=== PATIENT | female | born 1955 | race Caucasian/White ===

== ENCOUNTER 2020-12-25 15:09 | Outpatient (CLI) | payer MEDICARE, SELFPAY ==
--- NOTE | 2020-12-25 15:14 | MM_ITS ---
WS: [id number] BILATERAL DIGITAL SCREENING MAMMOGRAPHY WITH CAD CLINICAL INFORMATION: SCREENING HISTORY: Screening mammogram. No current complaints. COMPARISON: None. TECHNIQUE: Bilateral CC and MLO views. FINDINGS: Scattered fibroglandular densities bilaterally. No suspicious focal mass, asymmetry, calcifications, or architectural distortion. No evidence of malignancy. Vascular calcification. A few punctate calcif ications. MM/[place] [id number] IMPRESSION: BI-RADS: 2-Benign FOLLOW UP: 1 Year Follow-up Recommend return to annual screening mammography.
== END 2020-12-25 15:10 | disposition home or self-care (01) ==
LOC: RADSHAW 15:13
PROVIDERS: Family Provider Family Medicine; PCP Family Medicine; Visit Provider Family Medicine
DX: Z12.31 Encounter for screening mammogram for malignant neoplasm of breast (principal)
CPT/HCPCS: 77067

== ENCOUNTER 2021-03-22 14:12 | Outpatient (CLI) | payer MEDICARE, SELFPAY ==
--- NOTE | 2021-03-22 14:27 | XR_ITS ---
WS: [id number] DEXA (DUAL ENERGY X-RAY ABSORPTIOMETRY) Bone mineral density was performed using a [email or web address] machine. HISTORY: DIABETES, HYPERLIPIDEMIA, HYPERTENSION, ANNUAL EXAM COMPARISON: None available. Lumbar spine BMD (L1-L4): 1.345 g/cm2 T score: 1.4 Z score: 1.8 Total hip BMD: Left: 1.275 g/cm2. T score: 2.1 Z score: 2.6 Right: 1.257 g/cm2. T score: 2.0 Z score: 2.4 10 year probability of a major osteoporotic fracture is 8%. XR/XR DEXA axial skeleton* [id number] IMPRESSION: NORMAL BONE MINERAL DENSITY based upon the WHO classification for females.
== END 2021-03-22 14:13 | disposition home or self-care (01) ==
LOC: RADWPI 14:16
PROVIDERS: PCP Family Medicine; Visit Provider Family Medicine
DX: E11.9 Type 2 diabetes mellitus without complications (principal); E78.5 Hyperlipidemia, unspecified; Z78.0 Asymptomatic menopausal state; I10 Essential (primary) hypertension
CPT/HCPCS: 77080

== ENCOUNTER 2021-07-16 16:40 | Inpatient (IN) | payer MEDICARE, SELFPAY ==
[2021-07-16 17:04] VITALS: BP 139/82; PULSE 86; RESP 18; TEMP 36.4; O2SAT 98; BMI 42.9
--- NOTE | 2021-07-16 19:36 | CTR_ITS ---
PROCEDURE INFORMATION: Exam: CT Abdomen And Pelvis With Contrast Exam date and time: 07/16/2021 7:36 PM Age: 65 years old Clinical indication: Nausea and vomiting and other: Diarrhea; Abdominal pain; Localized; Right lower quadrant (rlq); Prior surgery; Surgery type: Hyst; Patient HX: N/v/d. Rlq pain radiating to belly button; Additional info: Eval infection TECHNIQUE: Imaging protocol: Computed tomography of the abdomen and pelvis with contrast. Radiation optimization: All CT scans at this facility use at least one of these dose optimization techniques: automated exposure control; mA and/or kV adjustment per patient size (includes targeted exams where dose is matched to clinical indication); or iterative reconstruction. Contrast material: OMNI 300; Contrast volume: 95 ml; Contrast route: INTRAVENOUS (IV); COMPARISON: CTA Chest-Pulmonary Emb [id number] 04/23/2018 9:19 AM RADIATION DOSE METRICS: Total DLP (mGy-cm): 1733.82 FINDINGS: Lungs: There is subsegmental atelectasis in the lung bases. Diaphragm: There is a small sliding-type hiatal hernia. Liver: The liver is normal. Gallbladder and bile ducts: The gallbladder is distended. The wall is thickened. There is pericholecystic edema. There is a calcified stone in the gallbladder neck at the cystic duct origin. See coronal series 602, image 48. There is no intrahepatic or extrahepatic bile duct dilation. Pancreas: There is moderate atrophy of the pancreas. Spleen: The spleen is unremarkable. Adrenal glands: There is hypertrophy of the right adrenal gland. Kidneys and ureters: The kidneys are unremarkable. No hydronephrosis or stones. No ureteral dilation. Stomach and bowel: The stomach is decompressed, preventing meaningful evaluation of wall thickness. The small bowel is nondilated. The colon is unremarkable. Appendix: The appendix is normal. Intraperitoneal space: There is no free air or significant intraperitoneal free fluid. Vasculature: There is mild aortic atherosclerotic disease. The portal, splenic and superior mesenteric veins are patent. Lymph nodes: There is no lymphadenopathy in the retroperitoneum, mesentery, pelvis or inguinal regions. Urinary bladder: The urinary bladder is unremarkable. Reproductive: The uterus is absent. There is no adnexal mass or large cyst. Bones/joints: There is mild degenerative disease in the lumbar spine. The pelvis and proximal femora are intact. Soft tissues: The abdominal wall is intact. CT/CT abdomen pelvis w con* [id number] IMPRESSION: 1. Highly suspicious findings for acute cholecystitis including gallbladder distention, wall thickening, and a stone the cystic duct origin. 2. Incidental findings above. Radiation Dose CTDIVOL = (mGy): DLP = 1733.82 (mGy-cm)
[2021-07-16 19:57] LABS: Basophils % 0.2 %; Eosinophils % 0.1 %; Hemoglobin 10.9 g/dL (11.5-15.3); Lymphocytes # 0.6 10^3/uL (0.8-4.8); Lymphocytes % 4.6 %; Mean Corpuscular HGB Conc 31.1 g/dL (30.0-36.0); Mean Corpuscular Hemoglobin 29.1 pg (28.0-34.0); Mean Corpuscular Volume 93.6 fl (81-99); Mean Platelet Volume 11.1 fL (7.4-10.4); Monocytes # 0.6 10^3/uL (0.2-0.9); Monocytes % 4.3 %; Neutrophils # 12.51 10^3/uL (1.8-7.7); Neutrophils % 90.4 %; Nucleated Red Blood Cells % 0 %; Platelet Count 188 10^3/cmm (130-400); Red Blood Count 3.74 10^6/uL (4.1-5.3); Red Cell Distribution Width 14.3 % (12.1-15.1); White Blood Count 13.8 10^3/uL (4.0-10.0)
[2021-07-16] MEDS: sodium chloride 0.9% 500 ML IV (20:02)
[2021-07-16] MEDS: lidocaine 2% viscous 15 ML, aluminum-mag hydrox-simethicon 30 ML, sucralfate oral liq 1 GM PO (20:02)
--- NOTE | 2021-07-16 20:03 | W.ED.GENADLT ---
HPI - General Adult General: Chief complaint: Abdominal Pain Stated complaint: ABD PAIN, N/V, COLD CHILLS Time Seen by Provider: 07/16/21 19:33 History of Present Illness: HPI narrative: Patient is 65-year-old female with a history obesity presents the emergency room with complaints of RUQ abdominal pain, nausea/vomiting and diarrhea x1 day. Patient states that pain started this morning and since then has been unable to tolerate p.o. Patient reported increasing chills, denies any urinary symptoms. Patient says the pain started in the right upper quadrant and shoots towards the left upper quadrant. Denies any melena/hematochezia, chest pain, shortness of breath, palpitation, or lightheadedness. No prior abdominal surgeries, no history of kidney stones. Onset: earlier today Duration:ongoing Location:home Severity: moderate Review of Systems Narrative: Constitutional: No fever, no chills. HEENT: No vision changes CV: No chest pain, no palpitations PULM: no cough, no dyspnea. GI: +RUQ abdominal pain, +N/+V/+D. : No dysuria MSKEL: No muscle pain SKIN: No new rashes, no lesions. NEURO: No headache, no focal weakness. HEME: No visible bruises PSYCH: Normal mood PFSH ED PFSH: Medical History (Updated 07/17/21 @ 15:34 by Papa Solorzano MD) Anemia Arthritis Asthma Cervical disc disease Depression Diabetes GERD (gastroesophageal reflux disease) / Hiatal hernia Gout Hyperlipidemia Hypertension Surgical History Elbow dislocation Right History of bilateral salpingo-oophorectomy (BSO) History of carpal tunnel release Right History of hysterectomy Status post bilateral knee replacements Social History (Updated 07/17/21 @ 15:27 by Papa Solorzano MD) Smoking and tobacco status: never smoked Alcohol intake: never Female Reproductive History: Date of last menstrual period: 12/14/20 Physical Exam Narrative: EXAM NARRATIVE: Head: Atraumatic Eyes: PERRL, conjunctiva without injection ENT: Mucous membrane moist NECK: Supple, ROM intact LUNGS: LCTAB, no crackles/rhonchi CV: RRR ABDOMEN: Soft, +RUQ abd ttp, no guarding rebound, guarding, rigidity. No CVA tenderness to percussion. +Shoemaker, Neg McBurney's point tenderness, no suprabupic tenderness to palpation. EXTREMITY: Normal ROM SKIN: No rash or erythema NEURO: Awake and alert, no focal motor deficits PSYCH: Normal mood and affect Course Vital Signs: Vital signs: Vital Signs Temperature 98.7 F 07/19/21 11:36 Pulse Rate 65 07/19/21 11:36 Respiratory Rate 16 07/19/21 11:36 Blood Pressure 126/73 07/19/21 07:23 Pulse Oximetry 95 07/19/21 11:36 MDM - General Adult MDM Narrative: Medical decision making narrative: 65-year-old female with history obesity presented to emergency room with complaints of right upper quadrant abdominal pain, nausea vomiting, and diarrhea this morning. On exam, patient has Shoemaker sign. No CVA tenderness, guarding no rebound tenderness. WBC of 13.8. CT showed acute cholecystitis. Patient received cefazolin in the emergency room. She will may be made n.p.o., preop labs are ordered. Disposition: OR Lab Data: Labs: Lab Results 07/16/21 07/16/21 07/16/21 19:45 19:45 19:45 WBC 13.8 10^3/uL H 10 ^3/uL (4.0-10.0) RBC 3.74 10^6/uL L 10 ^6/uL (4.1-5.3) Hgb 10.9 g/dL L g/dL (11.5-15.3) Hct 35.0 % L % (37.0-47.0) MCV 93.6 fl fl (81-99) MCH 29.1 pg pg (28.0-34.0) MCHC 31.1 g/dL g/dL (30.0-36.0) RDW 14.3 % % (12.1-15.1) Plt Count 188 10^3/cmm 10^3 /cmm (130-400) MPV 11.1 fL H fL (7.4-10.4) Neut % (Auto) 90.4 % % Lymph % (Auto) 4.6 % % [place] % (Auto) 4.3 % % Eos % (Auto) 0.1 % % Baso % (Auto) 0.2 % % Neut # (Auto) 12.51 10^3/uL H 1 0^3/uL (1.8-7.7) Lymph # (Auto) 0.6 10^3/uL L 10^ 3/uL (0.8-4.8) [place] # (Auto) 0.6 10^3/uL 10^3/ uL (0.2-0.9) Eos # (Auto) 0.0 10^3/uL 10^3/ uL (0.0-0.8) Baso # (Auto) 0.0 10^3/uL 10^3/ uL (0.0-0.1) Nucleated RBC % (a uto) 0 % % Nucleated RBCs # 0.0 /100WBC /100W BC PT 12.70 SECONDS SEC ONDS (12.1-14.9) INR 0.92 (0.8-1.2) APTT 25.1 SECONDS SECO NDS (23.9-36.7) Sodium 139 mmol/L mmol/L (136-145) Potassium 4.5 mmol/L mmol/L (3.5-5.1) Chloride 102 mmol/L mmol/L (98-107) Carbon Dioxide 24 mmol/L mmol/L (22-29) Anion Gap 17.5 (5-19) BUN 26 mg/dL H mg/dL (8-23) Creatinine 1.0 mg/dL H mg/dL (0.5-0.9) GFR Calculation 55.5 mL/min L mL/ min (90-130) Glucose 222 mg/dL H mg/dL (65-115) Calculated Osmolal ity 300 mOsm/kg H mOs m/kg (285-295) Calcium 9.0 mg/dL mg/dL (8.5-10.5) Total Bilirubin 0.2 mg/dL mg/dL (0.15-1.2) AST 15 U/L U/L (0-32) ALT 17 U/L U/L (0-33) Alkaline Phosphata se 87 IU/L IU/L (35-105) Total Protein 6.2 g/dL L g/dL (6.6-8.7) Albumin 4.2 g/dL g/dL (3.5-5.2) Globulin 2.0 g/dL g/dL (1.3-4.6) Lipase 25 U/L U/L (13-60) Imaging Data^: Other Imaging: Radiologist's impression: [facility] [id number] [place], [place] [address]VU Scan ReportSigned Patient: Ina Frey #: [id number]: [id number]#:[id number]/Sex: 65 / FADM Date: 07/16/21Loc: ERRoom/Bed:Attending Dr: Ordering Provider/Ordering MD: Alesia Alvarenga MD Date of Service: 07/16/21 Procedure(s): CT abdomen pelvis w con* [id number] Accession Number(s): [id number] Report Number: [id number] PROCEDURE INFORMATION: Exam: CT Abdomen And Pelvis With Contrast Exam date and time: 07/16/2021 7:36 PM Age: 65 years old Clinical indication: Nausea and vomiting and other: Diarrhea; Abdominal pain; Localized; Right lower quadrant (rlq); Prior surgery; Surgery type: Hyst; Patient HX: N/v/d. Rlq pain radiating to belly button; Additional info: Eval infection TECHNIQUE: Imaging protocol: Computed tomography of the abdomen and pelvis with contrast. Radiation optimization: All CT scans at this facility use at least one of these dose optimization techniques: automated exposure control; mA and/or kV adjustment per patient size (includes targeted exams where dose is matched to clinical indication); or iterative reconstruction. Contrast material: OMNI 300; Contrast volume: 95 ml; Contrast route: INTRAVENOUS (IV); COMPARISON: CTA Chest-Pulmonary Emb [id number] 04/23/2018 9:19 AM RADIATION DOSE METRICS: Total DLP (mGy-cm): 1733.82 FINDINGS: Lungs: There is subsegmental atelectasis in the lung bases. Diaphragm: There is a small sliding-type hiatal hernia. Liver: The liver is normal. Gallbladder and bile ducts: The gallbladder is distended. The wall is thickened. There is pericholecystic edema. There is a calcified stone in the gallbladder neck at the cystic duct origin. See coronal series 602, image 48. There is no intrahepatic or extrahepatic bile duct dilation. Pancreas: There is moderate atrophy of the pancreas. Spleen: The spleen is unremarkable. Adrenal glands: There is hypertrophy of the right adrenal gland. Kidneys and ureters: The kidneys are unremarkable. No hydronephrosis or stones. No ureteral dilation. Stomach and bowel: The stomach is decompressed, preventing meaningful evaluation of wall thickness. The small bowel is nondilated. The colon is unremarkable. Appendix: The appendix is normal. Intraperitoneal space: There is no free air or significant intraperitoneal free fluid. Vasculature: There is mild aortic atherosclerotic disease. The portal, splenic and superior mesenteric veins are patent. Lymph nodes: There is no lymphadenopathy in the retroperitoneum, mesentery, pelvis or inguinal regions. Urinary bladder: The urinary bladder is unremarkable. Reproductive: The uterus is absent. There is no adnexal mass or large cyst. Bones/joints: There is mild degenerative disease in the lumbar spine. The pelvis and proximal femora are intact. Soft tissues: The abdominal wall is intact. CT/CT abdomen pelvis w con* [id number] IMPRESSION: 1. Highly suspicious findings for acute cholecystitis including gallbladder distention, wall thickening, and a stone the cystic duct origin. 2. Incidental findings above. Radiation Dose CTDIVOL = (mGy): DLP = 1733.82 (mGy-cm) Dictated By:Edvin Crocker MDSigned By:Edvin Crocker MDSigned Date/Time:07/16/21D/ 35 Discharge Plan Discharge Patient Disposition: Admitted As Inpatient Admit Provider: Vadim Calderón Clinical Impression: Abdominal pain, Acute cholecystitis Condition: Stable Discharge Diet: Advance as tolerated Discharge Activity: Limit activity as instructed Coding Level of Care Code ED Community Development Technician for Paul Lovelace
[2021-07-16 20:18] LABS: Alanine Aminotransferase 17 U/L (0-33); Albumin Level 4.2 g/dL (3.5-5.2); Alkaline Phosphatase 87 IU/L (35-105); Anion Gap 17.5 (5-19); Aspartate Amino Transferase 15 U/L (0-32); Blood Urea Nitrogen 26 mg/dL (8-23); Carbon Dioxide 24 mmol/L (22-29); Chloride 102 mmol/L (98-107); Glomerular Filtration Rate 55.5 mL/min (90-130); Glucose 222 mg/dL (65-115); Lipase 25 U/L (13-60); Osmolality Calculated 300 mOsm/kg (285-295); Potassium 4.5 mmol/L (3.5-5.1); Sodium 139 mmol/L (136-145); Total Bilirubin 0.2 mg/dL (0.15-1.2); Total Protein 6.2 g/dL (6.6-8.7)
[2021-07-16 20:38] VITALS: BP 151/89; PULSE 79; RESP 16; O2SAT 97
[2021-07-16] MEDS: iohexol 300 mg/mL 100 mL Btl IV (20:46)
[2021-07-16] MEDS: ceFAZolin 1,000 MG in sodium chloride 0.9% (plus) 50 ML 100 MG IV (21:53)
[2021-07-16 21:54] LABS: INR 0.92 (0.8-1.2)
[2021-07-16 21:55] LABS: Partial Thromboplastin Time 25.1 SECONDS (23.9-36.7)
[2021-07-16 22:52] VITALS: BP 138/88; PULSE 100; RESP 16; O2SAT 93
[2021-07-16] MEDS: HYDROmorphone 1 mg/mL INJ 1 mL IVP (23:34)
[2021-07-16 23:52] LABS: Add Urine Microscopic? NO; Charge for UA Resulting for Rev
[2021-07-17] VITALS (25 sets, daily range): BP systolic 106–153; BP diastolic 59–84; PULSE 75–114; RESP 16–21; TEMP 36.4–38.2; O2SAT 90–97; BMI 43.7
[2021-07-17 00:03] LABS: Urine Appearance Clear (CLEAR); Urine Color Yellow (Yellow); pH Urine 5 (5-7)
[2021-07-17 00:04] LABS: Bilirubin Urine Neg (Negative); Blood Urine Neg (Negative); Glucose Urine UA Norm (Normal); Ketones Urine Negative (Negative); Leukocyte Esterase Urine Negative (Negative); Nitrate Urine Negative (Negative); Protein Urine Neg (Negative); Urobilinogen Urine Norm (Negative)
--- NOTE | 2021-07-17 03:56 | PM.HP ---
Providers/Chief Complaint Admitting Physician: Vadim Calderón MD Primary Care Provider: Chato Palma MD Chief Complaint: ABD PAIN, N/V, COLD CHILLS History of Present Illness Kathy Frey is a 65 year old female who developed significant right upper quadrant abdominal pain yesterday morning. She felt very gassy and bloated with the episode. She said she vomited multiple times but saw no evidence of hematemesis. She did have a bout of diarrhea yesterday. She said she began having some fevers. She came to the emergency room and imaging revealed evidence of acute calculus cholecystitis. The patient states that she has been having episodes like this on and off over the past 10 years. They have never been this bad. She has noticed that eating particular foods and especially raw foods such as vegetables will cause her pain to come on. She always assumed it was her hiatal hernia that she has been diagnosed with in the past. Review of Systems General: Reports: 10 or more systems reviewed and unremarkable except in HPI and below Const: Reports: fever(s) and chills GI: Reports: abdominal pain, nausea, vomiting and diarrhea Musc: Reports: neck pain ( Bulging disks ) Psych: Reports: depression Medications/Allergies Home Medications Medication Instructions Recorded Confirmed Last Taken Type allopurinol 300 mg PO DAILY 07/17/21 07/17/21 07/16/21 History amoxicillin 500 mg PO DIRECTED 07/17/21 07/17/21 Unknown History fluticasone propionate 1 spray INTRANASAL DAILY 07/17/21 07/17/21 07/16/21 History furosemide 20 mg PO DAILY 07/17/21 07/17/21 07/16/21 History glimepiride 2 mg PO DAILY 07/17/21 07/17/21 07/16/21 History hydrochlorothiazide 25 mg PO DAILY 07/17/21 07/17/21 07/16/21 History lisinopril 40 mg PO DAILY 07/17/21 07/17/21 07/16/21 History meclizine 25 mg PO DIRECTED 07/17/21 07/17/21 Unknown History meloxicam 7.5 mg PO DAILY 07/17/21 07/17/21 07/16/21 History metformin 850 mg PO BID 07/17/21 07/17/21 07/16/21 History omeprazole 20 mg PO DAILY 07/17/21 07/17/21 07/16/21 History propranolol 40 PO BID 07/17/21 07/16/21 History propranolol 40 mg PO BID 07/17/21 07/17/21 07/16/21 History simvastatin 20 mg PO DAILY 07/17/21 07/17/21 07/16/21 History tramadol 50 mg PO DIRECTED 07/17/21 07/17/21 07/16/21 History triamcinolone acetonide 0.1 applic TOPICAL DIRECTED 07/17/21 07/17/21 07/16/21 History Allergies Allergy/AdvReac Type Severity Reaction Status Date / Time morphine Allergy ALGY-formic Verified 07/17/21 04:22 ation ofloxacin [From Floxin] Allergy ADR-Anxiety Verified 07/16/21 23:21 PFSH Acute PFSH: Medical History (Updated 07/17/21 @ 04:24 by Vadim Calderón MD) Anemia Arthritis Asthma Cervical disc disease Depression Diabetes GERD (gastroesophageal reflux disease) / Hiatal hernia Gout Hyperlipidemia Hypertension Surgical History (Updated 07/17/21 @ 04:21 by Vadim Calderón MD) Elbow dislocation Right History of bilateral salpingo-oophorectomy (BSO) History of carpal tunnel release Right History of hysterectomy Status post bilateral knee replacements Social History (Updated 07/17/21 @ 04:21 by Vadim Calderón MD) Smoking and tobacco status: never smoked Female Reproductive History: Date of last menstrual period: 12/14/20 Vitals/I&O/Wt Last Vital Signs Temp 98.2 F 07/17/21 03:55 Pulse 102 H 07/17/21 03:55 Resp 18 07/17/21 03:55 BP 111/66 07/17/21 03:55 Pulse Ox 90 07/17/21 03:55 07/16/21 07/16/21 07/17/21 14:59 22:59 06:59 Intake Total 550 / 550 Output Total 300 / 300 Balance 250 / 250 Weight last 48 hrs Weight 279 lb Weight 278 lb Physical Exam Narrative: EXAM NARRATIVE: The patient was encountered in her hospital room. She is in no acute distress but acts like she does not feel very well. The pupils are equal. No carotid bruits are heard. The lungs are clear anteriorly. The heart is regular but she is mildly tachycardic. The abdomen is moderately to severely obese. Bowel sounds are hypoactive. She has some mild tenderness in the epigastrium and rather significant tenderness in the right upper quadrant with a positive Shoemaker's sign. No obvious masses are palpated. The extremities may reveal some very mild edema. Neurologically she appears to be grossly intact. Data : 07/16/21 19:45 07/16/21 19:45 Other Labs: Laboratory Tests 07/16/21 19:45 Total Bilirubin 0.2 AST 15 ALT [address] Abd/Pel: Radiologist's impression: CT scan abdomen/pelvis 07/16/2021 IMPRESSION: 1. Highly suspicious findings for acute cholecystitis including gallbladder distention, wall thickening, and a stone the cystic duct origin. A&P Assessment and plan (1) Calculus of gallbladder with acute cholecystitis: The patient's exam and imaging are consistent with acute calculus cholecystitis. It sounds like she has been having symptoms of biliary colic on and off for years. I discussed gallbladder disease and gallbladder surgery with the patient in some detail. Details of a cholecystectomy were gone over. We discussed surgical risks of bleeding, infection, internal organ injury, etc. The patient seems to understand and is agreeable to proceeding with a cholecystectomy. Status: Acute Attestations Medical Necessity Statement*: Based on my medical assessment, presenting symptoms, medical accuity and consideration of surgical therapy, I expect this patient will require treatment in the hospital for a period spanning at least 2 midnights. Coding Level of Care Code Acute Preflight Mechanic for Paul Lovelace Diagnoses Calculus of gallbladder with acute cholecystitis K80.00
[2021-07-17] MEDS: famotidine 20 mg/2 mL INJ IVP (04:56)
[2021-07-17] MEDS: sodium chloride 0.9% 1,000 ML 100 ML IV ×2 (04:56→13:28)
--- NOTE | 2021-07-17 10:32 | P.ANESASSM_ITS ---
Pre-Anesthetic Assessment Pre-Anesthetic Assessment: Height/Weight: Height 1.7 m Weight 126.552 kg Temp Pulse Resp BP Pulse Ox 99.8 F H 96 18 153/68 96 07/17/21 10:29 07/17/21 10:29 07/17/21 10:29 07/17/21 10:29 07/17/21 10:29 Proposed Procedure: Operation Date: 07/17/21 11:30 Proposed Procedures p Laparoscopic Cholecystectomy(Not Applicable) - Vadim Calderón MD Was Beta Leo taken within 24 hours: Yes Was Clonidine taken within 24 hours: N/A Last intake: Intake Last Liquid Date 07/16/21 Last Liquid Time 16:00 Last Solid Date 07/16/21 Last Solid Time 08:00 Social: Social History: No tobacco Exam: Pre-Anes Outpt Exam: alert, oriented x 3, clear to auscultation bilaterally and regular rate & rhythm Airway: Submandibular: WNL Cervical ROM: WNL MP: 3 CV/HEM: CV/HEM: HTN GI: GI: GERD and Hiatus hernia Metabolic: Metabolic: DM, Hyperlipidemia and Morbid obesity Anesthetic Plan: ASA status: 3 Anesthesia: Anesthesia Evaluation and General Risk of > 500 ml blood loss (7ml/kg in children): No Meds/Allergies Current Medications: Current Medications Generic Name Dose Route Start Last Admin Trade Name Freq PRN Reason Stop Dose Admin Famotidine 20 mg 07/17/21 04:00 07/17/21 04:56 Famotidine 20 Mg /2 Ml Inj IVP 20 mg Q12H AKIN Administration Sodium Chloride 1,000 mls @ 100 m ls/hr 07/17/21 04:00 07/17/21 04:56 Sodium Chloride 0.9% IV 100 mls/hr .Q10H AKIN Administration PFSH Anesthesia PFSH: Medical History (Updated 07/17/21 @ 04:24 by Vadim Calderón MD) Anemia Arthritis Asthma Cervical disc disease Depression Diabetes GERD (gastroesophageal reflux disease) / Hiatal hernia Gout Hyperlipidemia Hypertension Surgical History (Updated 07/17/21 @ 04:21 by Vadim Calderón MD) Elbow dislocation Right History of bilateral salpingo-oophorectomy (BSO) History of carpal tunnel release Right History of hysterectomy Status post bilateral knee replacements Social History (Updated 07/17/21 @ 04:21 by Vadim Calderón MD) Smoking and tobacco status: never smoked Female Reproductive History: Date of last menstrual period: 12/14/20 Data Anesthesia CBC & Chem 7: 07/16/21 19:45 07/16/21 19:45 Other Labs: Laboratory Results - last 48 hr 07/16/21 07/16/21 07/16/21 19:45 19:45 19:45 WBC 13.8 H RBC 3.74 L Hgb 10.9 L Hct 35.0 L MCV 93.6 MCH 29.1 MCHC 31.1 RDW 14.3 Plt Count 188 MPV 11.1 H Neut % (Auto) 90.4 Lymph % (Auto) 4.6 [place] % (Auto) 4.3 Eos % (Auto) 0.1 Baso % (Auto) 0.2 Neut # (Auto) 12.51 H Lymph # (Auto) 0.6 L [place] # (Auto) 0.6 Eos # (Auto) 0.0 Baso # (Auto) 0.0 Nucleated RBC % (auto) 0 Nucleated RBCs # 0.0 PT 12.70 INR 0.92 APTT 25.1 Sodium 139 Potassium 4.5 Chloride 102 Carbon Dioxide 24 Anion Gap 17.5 BUN 26 H Creatinine 1.0 H GFR Calculation 55.5 L Glucose 222 H Calculated Osmolality 300 H Calcium 9.0 Total Bilirubin 0.2 AST 15 ALT 17 Alkaline Phosphatase 87 Total Protein 6.2 L Albumin 4.2 Globulin 2.0 Lipase 25 Urine Color Urine Appearance Urine pH Ur Specific [place] Urine Protein Urine Glucose (UA) Urine Ketones Urine Blood Urine Nitrate Urine Bilirubin Urine Urobilinogen Ur Leukocyte Esterase 07/16/21 23:45 WBC RBC Hgb Hct MCV MCH MCHC RDW Plt Count MPV Neut % (Auto) Lymph % (Auto) [place] % (Auto) Eos % (Auto) Baso % (Auto) Neut # (Auto) Lymph # (Auto) [place] # (Auto) Eos # (Auto) Baso # (Auto) Nucleated RBC % (auto) Nucleated RBCs # PT INR APTT Sodium Potassium Chloride Carbon Dioxide Anion Gap BUN Creatinine GFR Calculation Glucose Calculated Osmolality Calcium Total Bilirubin AST ALT Alkaline Phosphatase Total Protein Albumin Globulin Lipase Urine Color Yellow Urine Appearance Clear Urine pH 5 Ur Specific [place] 1.010 Urine Protein Neg Urine Glucose (UA) Norm Urine Ketones Negative Urine Blood Neg Urine Nitrate Negative Urine Bilirubin Neg Urine Urobilinogen Norm Ur Leukocyte Esterase Negative Cardiac Studies: No Data to Display
--- NOTE | 2021-07-17 10:49 | PC.NURSE ---
OFF UNIT OFF FLOOR VIA OR CREW WITH FAMILY AT SIDE
[2021-07-17] MEDS: sodium chloride 0.9% 1,000 ML 30 ML IV (11:05)
[2021-07-17] MEDS: fentaNYL 50 mcg/mL INJ 2mL IVP ×2 (11:06→13:30)
[2021-07-17] MEDS: metroNIDAZOLE IV 500 MG/100 ML PREMIX 100 MG IV (12:00)
[2021-07-17] MEDS: ceFAZolin 1,000 mg SDV 1000 MG (12:14)
--- NOTE | 2021-07-17 12:59 | PM.OP ---
Operative Report Date of procedure: July 17, 2021 Pre-op Diagnosis: Acute calculus cholecystitis. Post-op diagnosis: same Procedure Done: Laparoscopic cholecystectomy. Specimens removed/disposition: 1. Gallbladder. 2. Bile sent for culture. Surgeon: Vadim Calderón Anesthesia: General Estimated blood loss (mL): 5 Complications: None. Condition: stable Disposition: PACU Procedure: The patient was brought to the Operating Room and was placed in a supine position on the Operating Room table. General endotracheal anesthesia was induced. The abdomen was prepped and draped in a sterile fashion. A small vertical incision was carried out above the umbilicus. Blunt dissection was carried out down to the fascia, which was grasped with a Ra clamp. A stay suture of 0 Vicryl was placed on either side of the midline and the midline fascia was incised. The underlying peritoneum was opened bluntly and the Lucia port was placed directly into the peritoneal cavity and was held in place with the inflatable balloon. The peritoneal cavity was insufflated with carbon dioxide. The laparoscope was used to inspect the abdominal cavity. No gross abnormalities were initially noted. A 5 millimeter port was placed in the epigastrium under direct vision. Two 5-millimeter ports were placed on the right side of the abdomen under direct vision. The omentum was brushed back and the gallbladder was identified. It was very distended and had inflammatory changes consistent with acute cholecystitis. A laparoscopic needle was used to drain about 50 mL of malodorous bile from the gallbladder. Some of this was sent for culture. The gallbladder was then grasped and was elevated. The patient had subacute inflammation in the tissues around the gallbladder with some inflammatory peel. Blunt dissection and hydrodissection were carried out in the infundibular region of the gallbladder and the cystic duct and cystic artery were identified. The gallbladder was partially removed from the liver bed using cautery and the spatula to confirm the anatomy before the structures were clipped and divided. The gallbladder was then removed from the liver bed using cautery and the spatula. The plane between the gallbladder showed some head areas consistent with early necrosis. There was a small amount of purulence, as well. After the gallbladder had been removed from the liver bed, the laparoscope was moved to the epigastric port and the gallbladder was removed from the peritoneal cavity through the umbilical port site after being placed in a laparoscopic bag. The perihepatic spaces were extensively irrigated with saline. A 19 [place] fluted Aries drain was brought into the abdomen and then out through the lateral 5 mm port site on the right side. The drain was placed in the subhepatic space and then was sutured in at the skin with a suture of 2-0 silk. The stay sutures of Vicryl were tied to each other at the umbilicus. An additional [id number] suture of 0 Vicryl was placed, closing the defect so that it was airtight. The perihepatic spaces were irrigated once again with saline and the liver bed was reinspected. No ongoing problems were seen. The remaining ports were removed from the abdominal wall and the pneumoperitoneum was evacuated. All remaining skin incisions were closed using inverted interrupted sutures of 4-0 Vicryl. Benzoin and Steri-Strips were placed over the incisions and Band-Aids followed. The patient was taken to the Recovery Area in stable condition postoperatively.
[2021-07-17] MEDS: ondansetron 2 mg/ML SDV 2 mL 4 MG IVP (13:24)
--- NOTE | 2021-07-17 14:29 | PC.NURSE ---
OR NOTE UP VIA [facility] WITH JUSTA, RN AT SIDE - 02 PLACED ON AT 2LNC - AP RRR - LUNGS COARSE THROUGHOUT - IV PATENT TO RIGHT AC VIA PUMP - ABD SOFT WITH NO DISTENTION BS PRESENT - BAND AID X3 NOTED TO BE C/D/I WITH JONO COMPRESSED WITH SEROSANG DRAINAGE - NEGRITA MARIYA'S/SCD'S IN PLACE - VSS - AT SIDE
--- NOTE | 2021-07-17 14:50 | PC.PHAR ---
pt states she takes care of her own medications-pt verified medications entered
--- NOTE | 2021-07-17 15:24 | P.CONIM_ITS ---
Providers/Reason For Consult Consulting Physician/Specialty*: Papa Solorzano MD, hospitalist Reason for Consult*: Medical management Attending Physician: Vadim Calderón MD Primary Care Provider: Chato Palma MD History of Present Illness History of Present Illness Kathy Frey is a 65 year old female who presented to the emergency department with right upper quadrant discomfort. She was admitted on surgical service for acute cholecystitis, and underwent laparoscopic cholecystectomy today. From my understanding the gallbladder was not perforated, but did demonstrate some early necrosis. I saw the patient in the direct postoperative. At that time she was still very sleepy from the sedative effect from the operation. Review of Systems General: Reports: ROS unobtainable due to mental status (Still sedated from anesthesia) Meds/Allergies Home Medications and Allergies Home Medications Medication Instructions Recorded Confirmed Last Taken Type albuterol sulfate [Ventolin HFA] 2 puff INHALATION Q4H PRN 07/17/21 07/17/21 Unknown History allopurinol 300 mg PO QAM 07/17/21 07/17/21 Unknown History ascorbic acid (vitamin C) [Vitamin 1,000 mg PO DAILY 07/17/21 07/17/21 Unknown History C] fluticasone propionate 1 - 2 spray INTRANASAL DAILY PRN 07/17/21 07/17/21 Unknown History furosemide 20 mg PO QAM 07/17/21 07/17/21 Unknown History glimepiride 2 mg PO BID 07/17/21 07/17/21 Unknown History hydrochlorothiazide 25 mg PO DAILY 07/17/21 07/17/21 Unknown History lisinopril 40 mg PO DAILY 07/17/21 07/17/21 Unknown History meclizine 25 mg PO QID PRN 07/17/21 07/17/21 Unknown History meloxicam 7.5 mg PO DAILY 07/17/21 07/17/21 Unknown History metformin See Rx Instructions .ROUTE .COMPLEX 07/17/21 07/17/21 Unknown History multivitamin 1 tab PO DAILY 07/17/21 07/17/21 Unknown History omeprazole 20 mg PO QAM 07/17/21 07/17/21 Unknown History propranolol 40 mg PO BID 07/17/21 07/17/21 Unknown History simvastatin 20 mg PO BEDTIME 07/17/21 07/17/21 Unknown History tramadol 50 mg PO QID PRN 07/17/21 07/17/21 Unknown History triamcinolone acetonide 1 applic TOPICAL BID PRN 07/17/21 07/17/21 Unknown History venlafaxine 150 mg PO QAM 07/17/21 07/17/21 Unknown History Allergies Allergy/AdvReac Type Severity Reaction Status Date / Time morphine Allergy ALGY-formic Verified 07/17/21 14:50 ation ofloxacin [From Floxin] Allergy ADR-Anxiety Verified 07/17/21 14:50 Current Medications Current Medications Generic Name Dose Route Start Last Admin Trade Name Freq PRN Reason Stop Dose Admin Famotidine 20 mg 07/17/21 04:00 07/17/21 04:56 Famotidine 20 Mg/2 Ml Inj IVP 20 mg Q12H AKIN Administration Sodium Chloride 1,000 mls @ 100 mls/hr 07/17/21 04:00 07/17/21 11:04 Sodium Chloride 0.9% IV Infused .Q10H AKIN Infusion PFSH Acute PFSH: Medical History (Updated 07/17/21 @ 15:34 by Papa Solorzano MD) Anemia Arthritis Asthma Cervical disc disease Depression Diabetes GERD (gastroesophageal reflux disease) / Hiatal hernia Gout Hyperlipidemia Hypertension Surgical History Elbow dislocation Right History of bilateral salpingo-oophorectomy (BSO) History of carpal tunnel release Right History of hysterectomy Status post bilateral knee replacements Social History (Updated 07/17/21 @ 15:27 by Papa Solorzano MD) Smoking and tobacco status: never smoked Alcohol intake: never Female Reproductive History: Date of last menstrual period: 12/14/20 Supplemental PFSH Information: Family history not obtainable, currently sleepy from sedation. Vitals/I&O/Wt Last Vital Signs Temp 100 F H 07/17/21 13:50 Pulse 78 07/17/21 13:50 Resp 16 07/17/21 13:50 BP 112/63 07/17/21 13:50 Pulse Ox 95 07/17/21 13:50 07/17/21 07/17/21 07/17/21 06:59 14:59 22:59 Intake Total 550 / 550 1600 / 1600 Output Total 300 / 300 260 / 260 Balance 250 / 250 1340 / 1340 Weight last 48 hrs Weight 126.552 kg Weight 126.099 kg Physical Exam Narrative: EXAM NARRATIVE: General exam is a white female in no apparent distress HEENT: Pupils equally round. Oropharynx clear. Neck is supple no lymphadenopathy thyromegaly Cardiovascular regular rate and rhythm without murmur, no S3 or S4 Lungs clear no wheezing or crackles Abdomen with a few bowel sounds. Drain is noted right upper quadrant. Laparoscopy sites with Band-Aids. No obvious organomegaly. exam is deferred Extremities no cyanosis clubbing or edema, cap refill brisk Skin no rash Neuro no focal deficits. Data Other Data: Other data: INR is normal LFTs are normal Calcium 9.0 Urinalysis negative Abdomen pelvis CT significant for acute cholecystitis Blood cultures were not drawn A&P Assessment and plan (1) Acute cholecystitis: Continue Zosyn IV Secondary to fever, check blood culture although yield low considering patient already on antibiotics Status: Acute (2) Asthma: No evidence of acute exacerbation. DuoNeb as needed. Status: Acute (3) Diabetes: Sliding scale insulin. When initiating diet start consistent carb. Hold Metformin secondary to possible interaction with radiological dye Hold Amaryl secondary to potential for hypoglycemia with unpredictable p.o. intake. Status: Acute (4) Hypertension: Continue home medications Status: Acute (5) GERD (gastroesophageal reflux disease): Protonix p.o. Status: Acute Additional A&P Information History of depression, continue home medications Full code Heparin for DVT prophylaxis Thank you for this consultation. Consult Attestations Medical Necessity Statement: As per primary Time Spent in Patient Care: Greater than 35 minutes Coding Level of Care Code Acute Rehabilitation Services Manager for [facility] Diagnoses Acute cholecystitis K81.0 Asthma J45.909 Diabetes E11.9 Hypertension I10 GERD (gastroesophageal reflux disease) K21.9
[2021-07-17] MEDS: levalbuterol 0.63 mg/3 mL Neb INHALATION ×2 (15:32→19:57)
[2021-07-17] MEDS: hydroCHLOROthiazide 25 mg Tablet PO (15:57)
[2021-07-17] MEDS: TRAMadol 50 mg Tablet PO ×2 (15:58→21:11)
[2021-07-17] MEDS: pantoprazole DR 40 mg Tablet PO (15:58)
[2021-07-17] MEDS: lisinopril 20 mg Tablet 40 MG PO (15:58)
[2021-07-17] MEDS: piperacillin-tazobactam 3.375 GM in sodium chloride 0.9% (plus) 50 ML IV ×2 (15:58→23:15)
--- NOTE | 2021-07-17 16:14 | ANE.PACU2 ---
Inpatient post-anesthesia follow up: Airway intact: Yes Vital signs: Temperature 100 F Pulse Rate [Monito r] 86 Pulse Rate 82 Respiratory Rate 17 Blood Pressure [Le ft Arm] 139/82 Blood Pressure 112/63 Pulse Oximetry 93 Oxygen Delivery Me thod Nasal Cannula Oxygen Flow Rate 2 Fraction of Inspir ed Oxygen Hydration adequate: Yes Nausea and vomiting: No Pain level: 2 Mental status: Baseline
[2021-07-17] MEDS: propranolol 40 mg Tablet PO (17:16)
[2021-07-17] MEDS: heparin 5,000 unit/mL INJ 1 mL 5000 UNIT SUBCUT (21:11)
[2021-07-18] VITALS (12 sets, daily range): BP systolic 99–135; BP diastolic 59–73; PULSE 71–84; RESP 16–18; TEMP 36.7–37; O2SAT 91–95
[2021-07-18] MEDS: levalbuterol 0.63 mg/3 mL Neb INHALATION ×3 (00:35→11:23)
[2021-07-18] MEDS: sodium chloride 0.9% 1,000 ML 100 ML IV ×3 (00:58→20:03)
[2021-07-18 02:58] LABS: Basophils % 0.2 %; Hematocrit 29.5 % (37.0-47.0); Lymphocytes # 0.9 10^3/uL (0.8-4.8); Lymphocytes % 8.6 %; Mean Corpuscular HGB Conc 30.5 g/dL (30.0-36.0); Mean Corpuscular Volume 95.2 fl (81-99); Mean Platelet Volume 11.5 fL (7.4-10.4); Monocytes # 0.5 10^3/uL (0.2-0.9); Monocytes % 4.6 %; Neutrophils # 9.02 10^3/uL (1.8-7.7); Nucleated Red Blood Cells % 0 %; Platelet Count 151 10^3/cmm (130-400); Red Cell Distribution Width 14.7 % (12.1-15.1); White Blood Count 10.5 10^3/uL (4.0-10.0)
[2021-07-18 03:21] LABS: Blood Urea Nitrogen 23 mg/dL (8-23); Calcium 7.9 mg/dL (8.5-10.5); Carbon Dioxide 24 mmol/L (22-29); Chloride 106 mmol/L (98-107); Glomerular Filtration Rate 55.5 mL/min (90-130); Glucose 153 mg/dL (65-115); Osmolality Calculated 299 mOsm/kg (285-295); Sodium 141 mmol/L (136-145)
[2021-07-18] MEDS: TRAMadol 50 mg Tablet PO ×4 (03:49→19:56)
[2021-07-18] MEDS: piperacillin-tazobactam 3.375 GM in sodium chloride 0.9% (plus) 50 ML IV ×3 (06:33→21:52)
[2021-07-18] MEDS: lisinopril 20 mg Tablet 40 MG PO (08:17)
[2021-07-18] MEDS: hydroCHLOROthiazide 25 mg Tablet PO (08:17)
[2021-07-18] MEDS: heparin 5,000 unit/mL INJ 1 mL 5000 UNIT SUBCUT ×2 (08:17→19:57)
[2021-07-18] MEDS: pantoprazole DR 40 mg Tablet PO (08:18)
[2021-07-18] MEDS: fluticasone nasal spray 16gm Btl 1 SPRAY INTRANASAL (08:18)
[2021-07-18] MEDS: propranolol 40 mg Tablet PO ×2 (08:18→17:09)
--- NOTE | 2021-07-18 09:07 | PM.PN ---
Subjective Subjective: Interval history: Lupe reports she is feeling better. Minimal discomfort in her abdomen. No nausea. Tolerating clear liquids. Medications: Reviewed: Yes Vitals/I&O/Wt Last Vital Signs Temp 98.2 F 07/18/21 07:51 Pulse 84 07/18/21 07:59 Resp 16 07/18/21 07:53 BP 128/72 07/18/21 07:51 Pulse Ox 93 07/18/21 07:53 07/17/21 07/18/21 07/18/21 22:59 06:59 14:59 Intake Total 530 / 2130 50 / 2180 Output Total 45 / 305 Balance 485 / 1825 50 / 1875 Weight last 48 hrs Weight 126.552 kg Weight 126.099 kg Physical Exam Narrative: EXAM NARRATIVE: General exam is a white female in no apparent distress Neck is supple no lymphadenopathy thyromegaly Cardiovascular regular rate and rhythm without murmur, no S3 or S4 Lungs clear no wheezing or crackles Abdomen with a few bowel sounds. Drain is noted right upper quadrant. Laparoscopy sites with without erythema or drainage Extremities no cyanosis clubbing or edema, cap refill brisk Data : 07/18/21 02:23 07/18/21 02:23 Micro: Microbiology 07/17/21 16:37 Blood Culture - Preliminary Blood SPECIMEN COLLECTED 07/17/21 16:37 Blood Culture - Preliminary Blood SPECIMEN COLLECTED A&P Assessment and plan (1) Acute cholecystitis: Continue Zosyn IV Blood cultures no growth to date Status: Acute (2) Asthma: No evidence of acute exacerbation. DuoNeb as needed. Status: Acute (3) Diabetes: Sliding scale insulin. When initiating diet start consistent carb. Hold Metformin secondary to possible interaction with radiological dye Hold Amaryl secondary to potential for hypoglycemia with unpredictable p.o. intake. Status: Acute (4) Hypertension: Continue home medications Lasix held as well in the postoperative state but hydrochlorothiazide, lisinopril continued. Status: Acute (5) GERD (gastroesophageal reflux disease): Protonix p.o. Status: Acute Additional A&P Information History of depression, continue home medications Full code Heparin for DVT prophylaxis Attestations Medical Necessity Statement*: As per primary Coding Level of Care Code Acute Size Stamper for [facility] Diagnoses Acute cholecystitis K81.0 Asthma J45.909 Diabetes E11.9 Hypertension I10 GERD (gastroesophageal reflux disease) K21.9
--- NOTE | 2021-07-18 09:28 | PC.CHAP ---
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 apple thinner visit [] Patient/Family/Request visit [] Outpatient visit [] Follow-up visit [] Physician referral [] Code/Alert [x] Routine visit [] Staff referral [] Actively dying [] Patient sleeping [] Family support [] [] Out of room [] Palliative care [] [] Receiving care in room [] Pre-surgical visit [] Trauma [] Long length of stay [] ICU visit [] Other: Relational/Emotional Strength [x] Patient feels connected with others/family/visitors/staff [] Distress [] Loneliness/isolation [] Abandonment Spirituality of Patient [x] Person of Lakeisha [] Attends Restorationist of their Lakeisha x[x] Believes in Prayer [] Reads Bible or Synagogue materials [] There are Spiritual issues to be addressed Coping Machine Assembler Interventions [x Prayer [x Active listening [x] Non-anxious presence [x] Spiritual/emotional support [] Crisis/trauma care [] Spiritual counseling [] Bereavement support [] Provided bereavement packet [] Provided Bible/devotional materials [] Provided toy/stuffed animal, coloring book to patient or family member [] Provided Communion [] Anointing/[place] [] Salvation [x] Completed spiritual assessment [] Other: Impact on Illness or Injury [] Angry [] Fearful [] Anxious [] Often cries [] Exhaustion [] Unable to work [] Unable to attend yarsani [] Unable to walk/stand [] Unable to read [] Unable to drive [] Unable to eat/drink [] Unable to sleep [] Unable to be with family [] Patient intubated [] Other: Summary patient still having pain Time spent with patient 10 min
--- NOTE | 2021-07-18 10:15 | PM.PN ---
Subjective Subjective: Interval history: The patient is feeling better. She is passing a little bit of flatus. She is not hungry but is tolerating some clear liquids. Vitals/I&O/Wt Last Vital Signs Temp 98.2 F 07/18/21 07:51 Pulse 84 07/18/21 07:59 Resp 16 07/18/21 07:53 BP 128/72 07/18/21 07:51 Pulse Ox 93 07/18/21 07:53 07/17/21 07/18/21 07/18/21 22:59 06:59 14:59 Intake Total 530 / 2180 50 / 2180 Output Total 45 / 305 Balance 485 / 1875 50 / 1875 Weight last 48 hrs Weight 279 lb Weight 278 lb Physical Exam Narrative: EXAM NARRATIVE: The patient is afebrile and vital signs appear to be within normal limits. Bowel sounds are infrequent. The Aries drain has some cloudy serosanguineous fluid in the bulb. Data : 07/18/21 02:23 07/18/21 02:23 Micro: Microbiology 07/17/21 16:37 Blood Culture - Preliminary Blood SPECIMEN COLLECTED 07/17/21 16:37 Blood Culture - Preliminary Blood SPECIMEN COLLECTED A&P Assessment and plan (1) Calculus of gallbladder with acute cholecystitis: Status post laparoscopic cholecystectomy on 07/17/2021. The patient's gallbladder showed some early evidence of necrosis and some purulence in the liver bed. Gram stain showed heavy gram-negative rods and there is already heavy growth on the plates per microbiology. Awaiting identification and sensitivities. Continue broad-spectrum intravenous antibiotics. Increase activity. Advance diet when patient desires. Status: Acute Attestations Medical Necessity Statement*: Patient requires continued inpatient care for intravenous antibiotics. Coding Level of Care Code Acute Grain Oilseed Or Pasture Grower for [facility] Diagnoses Calculus of gallbladder with acute cholecystitis K80.00
[2021-07-18] MEDS: acetaminophen 325 mg Tablet 650 MG PO (20:37)
[2021-07-19] VITALS (9 sets, daily range): BP systolic 108–126; BP diastolic 60–76; PULSE 60–85; RESP 16–18; TEMP 36.3–37.1; O2SAT 90–96
[2021-07-19] MEDS: levalbuterol 0.63 mg/3 mL Neb INHALATION ×2 (00:09→03:18)
[2021-07-19] MEDS: TRAMadol 50 mg Tablet PO ×2 (01:58→08:28)
[2021-07-19 03:26] LABS: Basophils % 0.3 %; Eosinophils # 0.1 10^3/uL (0.0-0.8); Eosinophils % 1.3 %; Hematocrit 27.6 % (37.0-47.0); Hemoglobin 8.2 g/dL (11.5-15.3); Lymphocytes # 1.5 10^3/uL (0.8-4.8); Lymphocytes % 15.4 %; Mean Corpuscular HGB Conc 29.7 g/dL (30.0-36.0); Mean Corpuscular Hemoglobin 28.6 pg (28.0-34.0); Mean Corpuscular Volume 96.2 fl (81-99); Mean Platelet Volume 11.1 fL (7.4-10.4); Monocytes # 0.6 10^3/uL (0.2-0.9); Monocytes % 6.4 %; Neutrophils # 7.24 10^3/uL (1.8-7.7); Neutrophils % 76.1 %; Nucleated Red Blood Cells % 0 %; Platelet Count 137 10^3/cmm (130-400); Red Blood Count 2.87 10^6/uL (4.1-5.3); Red Cell Distribution Width 14.4 % (12.1-15.1); White Blood Count 9.5 10^3/uL (4.0-10.0)
[2021-07-19 03:51] LABS: Anion Gap 9.8 (5-19); Blood Urea Nitrogen 18 mg/dL (8-23); Calcium 7.6 mg/dL (8.5-10.5); Carbon Dioxide 27 mmol/L (22-29); Chloride 102 mmol/L (98-107); Glomerular Filtration Rate 49.7 mL/min (90-130); Glucose 123 mg/dL (65-115); Osmolality Calculated 283 mOsm/kg (285-295); Potassium 3.8 mmol/L (3.5-5.1); Sodium 135 mmol/L (136-145)
[2021-07-19] MEDS: venlafaxine ER (24HR) 150 mg Capsule PO (05:28)
[2021-07-19] MEDS: piperacillin-tazobactam 3.375 GM in sodium chloride 0.9% (plus) 50 ML IV (05:28)
[2021-07-19] MEDS: pantoprazole DR 40 mg Tablet PO (08:27)
[2021-07-19] MEDS: heparin 5,000 unit/mL INJ 1 mL 5000 UNIT SUBCUT (08:28)
[2021-07-19] MEDS: lisinopril 20 mg Tablet 40 MG PO (08:28)
[2021-07-19] MEDS: propranolol 40 mg Tablet PO (08:28)
[2021-07-19] MEDS: hydroCHLOROthiazide 25 mg Tablet PO (08:28)
--- NOTE | 2021-07-19 09:19 | P.PN_ITS ---
Subjective Subjective: Interval history: Kathy reports she is feeling well. We discussed her anemia a little bit and she reports this is well known and been followed for years. She reports no nausea and has been tolerating clear liquids well. Abdominal pain is minor. Medications: Reviewed: Yes Vitals/I&O/Wt Last Vital Signs Temp 98.8 F 07/19/21 07:23 Pulse 65 07/19/21 07:46 Resp 16 07/19/21 07:46 BP 126/73 07/19/21 07:23 Pulse Ox 95 07/19/21 07:46 07/18/21 07/19/21 07/19/21 22:59 06:59 14:59 Intake Total 2028.333 / 3488.333 50 / 3538.333 Output Total 610 / 610 60 / 670 Balance 1418.333 / 2878.333 -10 / 2868.333 Physical Exam Narrative: EXAM NARRATIVE: General exam is a white female in no apparent distress Neck is supple no lymphadenopathy thyromegaly Cardiovascular regular rate and rhythm without murmur, no S3 or S4 Lungs clear no wheezing or crackles Abdomen bowel sounds noted. Overall benign. Surgical site without any evidence of infection Extremities no cyanosis clubbing or edema, cap refill brisk Data : 07/19/21 03:11 07/19/21 03:11 Micro: Microbiology 07/17/21 16:37 Blood Culture - Preliminary Blood NEGATIVE TO DATE 07/17/21 16:37 Blood Culture - Preliminary Blood NEGATIVE TO DATE 07/17/21 12:00 Gram Stain - Final Gallbladder Fluid Body Fluid Culture - Preliminary Gram Negative Rods A&P Assessment and plan (1) Acute cholecystitis: Continue Zosyn IV Blood cultures no growth to date Culture from gallbladder fossa growing gram-negative rods, ID and sensitivity pending. Hopefully this will be available today. When discharged, recommend short outpatient course of antibiotics. Status: Acute (2) Asthma: No evidence of acute exacerbation. DuoNeb as needed. Status: Acute (3) Diabetes: Sliding scale insulin. When initiating diet start consistent carb. Hold Metformin secondary to possible interaction with radiological dye Hold Amaryl secondary to potential for hypoglycemia with unpredictable p.o. intake. Status: Acute (4) Hypertension: Hold hydrochlorothiazide today, Lasix 20 mg IV x1 secondary to I and O mismatch and mild hyponatremia Status: Acute (5) GERD (gastroesophageal reflux disease): Protonix p.o. Status: Acute Additional A&P Information Mild increase in creatinine. Hold Toradol at this point. History of depression, continue home medications Full code Heparin for DVT prophylaxis Attestations Medical Necessity Statement*: As per primary Coding Level of Care Code Acute Agribusiness Internship for [facility] Diagnoses Acute cholecystitis K81.0 Asthma J45.909 Diabetes E11.9 Hypertension I10 GERD (gastroesophageal reflux disease) K21.9
[2021-07-19] MEDS: fluticasone nasal spray 16gm Btl 1 SPRAY INTRANASAL (09:33)
--- NOTE | 2021-07-19 10:19 | P.DS_ITS ---
Discharge Providers Date of Admission: 07/16/21 21:41 Date of Discharge: July 19, 2021 Attending Provider at Admission: Vadim Calderón MD Attending Provider at Discharge: Vadim Calderón MD Primary Care Provider: Chato Palma MD Diagnoses at Discharge Discharge Diagnosis (1) Acute cholecystitis: Status: Acute (2) Asthma: Status: Acute (3) Diabetes: Status: Acute (4) Hypertension: Status: Acute (5) GERD (gastroesophageal reflux disease): Status: Acute Permanent problem details: / Hiatal hernia Reason for Visit Reason for Visit: ABD PAIN, N/V, COLD CHILLS Discharge Data Data Completed and Pending: Completed Studies During Hospitalization Category Date Time Status CT abdomen pelvis w con* [id number] Urge nt Cat Scan 07/16/21 19:36 Completed Pathology: Surgic al [PTH] Routine Pth 07/17/21 12:47 Completed Pending at discharge Category Date Time Status ES surgery / GI i mages Routine Exams 07/17/21 10:30 Ordered Blood Culture Sta t Lab 07/17/21 16:37 Results Body Fluid Cultur e & GS Routine Lab 07/17/21 12:00 Results Labs from last 24 hours 07/19/21 07/19/21 03:11 03:11 WBC 9.5 RBC 2.87 L Hgb 8.2 L Hct 27.6 L MCV 96.2 MCH 28.6 MCHC 29.7 L RDW 14.4 Plt Count 137 MPV 11.1 H Neut % (Auto) 76.1 Lymph % (Auto) 15.4 [place] % (Auto) 6.4 Eos % (Auto) 1.3 Baso % (Auto) 0.3 Neut # (Auto) 7.24 Lymph # (Auto) 1.5 [place] # (Auto) 0.6 Eos # (Auto) 0.1 Baso # (Auto) 0.0 Nucleated RBC % (a uto) 0 Nucleated RBCs # 0.0 Sodium 135 L Potassium 3.8 Chloride 102 Carbon Dioxide 27 Anion Gap 9.8 BUN 18 Creatinine 1.1 H GFR Calculation 49.7 L Glucose 123 H Calculated Osmolal ity 283 L Calcium 7.6 L Body Fluid Culture Preliminary 07/19/21-1017 Organism 1 CITROBACTER FREUNDII COMPLEX Growth HEAVY Organism 2 Klebsiella pneumoniae Growth HEAVY DAY 2 CITR FRECO Kleb pneum M.I.C. RX M.I.C. RX --------- ------ --------- ------ * Amikacin <=16 S <=16 S * Amoxicillin/Clavulanate >16/8 R <=8/4 S * Ampicillin >16 R >16 R * Ampicillin/Sulbactam >16/8 R <=8/4 S * Aztreonam 16 I <=4 S * Cefepime <=8 S <=8 S * Ceftriaxone 32 R <=1 S * Cefuroxime >16 R <=4 S * Ciprofloxacin <=1 S <=1 S * Gentamicin <=2 S <=2 S * Imipenem 2 I <=1 S * Levofloxacin <=2 S <=2 S * Tetracycline <=4 S <=4 S * Trimethoprim/Sulfamethoxazole <=2/38 S <=2/38 S * Piperacillin/Tazobactam <=16 S <=16 S Vitals: Last Vital Signs Temp 98.8 F 07/19/21 07:23 Pulse 65 07/19/21 07:46 Resp 16 07/19/21 07:46 BP 126/73 07/19/21 07:23 Pulse Ox 95 07/19/21 07:46 Discharge Plan Discharge Condition: Stable Prescriptions: No Action allopurinol 300 mg tablet 300 mg PO QAM RF: 0 fluticasone propionate 50 mcg/actuation spray,suspension 1 - 2 spray INTRANASAL DAILY PRN (Reason: Allergy Symptoms) RF: 0 furosemide 20 mg tablet 20 mg PO QAM RF: 0 glimepiride 2 mg tablet 2 mg PO BID RF: 0 lisinopril 40 mg tablet 40 mg PO DAILY RF: 0 meclizine 25 mg tablet 25 mg PO QID PRN (Reason: Nausea) RF: 0 meloxicam 7.5 mg tablet 7.5 mg PO DAILY RF: 0 metformin 850 mg tablet See Rx Instructions .ROUTE .COMPLEX RF: 0 omeprazole 20 mg capsule,delayed release(DR/EC) 20 mg PO QAM RF: 0 simvastatin 20 mg tablet 20 mg PO BEDTIME RF: 0 tramadol 50 mg tablet 50 mg PO QID PRN (Reason: Pain) RF: 0 hydrochlorothiazide 25 mg tablet 25 mg PO DAILY RF: 0 triamcinolone acetonide 0.1 % cream 1 applic TOPICAL BID PRN (Reason: unknown) RF: 0 propranolol 40 mg tablet 40 mg PO BID RF: 0 multivitamin Tablet 1 tab PO DAILY RF: 0 Vitamin C 1,000 mg Tablet 1,000 mg PO DAILY RF: 0 venlafaxine 150 mg capsule,extended release 24hr 150 mg PO QAM RF: 0 Ventolin HFA 90 mcg/actuation Hfa Aerosol Inhaler 2 puff INHALATION Q4H PRN (Reason: Shortness Of Breath) RF: 0 Referrals: Chato Palma MD [Primary Care Provider] - Coding Level of Care Code Acute Chg [facility] note Diagnoses Acute cholecystitis K81.0 Asthma J45.909 Diabetes E11.9 Hypertension I10 GERD (gastroesophageal reflux disease) K21.9
--- NOTE | 2021-07-19 10:23 | PM.DCS ---
Discharge Providers Date of Admission: 07/16/21 21:41 Date of Discharge: July 19, 2021 Attending Provider at Admission: Vadim Calderón MD Attending Provider at Discharge: Vadim Calderón MD Primary Care Provider: Chato Palma MD Diagnoses at Discharge Discharge Diagnosis (1) Acute cholecystitis: Status: Acute (2) Asthma: Status: Acute (3) Diabetes: Status: Acute (4) Hypertension: Status: Acute (5) GERD (gastroesophageal reflux disease): Status: Acute Permanent problem details: / Hiatal hernia Reason for Visit Reason for Visit: ABD PAIN, N/V, COLD CHILLS Hospital Course Hospital Course This is a 65-year-old white female who presented to the hospital with abdominal pain. Imaging revealed evidence consistent with acute calculus cholecystitis. She was taken to the operating room and was found to have acute cholecystitis with early gangrenous changes and some purulence in the liver bed. A Aries drain was left in place and she was kept on broad-spectrum antibiotics. The hospitalist service was consulted for medical management. The patient's white blood cell count defervesced and she reached a point where she continued to be afebrile. By 07/19/2020 she was much more comfortable and was anxious to go home. She was tolerating an oral diet even though her appetite had not fully recovered. She was passing flatus. Her Aries drain was only draining some light-colored serosanguineous fluid by that time. Some bile had been sent for culture intraoperatively and grew some Citrobacter as well as some Klebsiella. Both organisms were sensitive to Bactrim, which the patient was sent home on. Arrangements were made for the Aries drain to be left in and for her to empty it at home until early next week. She was instructed with respect to wound care, emptying the Aries drain, activity limitations, diet, etc. I am going to make arrangements for the patient to follow-up with me in the office early next week. Physical Exam Narrative: EXAM NARRATIVE: 05/19/2021: Bowel sounds are present. All of the surgical wounds look good. She is developing a small contusion around the umbilicus. The Aries drain has some light-colored serosanguineous fluid in the bulb. Discharge Data Data Completed and Pending: Completed Studies During Hospitalization Category Date Time Status CT abdomen pelvis w con* [id number] Urge nt Cat Scan 07/16/21 19:36 Completed Pathology: Surgic al [PTH] Routine Pth 07/17/21 12:47 Completed Pending at discharge Category Date Time Status ES surgery / GI i mages Routine Exams 07/17/21 10:30 Ordered Blood Culture Sta t Lab 07/17/21 16:37 Results Body Fluid Cultur e & GS Routine Lab 07/17/21 12:00 Results Labs from last 24 hours 07/19/21 07/19/21 03:11 03:11 WBC 9.5 RBC 2.87 L Hgb 8.2 L Hct 27.6 L MCV 96.2 MCH 28.6 MCHC 29.7 L RDW 14.4 Plt Count 137 MPV 11.1 H Neut % (Auto) 76.1 Lymph % (Auto) 15.4 [place] % (Auto) 6.4 Eos % (Auto) 1.3 Baso % (Auto) 0.3 Neut # (Auto) 7.24 Lymph # (Auto) 1.5 [place] # (Auto) 0.6 Eos # (Auto) 0.1 Baso # (Auto) 0.0 Nucleated RBC % (a uto) 0 Nucleated RBCs # 0.0 Sodium 135 L Potassium 3.8 Chloride 102 Carbon Dioxide 27 Anion Gap 9.8 BUN 18 Creatinine 1.1 H GFR Calculation 49.7 L Glucose 123 H Calculated Osmolal ity 283 L Calcium 7.6 L Body Fluid Culture Preliminary 07/19/21-1017 Organism 1 CITROBACTER FREUNDII COMPLEX Growth HEAVY Organism 2 Klebsiella pneumoniae Growth HEAVY DAY 2 CITR FRECO Destiny pneum M.I.C. RX M.I.C. RX --------- ------ --------- ------ * Amikacin <=16 S <=16 S * Amoxicillin/Clavulanate >16/8 R <=8/4 S * Ampicillin >16 R >16 R * Ampicillin/Sulbactam >16/8 R <=8/4 S * Aztreonam 16 I <=4 S * Cefepime <=8 S <=8 S * Ceftriaxone 32 R <=1 S * Cefuroxime >16 R <=4 S * Ciprofloxacin <=1 S <=1 S * Gentamicin <=2 S <=2 S * Imipenem 2 I <=1 S * Levofloxacin <=2 S <=2 S * Tetracycline <=4 S <=4 S * Trimethoprim/Sulfamethoxazole <=2/38 S <=2/38 S * Piperacillin/Tazobactam <=16 S <=16 S Vitals: Last Vital Signs Temp 98.8 F 07/19/21 07:23 Pulse 65 07/19/21 07:46 Resp 16 07/19/21 07:46 BP 126/73 07/19/21 07:23 Pulse Ox 95 07/19/21 07:46 Discharge Plan Discharge Patient Disposition: Home Condition: Stable Prescriptions: New hydrocodone-acetaminophen 5-325 mg tablet 1 - 2 tab PO Q5H PRN (Reason: pain) Qty: 30 RF: 0 sulfamethoxazole-trimethoprim [Bactrim DS] 800-160 mg tablet 1 tab PO DAILY 10 Days Qty: 20 RF: 0 Continued allopurinol 300 mg tablet 300 mg PO QAM RF: 0 fluticasone propionate 50 mcg/actuation spray,suspension 1 - 2 spray INTRANASAL DAILY PRN (Reason: Allergy Symptoms) RF: 0 furosemide 20 mg tablet 20 mg PO QAM RF: 0 glimepiride 2 mg tablet 2 mg PO BID RF: 0 lisinopril 40 mg tablet 40 mg PO DAILY RF: 0 meclizine 25 mg tablet 25 mg PO QID PRN (Reason: Nausea) RF: 0 meloxicam 7.5 mg tablet 7.5 mg PO DAILY RF: 0 metformin 850 mg tablet See Rx Instructions .ROUTE .COMPLEX RF: 0 omeprazole 20 mg capsule,delayed release(DR/EC) 20 mg PO QAM RF: 0 simvastatin 20 mg tablet 20 mg PO BEDTIME RF: 0 tramadol 50 mg tablet 50 mg PO QID PRN (Reason: Pain) RF: 0 hydrochlorothiazide 25 mg tablet 25 mg PO DAILY RF: 0 triamcinolone acetonide 0.1 % cream 1 applic TOPICAL BID PRN (Reason: unknown) RF: 0 propranolol 40 mg tablet 40 mg PO BID RF: 0 multivitamin Tablet 1 tab PO DAILY RF: 0 Vitamin C 1,000 mg Tablet 1,000 mg PO DAILY RF: 0 venlafaxine 150 mg capsule,extended release 24hr 150 mg PO QAM RF: 0 Ventolin HFA 90 mcg/actuation Hfa Aerosol Inhaler 2 puff INHALATION Q4H PRN (Reason: Shortness Of Breath) RF: 0 Discharge Orders: Discharge Order (Routine); Ordered 07/19/21 Ordered By: Vadim Calderón Referrals: Vadim Calderón MD [Physician] - 4-7 days (Nursing: Please call Dr. Calderón's office ([phone]) and make an appointment for the patient to be seen next week (Friday or Friday).) Chato Palma MD [Primary Care Provider] - Discharge Diet: Advance as tolerated Discharge Activity: Limit activity as instructed Patient Instructions: Opioid Safety Activity Restrictions/Additional Instructions: 1. Discharge to home today. Nursing: Please teach patient how to empty Aries drain and reconstitute bulb. 2. Appointment to see Dr. Calderón next week as above. 3. Leave Steri-Strip(s) on at home, may shower. Empty Aries drain as needed and discussed. 4. Celeste 5/325 1-2 tablets by mouth every 5 hours as needed for pain. #30, no refills. 5. Bactrim DS 1 p.o. twice daily until gone. #20, no refills. Discharge Attestations Time Spent in Discharge Care*: less than 30 min Quality Metrics Clinical Quality Measures During this hospital stay, did patient experience: None Coding Level of Care Code Acute g [facility] note Diagnoses Acute cholecystitis K81.0 Asthma J45.909 Diabetes E11.9 Hypertension I10 GERD (gastroesophageal reflux disease) K21.9
== END 2021-07-19 11:38 | disposition home or self-care (01) | DRG 418 ==
LOC: ER 20:06 → MEDSURG 23:35
PROVIDERS: Internal Medicine; Nurse Practitioner Family; Admitting Provider Surgery; Emergency Provider Emergency Medicine; PCP Family Medicine; Visit Provider Surgery
PROC: 0FT44ZZ Resection of Gallbladder, Percutaneous Endoscopic Approach (ICD-10-PCS; CPT 47562; principal; 2021-07-17 11:30)
DX: K80.00 Calculus of gallbladder with acute cholecystitis without obstruction (principal); Z68.41 Body mass index [BMI] 40.0-44.9, adult; K82.A1 Gangrene of gallbladder in cholecystitis; E66.9 Obesity, unspecified; D64.9 Anemia, unspecified; J45.909 Unspecified asthma, uncomplicated; F32.A Depression, unspecified; E11.9 Type 2 diabetes mellitus without complications; K21.9 Gastro-esophageal reflux disease without esophagitis; M10.9 Gout, unspecified; E78.5 Hyperlipidemia, unspecified; I10 Essential (primary) hypertension; Z96.653 Presence of artificial knee joint, bilateral; Z79.84 Long term (current) use of oral hypoglycemic drugs
CPT/HCPCS: 36415; 74177; 80048; 80053; 81003; 83690; 85025; 85610; 85730; 87040; 87070; 87075; 87077; 87186; 87205; 88304; 94640; 96365; 96372; 96374; 97161; 97530; 99285; J0330; J0690; J1100; J1170; J1644; J2405; J2543; J2704; J2710; J3010; J3490; J7030; J7040; J7614; Q9967; S0030

== ENCOUNTER → 2022-02-27 11:12 | Outpatient (BNVA) | payer MEDICARE, SELFPAY | PROVIDERS: PCP Family Medicine; Visit Provider Family Medicine | DX: M19.90 Unspecified osteoarthritis, unspecified site (principal); E11.8 Type 2 diabetes mellitus with unspecified complications; I10 Essential (primary) hypertension; E78.5 Hyperlipidemia, unspecified | CPT/HCPCS: 80053; 80061; 83036; 85025 ==

== ENCOUNTER → 2022-04-09 13:54 | Outpatient (BNVA) | payer MEDICARE, SELFPAY | PROVIDERS: PCP Family Medicine; Visit Provider Surgery | DX: K43.2 Incisional hernia without obstruction or gangrene (principal); M62.08 Separation of muscle (nontraumatic), other site | CPT/HCPCS: 99204 ==

== ENCOUNTER 2022-04-18 09:41 | Day surgery (SDC) | payer MEDICARE, SELFPAY ==
[2022-04-16 13:30] VITALS: BMI 40.8
[2022-04-18] VITALS (16 sets, daily range): BP systolic 133–181; BP diastolic 72–92; PULSE 57–68; RESP 10–18; TEMP 36.5–36.9; O2SAT 92–99
--- NOTE | 2022-04-18 10:00 | P.HP_ITS ---
Same Day Surgery H&P Indication for Procedure/HPI DATE OF PROCEDURE: April 18, 2022 CHIEF COMPLAINT/INDICATIONFOR SURGICAL PROCEDURE: lap umbilical hernia repair PREOP DIAGNOSIS: umbilical hernia PLANNED PROCEDURE: Operation Date: 04/18/22 11:20 Proposed Procedures p UMBILICAL HERNIA REPAIR LAPARASCOPIC WITH MESH OPEN 97652,K42.9(Not Applicable) - Anthony Mosher MD Medications/Allergies* Home Medications Medication Instructions Recorded Confirmed Type albuterol sulfate 90 mcg/actuation 2 puff inhalation Q4H PRN 07/17/21 04/16/22 History aerosol inhaler (Ventolin HFA) Shortness Of Breath allopurinol 300 mg tablet 300 mg PO QAM 07/17/21 04/16/22 History ascorbic acid (vitamin C) 1,000 mg 1,000 mg PO DAILY 07/17/21 04/16/22 History tablet (Vitamin C) fluticasone propionate 50 1 - 2 spray intranasal DAILY PRN 07/17/21 04/16/22 History mcg/actuation nasal Allergy Symptoms spray,suspension furosemide 20 mg tablet 20 mg PO QAM 07/17/21 04/16/22 History glimepiride 2 mg tablet 2 mg PO BID 07/17/21 04/16/22 History hydrochlorothiazide 25 mg tablet 25 mg PO DAILY 07/17/21 04/16/22 History lisinopril 40 mg tablet 40 mg PO DAILY 07/17/21 04/16/22 History meclizine 25 mg tablet 25 mg PO QID PRN Nausea 07/17/21 04/16/22 History metformin 850 mg tablet See Rx Instructions .Route .COMPLEX 07/17/21 04/16/22 History multivitamin 1 tab PO DAILY 07/17/21 04/16/22 History omeprazole 20 mg capsule,delayed 20 mg PO QAM 07/17/21 04/16/22 History release propranolol 40 mg tablet 40 mg PO BID 07/17/21 04/18/22 History simvastatin 20 mg tablet 20 mg PO BEDTIME 07/17/21 04/16/22 History tramadol 50 mg tablet 50 mg PO QID PRN Pain 07/17/21 04/16/22 History triamcinolone acetonide 0.1 % 1 applic topical BID PRN unknown 07/17/21 04/16/22 History topical cream venlafaxine 150 mg 150 mg PO QAM 07/17/21 04/16/22 History capsule,extended release 24 hr cetirizine 10 mg tablet (Allergy 10 mg PO DAILY PRN Allergy Symptoms 04/09/22 04/16/22 History Relief (cetirizine)) meloxicam 7.5 mg tablet 7.5 mg PO DAILY PRN Pain 04/09/22 04/16/22 History ondansetron HCl 8 mg tablet 8 mg PO Q8H PRN Nausea And Vomiting 04/09/22 04/16/22 History ferrous sulfate 325 mg (65 mg 325 mg PO DAILY 04/16/22 04/16/22 History iron) tablet (iron) Allergies/Adverse Reactions Allergy/AdvReac Type Severity Reaction Status Date / Time morphine Allergy ALGY-formic Verified 04/16/22 13:17 ation ofloxacin [From Floxin] Allergy ADR-Anxiety Verified 04/16/22 13:17 red dye Allergy vomit Verified 04/16/22 13:17 Pertinent History/Comorbid Conditions* Medical History (Updated 07/20/21 @ 00:01 by ) Anemia Arthritis Asthma Cervical disc disease Depression Diabetes GERD (gastroesophageal reflux disease) / Hiatal hernia Gout Hyperlipidemia Hypertension Surgical History (Updated 04/09/22 @ 16:23 by Anthony Mosher MD) Elbow dislocation Right History of bilateral salpingo-oophorectomy (BSO) History of carpal tunnel release Right History of esophagogastroduodenoscopy (EGD) History of hysterectomy Hx of cholecystectomy Hx of colonoscopy 2018 or 2019 Status post bilateral knee replacements Social History Smoking and tobacco status: never smoked Alcohol intake: never Pertinent Exam Findings alert, oriented x 3 and regular rate & rhythm Recommendations Surgery/Procedure today Coding Level of Care Code Acute Mental Health Aide for Chg [place]
[2022-04-18] MEDS: sodium chloride 0.9% 1,000 ML 30 ML IV (10:09)
[2022-04-18 10:24] LABS: Glucose Point of Care 169 mg/dL (70-110)
--- NOTE | 2022-04-18 10:28 | ANES.PREANE2 ---
Pre-Anesthetic Assessment Height/Weight: Height 1.7 m Weight 118.388 kg Temp Pulse Resp BP Pulse Ox O2 Del Method 98.5 F 68 16 151/77 97 04/18/22 10:07 04/18/22 10:07 04/18/22 10:07 04/18/22 10:07 04/18/22 10:07 04/18/22 10:07 Preop Diagnosis: umbilical hernia Operation Date: 04/18/22 11:20 Proposed Procedures p UMBILICAL HERNIA REPAIR LAPARASCOPIC WITH MESH OPEN 08977,K42.9(Not Applicable) - Anthony Mosher MD Familial anesthetic complications: NMB Wasn't adequately reversed with previous knee surgery - couldn't breath with extubation and required Neostigmine after extubation on OR table Was Beta Leo taken within 24 hours: Yes Was Clonidine taken within 24 hours: N/A Last intake: Intake Last Liquid Date 04/17/22 Last Liquid Time 18:30 Last Solid Date 04/17/22 Last Solid Time 18:00 Social No alcohol and No tobacco Exam alert, oriented x 3, clear to auscultation bilaterally and regular rate & rhythm Airway Mallampati: Class II Dentition: full Pulmonary Asthma CV/HEM Anemia and Hypertension GI Gastroesophageal Reflux Disease hiatal hernia Metabolic Diabetes Mellitus and Morbid Obesity Anesthetic Plan ASA status: 3 Anesthesia: General Risk of > 500 ml blood loss (7ml/kg in children): No Medications/Allergies Home Medications Medication Instructions Recorded Confirmed Last Taken Type albuterol sulfate 90 mcg/actuation 2 puff inhalation Q4H PRN 07/17/21 04/16/22 Unknown History aerosol inhaler (Ventolin HFA) Shortness Of Breath allopurinol 300 mg tablet 300 mg PO QAM 07/17/21 04/16/22 Unknown History ascorbic acid (vitamin C) 1,000 mg 1,000 mg PO DAILY 07/17/21 04/16/22 Unknown History tablet (Vitamin C) fluticasone propionate 50 1 - 2 spray intranasal DAILY PRN 07/17/21 04/16/22 Unknown History mcg/actuation nasal Allergy Symptoms spray,suspension furosemide 20 mg tablet 20 mg PO QAM 07/17/21 04/16/22 Unknown History glimepiride 2 mg tablet 2 mg PO BID 07/17/21 04/16/22 Unknown History hydrochlorothiazide 25 mg tablet 25 mg PO DAILY 07/17/21 04/16/22 Unknown History lisinopril 40 mg tablet 40 mg PO DAILY 07/17/21 04/16/22 Unknown History meclizine 25 mg tablet 25 mg PO QID PRN Nausea 07/17/21 04/16/22 Unknown History metformin 850 mg tablet See Rx Instructions .Route .COMPLEX 07/17/21 04/16/22 Unknown History multivitamin 1 tab PO DAILY 07/17/21 04/16/22 Unknown History omeprazole 20 mg capsule,delayed 20 mg PO QAM 07/17/21 04/16/22 Unknown History release propranolol 40 mg tablet 40 mg PO BID 07/17/21 04/18/22 04/18/22 06:30 History simvastatin 20 mg tablet 20 mg PO BEDTIME 07/17/21 04/16/22 Unknown History tramadol 50 mg tablet 50 mg PO QID PRN Pain 07/17/21 04/16/22 Unknown History triamcinolone acetonide 0.1 % 1 applic topical BID PRN unknown 07/17/21 04/16/22 Unknown History topical cream venlafaxine 150 mg 150 mg PO QAM 07/17/21 04/16/22 Unknown History capsule,extended release 24 hr hydrocodone 5 mg-acetaminophen 325 1 - 2 tab PO Q5H PRN pain #30 tabs 07/19/21 04/16/22 Unknown Rx mg tablet cetirizine 10 mg tablet (Allergy 10 mg PO DAILY PRN Allergy Symptoms 04/09/22 04/16/22 Unknown History Relief (cetirizine)) meloxicam 7.5 mg tablet 7.5 mg PO DAILY PRN Pain 04/09/22 04/16/22 Unknown History ondansetron HCl 8 mg tablet 8 mg PO Q8H PRN Nausea And Vomiting 04/09/22 04/16/22 Unknown History ferrous sulfate 325 mg (65 mg 325 mg PO DAILY 04/16/22 04/16/22 Unknown History iron) tablet (iron) oxycodone-acetaminophen 5 mg-325 1 tab PO Q6H PRN pain #20 tabs 04/18/22 Unknown Rx mg tablet (Percocet) Allergies Allergy/AdvReac Type Severity Reaction Status Date / Time morphine Allergy ALGY-formic Verified 04/16/22 13:17 ation ofloxacin [From Floxin] Allergy ADR-Anxiety Verified 04/16/22 13:17 red dye Allergy vomit Verified 04/16/22 13:17 Current Medications Generic Name Dose Route Start Last Admin Trade Name Piedad PRN Reason Stop Dose Admin Sodium Chloride 1,000 mls @ 30 mls/hr 04/18/22 10:00 04/18/22 10:09 Sodium Chloride 0.9% IV 04/19/22 09:59 30 mls/hr .Q24H AKIN Administration PFSH Anesthesia Medical History Anemia Arthritis Asthma Cervical disc disease Depression Diabetes GERD (gastroesophageal reflux disease) / Hiatal hernia Gout Hyperlipidemia Hypertension Surgical History (Updated 04/18/22 @ 10:05 by Anthony Mosher MD) Elbow dislocation Right History of bilateral salpingo-oophorectomy (BSO) History of carpal tunnel release Right History of esophagogastroduodenoscopy (EGD) History of hysterectomy History of umbilical hernia repair (04/18/22) Hx of cholecystectomy Hx of colonoscopy 2018 or 2019 Status post bilateral knee replacements Social History Smoking and tobacco status: never smoked Alcohol intake: never Female Reproductive History Date of last menstrual period: 12/14/20 Data Anesthesia Cardiac Studies: No Data to Display
[2022-04-18] MEDS: ceFAZolin 2,000 MG in sodium chloride 0.9% (plus) 50 ML 100 MG IV (10:41)
[2022-04-18 11:10] LABS: Blood Urea Nitrogen 23 mg/dL (8-23); Calcium 9.5 mg/dL (8.5-10.5); Carbon Dioxide 29 mmol/L (22-29); Chloride 99 mmol/L (98-107); Glomerular Filtration Rate 62.5 mL/min (90-130); Glucose 158 mg/dL (65-115); Osmolality Calculated 297 mOsm/kg (285-295); Sodium 140 mmol/L (136-145)
[2022-04-18 11:16] LABS: Anion Gap 16.3 (5-19); Potassium 4.3 mmol/L (3.5-5.1)
--- NOTE | 2022-04-18 11:53 | PM.OP ---
Operative Report Date of procedure: April 18, 2022 Pre-op diagnosis: Symptomatic incisional hernia Post-op diagnosis: Incisional hernia measuring 7 x 5 cm Procedure done: Laparoscopic repair of incisional hernia with Ventralight ST mesh measuring 15 x 15 cm Pathology: none sent Surgeon: Anthony Mosher Anesthesia: General Condition: stable Disposition: PACU Procedure: The patient was taken to the Operating Room and was intubated under general anesthesia after the antibiotic had been administered. The abdomen was prepped and draped in a sterile manner. Using a 15 blade, a 2-cm incision was made in the left upper quadrant in the anterior axillary line and pneumoperitoneum was created using Verres needle. A 10 mm Lucia port was placed and 15 mm of pneumoperitoneum was created after a 10 mm 30? scope had been introduced. 5 mm port was placed at the level of the umbilicus under direct visualization. Using a combination of electrocautery and scissors the peritoneum in the midline was taken down and the omental fat within the hernial sac was reduced. A spinal needle was introduced through the abdominal wall and the edges of the hernial defect were marked and measured 7x5 cm. A 4 cm margin was marked on the abdominal wall on the outer edge of the hernial defect. 15 x [address] mesh was selected and 4 separate 2-0 [place] sutures were placed at the 4 corners of the mesh. Grannie needle was passed through the stab incisions and used to grasp the free ends of the [place]isai sutures which were used to pull the mesh up against the abdominal wall; 5 mm SecurStraps were placed 1 cm apart along the edge of the mesh to hold it against the abdominal wall. At the end of this, it was noted that the mesh was well positioned over the hernial defect. 20 cc of saline mixed with 20cc of Exparel mixed with 20cc of 0.25% Marcaine was infiltrated in the midclavicular line bilaterally under laparoscopic visualization for a TAP block. All ports were removed under direct visualization and there was no bleeding noted from the port sites. The external oblique aponeurosis was approximated at LUQ port site using figure of eight 0 Vicryl suture. The subcutaneous tissue was approximated using 3-0 Vicryl sutures. The skin at port site was closed using subcuticular 4-0 Monocryl suture. The stab incisions and the port sites were covered with Dermabond. Abdominal binder was placed at the end of the procedure and the patient was extubated and transferred to recovery room in stable condition.
[2022-04-18] MEDS: fentaNYL 50 mcg/mL INJ 2mL IVP (12:10)
--- NOTE | 2022-04-18 12:55 | ANE.PACU2 ---
Inpatient post-anesthesia follow up: Airway intact: Yes Vital signs: Temperature 97.7 F Pulse Rate 59 Respiratory Rate 16 Blood Pressure 159/82 Pulse Oximetry 92 Oxygen Delivery Me thod Room Air Oxygen Flow Rate Fraction of Inspir ed Oxygen Hydration adequate: Yes Nausea and vomiting: No Pain level: 1 Mental status: Baseline
[2022-04-18] MEDS: oxyCODONE-APAP 5-325 mg Tablet 1 TAB PO (13:17)
== END 2022-04-18 13:40 | disposition home or self-care (01) ==
PROVIDERS: Anesthesiology; PCP Family Medicine; Visit Provider Surgery
PROC: 0WQF4ZZ Repair Abdominal Wall, Percutaneous Endoscopic Approach (ICD-10-PCS; CPT 49654; principal; 2022-04-18 11:20)
DX: K43.2 Incisional hernia without obstruction or gangrene (principal); M19.90 Unspecified osteoarthritis, unspecified site; F32.A Depression, unspecified; E11.9 Type 2 diabetes mellitus without complications; Z79.84 Long term (current) use of oral hypoglycemic drugs; K21.9 Gastro-esophageal reflux disease without esophagitis; E78.5 Hyperlipidemia, unspecified
CPT/HCPCS: 49654; 36416; 80048; 82962; C1781; J1100; J2250; J2405; J2704; J2710; J3010; J3490; J7030

== ENCOUNTER → 2022-04-30 09:00 | Outpatient (BNVA) | payer MEDICARE, SELFPAY | PROVIDERS: PCP Family Medicine; Visit Provider Surgery | DX: Z98.890 Other specified postprocedural states (principal); Z87.19 Personal history of other diseases of the digestive system | CPT/HCPCS: 99024 ==

== ENCOUNTER → 2022-09-03 08:44 | Outpatient (BNVA) | payer MEDICARE, SELFPAY | PROVIDERS: PCP Family Medicine; Visit Provider Family Medicine | DX: E11.9 Type 2 diabetes mellitus without complications (principal); E78.5 Hyperlipidemia, unspecified | CPT/HCPCS: 80053; 80061; 83036; 85025 ==

== ENCOUNTER 2023-02-04 07:30 | Observation (INO) | payer MEDICARE, SELFPAY ==
[2023-02-04] VITALS (10 sets, daily range): BP systolic 107–138; BP diastolic 47–95; PULSE 55–140; RESP 14–18; TEMP 36.5–36.9; O2SAT 90–95; BMI 43.2; BMI 45.1
--- NOTE | 2023-02-04 07:32 | XRR_ITS ---
PROCEDURE INFORMATION: Exam: XR Chest Exam date and time: 02/04/2023 8:23 AM Age: 67 years old Clinical indication: Shortness of breath; Additional info: SOB TECHNIQUE: Imaging protocol: Radiologic exam of the chest. Views: 1 view. COMPARISON: CR XR chest 1V [id number] 04/23/2018 8:12 AM FINDINGS: Lungs: Lungs are clear. Pleural spaces: There is no pleural effusion or pneumothorax. Heart/Mediastinum: The cardiac silhouette is within normal limits of size given AP technique. Bones/joints: Bones are unremarkable. XR/XR chest 1V portable [id number] IMPRESSION: No acute findings.
--- NOTE | 2023-02-04 07:40 | W.ED.ARRPALP ---
Documented by User: JEF Pearl 02/04/23 09:32 HPI - Arrhythmia/Palpitations General: Chief Complaint: Arrhythmia/Palpitations Stated Complaint: sob, irregular hr and bp Time Seen by Provider: 02/04/23 07:31 Source: patient and family Mode of arrival: ambulatory Limitations: no limitations History of Present Illness: Patient is a 67-year-old female who presents to ED today along with her for evaluation of feeling like her heart is racing and palpitations intermittently over the past 2 weeks or so. In addition she states her blood pressure has been very elevated. She states she does have a history of hypertension and normally takes HCTZ and propranolol however states recently her blood pressure was bottoming out so discontinued these medications. She states over the past 1 to 2 weeks she has noticed systolics as high as 290s. states she has been complaining of some chest pains at home. She complains of some mild shortness of breath that she attributes to pollen and allergies as well as her history of asthma. MD complaint: rapid heart beat, heart racing , skipped beats , palpitations and irregular heart beat Onset (ago): week(s) Duration: intermittent Severity: moderate Associated symptoms: Reports no associated symptoms; Deny nausea, syncope or vomiting Review of Systems Const: Denies: fever(s), chills, body aches, fatigue or malaise Eyes: Denies: change in vision or blurry vision Card: Reports: chest pain, palpitations and irregular heart rhythm; Denies: edema, lightheadedness, syncope, dyspnea on exertion or orthopnea Resp: Reports: dyspnea and non-productive cough; Denies: productive cough, wheezing, pain on inspiration or hemoptysis GI: Denies: abdominal pain, nausea, vomiting, heartburn or diarrhea : Denies: flank pain or dysuria Musc: Denies: neck pain, back pain, extremity pain, extremity swelling or joint pain Skin/Breast: Denies: rash Neuro: Reports: dizziness; Denies: headache(s), numbness in extremities, weakness in extremities or sensory changes PFS ED PFSH: Medical History Anemia Arthritis Asthma Cervical disc disease Depression Diabetes GERD (gastroesophageal reflux disease) / Hiatal hernia Gout Hyperlipidemia Hypertension Surgical History Elbow dislocation Right History of bilateral salpingo-oophorectomy (BSO) History of carpal tunnel release Right History of esophagogastroduodenoscopy (EGD) History of hysterectomy History of umbilical hernia repair (04/18/22) Hx of cholecystectomy Hx of colonoscopy 2018 or 2019 Status post bilateral knee replacements Family History Other Cancer Diabetes Social History Smoking and tobacco status: never smoked Alcohol intake: never Physical Exam Const: COMMON NORMALS: no acute distress, patient oriented x3, no limitations, alert and well nourished GENERAL APPEARANCE: cooperative NUTRITIONAL APPEARANCE: obese (BMI over 43) morbidly obese ORIENTATION/CONSCIOUSNESS: Yes awake, Yes oriented to person, Yes oriented to place and Yes oriented to time HENMT: COMMON NORMALS: normocephalic and atraumatic HEAD & SCALP: normal to inspection, normocephalic and atraumatic Neck/C-Spine: COMMON NORMALS: full ROM, no lymphadenopathy, supple and no meningeal signs Chest: COMMONS NORMALS: normal inspection of the chest Resp: COMMON NORMALS: normal respiratory effort and clear to auscultation bilaterally AUSCULTATION: clear to auscultation bilaterally Cardio: RATE: tachycardic RHYTHM: abnormal rhythm irregularly irregular Extremity: COMMON NORMALS: normal to inspection, full ROM, capillary refill normal, no joint enlargement and no calf tenderness NARRATIVE EXTREMITY EXAM: bilateral symmetrical LE non-pitting edema GENERAL: Yes normal exam except as noted Neuro: DIMA COMA SCALE: document GCS findings [place] coma scale eye opening: Spontaneous Dima coma scale verbal response: Orientated [place] coma scale motor response: Obey commands Dima coma scale total score: 15 COMMON NORMALS: patient oriented x3, moves all extremities, no focal motor deficits and no sensory deficits noted SENSORIUM/ORIENTATION: Yes alert, Yes oriented to person, Yes oriented to place and Yes oriented to time MENINGEAL SIGNS: Yes no meningeal signs Skin: COMMON NORMALS: no rashes or lesions noted GENERAL SKIN EXAM: no rashes or lesions noted Course Vital Signs: Vital signs: Vital Signs Temperature 98.4 F 02/04/23 07:35 Pulse Rate 60 02/04/23 10:42 Respiratory Rate 16 02/04/23 10:42 Blood Pressure 107/62 02/04/23 10:42 Pulse Oximetry 95 02/04/23 10:42 Oxygen Delivery Me thod Nasal Cannula 02/04/23 10:42 Oxygen Flow Rate 2 02/04/23 10:42 MDM - Arrhythmia/Palpitations Medical Decision Making Patient is a 67-year-old female here with new onset A-fib with RVR. She has required multiple bolus doses of Cardizem as well as a drip to control her rate. She will be admitted to hospital service for further evaluation and treatment. Dr. Muhammad has also seen and evaluated patient and will speak to hospitalist for admission. Lab Data 02/04/23 07:46 02/04/23 07:46 Radiology Impressions Chest X-Ray 02/04/23 07:32 IMPRESSION: No acute findings. Laboratory Results WBC 7.7 10^3/uL (4.0-10.0) 02/04/23 07:46 RBC 4.15 10^6/uL (4.1-5.3) 02/04/23 07:46 Hgb 12.2 g/dL (11.5-15.3) 02/04/23 07:46 Hct 38.3 % (37.0-47.0) 02/04/23 07:46 MCV 92.3 fl (81-99) 02/04/23 07:46 MCH 29.4 pg (28.0-34.0) 02/04/23 07:46 MCHC 31.9 g/dL (30.0-36.0) 02/04/23 07:46 RDW 13.5 % (12.1-15.1) 02/04/23 07:46 Plt Count 233 10^3/cmm (130-400) 02/04/23 07:46 MPV 10.9 fL (7.4-10.4) H 02/04/23 07:46 Neut % (Auto) 72.7 % 02/04/23 07:46 Lymph % (Auto) 18.5 % 02/04/23 07:46 Barren % (Auto) 6.9 % 02/04/23 07:46 Eos % (Auto) 1.0 % 02/04/23 07:46 Baso % (Auto) 0.5 % 02/04/23 07:46 Neut # (Auto) 5.56 10^3/uL (1.8-7.7) 02/04/23 07:46 Lymph # (Auto) 1.4 10^3/uL (0.8-4.8) 02/04/23 07:46 Barren # (Auto) 0.5 10^3/uL (0.2-0.9) 02/04/23 07:46 Eos # (Auto) 0.1 10^3/uL (0.0-0.8) 02/04/23 07:46 Baso # (Auto) 0.0 10^3/uL (0.0-0.1) 02/04/23 07:46 Nucleated RBC % (auto) 0 % 02/04/23 07:46 Nucleated RBCs # 0.0 /100WBC 02/04/23 07:46 Sodium 137 mmol/L (136-145) 02/04/23 07:46 Potassium 4.1 mmol/L (3.5-5.1) 02/04/23 07:46 Chloride 96 mmol/L (98-107) L 02/04/23 07:46 Carbon Dioxide 26 mmol/L (22-29) 02/04/23 07:46 Anion Gap 19.1 (5-19) H 02/04/23 07:46 BUN 16 mg/dL (8-23) 02/04/23 07:46 Creatinine 0.9 mg/dL (0.5-0.9) 02/04/23 07:46 GFR Calculation 62.3 mL/min (90-130) L 02/04/23 07:46 Glucose 247 mg/dL (65-115) H 02/04/23 07:46 Calculated Osmolality 293 mOsm/kg (285-295) 02/04/23 07:46 Calcium 9.4 mg/dL (8.5-10.5) 02/04/23 07:46 Magnesium 1.1 mg/dL (1.7-2.3) L 02/04/23 07:46 Total Bilirubin 0.3 mg/dL (0.15-1.2) 02/04/23 07:46 AST 22 U/L (0-32) 02/04/23 07:46 ALT 21 U/L (0-33) 02/04/23 07:46 Alkaline Phosphatase 112 U/L (35-105) H 02/04/23 07:46 Troponin T Baseline 14 ng/L (0-10) H 02/04/23 07:46 Troponin T 120 Minute 16.28 ng/L (0-10) H 02/04/23 09:56 Delta Troponin T 2.28 ABS# (0-10) 02/04/23 09:56 NT-Pro-B Natriuret Pep 256 pg/mL (0-125) H 02/04/23 07:46 Total Protein 6.3 g/dL (6.6-8.7) L 02/04/23 07:46 Albumin 4.1 g/dL (3.5-5.2) 02/04/23 07:46 Globulin 2.2 g/dL (1.3-4.6) 02/04/23 07:46 TSH 4.77 uIU/mL (0.27-4.20) H 02/04/23 07:46 Discharge Plan Discharge Patient Disposition: Admitted As Inpatient Clinical Impression: New onset atrial fibrillation, Atrial fibrillation with RVR Condition: Stable Coding Level of Care Code ED Construction Engineer for Chg Fwd Documented by User: Kevin Muhammad DO 02/04/23 11:33 HPI - Arrhythmia/Palpitations General: Chief Complaint: Arrhythmia/Palpitations Stated Complaint: sob, irregular hr and bp Time Seen by Provider: 02/04/23 07:31 History of Present Illness: Patient is a 67-year-old female who presents to ED today along with her for evaluation of feeling like her heart is racing and palpitations intermittently over the past 2 weeks or so. In addition she states her blood pressure has been very elevated. She states she does have a history of hypertension and normally takes HCTZ and propranolol however states recently her blood pressure was bottoming out so discontinued these medications. She states over the past 1 to 2 weeks she has noticed systolics as high as 290s. states she has been complaining of some chest pains at home. She complains of some mild shortness of breath that she attributes to pollen and allergies as well as her history of asthma. Patient seen and evaluated reviewed Lidia Galindo's notes. Patient denies any chest pain she is intermittently had palpitations for the last couple of weeks. Is worse overnight. She did take her medications this morning particularly her propranolol. She has noted accelerated hypertension last few weeks with reporting blood pressures in the high 200s in the systolic range. She is complaining of little bit of shortness of breath now but no chest pain at this time she has had some chest pain at home. She is not previously been known to have atrial fibrillation. [facility] ED PFSH: Medical History Anemia Arthritis Asthma Cervical disc disease Depression Diabetes GERD (gastroesophageal reflux disease) / Hiatal hernia Gout Hyperlipidemia Hypertension Surgical History Elbow dislocation Right History of bilateral salpingo-oophorectomy (BSO) History of carpal tunnel release Right History of esophagogastroduodenoscopy (EGD) History of hysterectomy History of umbilical hernia repair (04/18/22) Hx of cholecystectomy Hx of colonoscopy 2018 or 2019 Status post bilateral knee replacements Family History Other Cancer Diabetes Social History Smoking and tobacco status: never smoked Alcohol intake: never Physical Exam Const: GENERAL APPEARANCE: cooperative and comfortable ORIENTATION/CONSCIOUSNESS: Yes awake, Yes oriented to person, Yes oriented to place and Yes oriented to time HENMT: COMMON NORMALS: normocephalic, atraumatic and hearing grossly normal bilaterally HEAD & SCALP: normocephalic and atraumatic Resp: COMMON NORMALS: normal respiratory effort, No retractions, No use of accessory muscles and clear to auscultation bilaterally AUSCULTATION: clear to auscultation bilaterally Cardio: COMMON NORMALS: No murmurs present (Cardio) RATE: tachycardic RHYTHM: abnormal rhythm irregularly irregular GI: COMMON NORMALS: Soft to palpation and No hepatosplenomegaly present AUSCULTATION: Yes normoactive bowel sounds PALPATION: Yes Soft to palpation, No Tenderness to palpation present (GI), No Guarding due to palpation present (GI) and Yes No hepatosplenomegaly present Extremity: COMMON NORMALS: normal to inspection, capillary refill normal, no clubbing, cyanosis or edema, no calf tenderness and no pedal edema Neuro: SENSORIUM/ORIENTATION: Yes oriented to person, Yes oriented to place and Yes oriented to time Skin: COMMON NORMALS: no rashes or lesions noted GENERAL SKIN EXAM: no rashes or lesions noted Course Vital Signs: Vital signs: Vital Signs Temperature 98.4 F 02/04/23 07:35 Pulse Rate 60 02/04/23 10:42 Respiratory Rate 16 02/04/23 10:42 Blood Pressure 107/62 02/04/23 10:42 Pulse Oximetry 95 02/04/23 10:42 Oxygen Delivery Me thod Nasal Cannula 02/04/23 10:42 Oxygen Flow Rate 2 02/04/23 10:42 MDM - Arrhythmia/Palpitations Medical Decision Making Patient is a 67-year-old female here with new onset A-fib with RVR. She has required multiple bolus doses of Cardizem as well as a drip to control her rate. She will be admitted to hospital service for further evaluation and treatment. Dr. Muhammad has also seen and evaluated patient and will speak to hospitalist for admission. Care assumed from Lidia Galindo. Patient seen and evaluated Lidia Galindo's notes reviewed. Patient in A-fib with RVR. She initially given Cardizem bolus there is a delay for the drip to start. We titrated up to 10 she had no improvement so we stopped the drip rebolused her and restarted the drip at 10. Shortly after this she converted and has been stable since were able to titrate the drip off. This atrial fibrillation is new onset for her we will admit her discussed with hospitalist orders are have been written. Medical Records I reviewed the patient's medical records. Lab Data I reviewed the patient's lab results. 02/04/23 07:46 02/04/23 07:46 Radiology Impressions Chest X-Ray 02/04/23 07:32 IMPRESSION: No acute findings. Laboratory Results WBC 7.7 10^3/uL (4.0-10.0) 02/04/23 07:46 RBC 4.15 10^6/uL (4.1-5.3) 02/04/23 07:46 Hgb 12.2 g/dL (11.5-15.3) 02/04/23 07:46 Hct 38.3 % (37.0-47.0) 02/04/23 07:46 MCV 92.3 fl (81-99) 02/04/23 07:46 MCH 29.4 pg (28.0-34.0) 02/04/23 07:46 MCHC 31.9 g/dL (30.0-36.0) 02/04/23 07:46 RDW 13.5 % (12.1-15.1) 02/04/23 07:46 Plt Count 233 10^3/cmm (130-400) 02/04/23 07:46 MPV 10.9 fL (7.4-10.4) H 02/04/23 07:46 Neut % (Auto) 72.7 % 02/04/23 07:46 Lymph % (Auto) 18.5 % 02/04/23 07:46 Barren % (Auto) 6.9 % 02/04/23 07:46 Eos % (Auto) 1.0 % 02/04/23 07:46 Baso % (Auto) 0.5 % 02/04/23 07:46 Neut # (Auto) 5.56 10^3/uL (1.8-7.7) 02/04/23 07:46 Lymph # (Auto) 1.4 10^3/uL (0.8-4.8) 02/04/23 07:46 Barren # (Auto) 0.5 10^3/uL (0.2-0.9) 02/04/23 07:46 Eos # (Auto) 0.1 10^3/uL (0.0-0.8) 02/04/23 07:46 Baso # (Auto) 0.0 10^3/uL (0.0-0.1) 02/04/23 07:46 Nucleated RBC % (auto) 0 % 02/04/23 07:46 Nucleated RBCs # 0.0 /100WBC 02/04/23 07:46 Sodium 137 mmol/L (136-145) 02/04/23 07:46 Potassium 4.1 mmol/L (3.5-5.1) 02/04/23 07:46 Chloride 96 mmol/L (98-107) L 02/04/23 07:46 Carbon Dioxide 26 mmol/L (22-29) 02/04/23 07:46 Anion Gap 19.1 (5-19) H 02/04/23 07:46 BUN 16 mg/dL (8-23) 02/04/23 07:46 Creatinine 0.9 mg/dL (0.5-0.9) 02/04/23 07:46 GFR Calculation 62.3 mL/min (90-130) L 02/04/23 07:46 Glucose 247 mg/dL (65-115) H 02/04/23 07:46 Calculated Osmolality 293 mOsm/kg (285-295) 02/04/23 07:46 Calcium 9.4 mg/dL (8.5-10.5) 02/04/23 07:46 Magnesium 1.1 mg/dL (1.7-2.3) L 02/04/23 07:46 Total Bilirubin 0.3 mg/dL (0.15-1.2) 02/04/23 07:46 AST 22 U/L (0-32) 02/04/23 07:46 ALT 21 U/L (0-33) 02/04/23 07:46 Alkaline Phosphatase 112 U/L (35-105) H 02/04/23 07:46 Troponin T Baseline 14 ng/L (0-10) H 02/04/23 07:46 Troponin T 120 Minute 16.28 ng/L (0-10) H 02/04/23 09:56 Delta Troponin T 2.28 ABS# (0-10) 02/04/23 09:56 NT-Pro-B Natriuret Pep 256 pg/mL (0-125) H 02/04/23 07:46 Total Protein 6.3 g/dL (6.6-8.7) L 02/04/23 07:46 Albumin 4.1 g/dL (3.5-5.2) 02/04/23 07:46 Globulin 2.2 g/dL (1.3-4.6) 02/04/23 07:46 TSH 4.77 uIU/mL (0.27-4.20) H 02/04/23 07:46 Critical Care Time Critical Care Time: Critical Care Time: Yes Total Critical Care Time: 35 Attestation: The high probability of a clinically significant, sudden or life threatening deterioration of the patient's cardiovascular system(s) required my full and direct attention, intervention and personal management. The critical care time is as shown. This time is in addition to time spent performing any reported procedures but includes the following: [x] Data and vital sign review and interpretation [x] Patient assessment, examination and intervention [x] Documentation [x] Medication orders and management Discharge Plan Discharge Patient Disposition: Admitted As Inpatient Clinical Impression: New onset atrial fibrillation, Atrial fibrillation with RVR Condition: Stable Coding Level of Care Code ED Construction Engineer for Paul Lovelace
--- NOTE | 2023-02-04 07:47 | ECG_ITS ---
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 Measurements Intervals [place] Rate: 136 P: 0 SC: 0 QRS: 7 QRSD: 84 T: 53 QT: 275 QTc: 415 Interpretive Statements ATRIAL FIBRILLATION WITH RAPID VENTRICULAR RESPONSE LOW QRS VOLTAGE IN PRECORDIAL LEADS [QRS DEFLECTION < 1.0 mV IN CHEST LEADS] ABNORMAL RHYTHM ECG Compared to ECG 04/23/2018 07:51:01 Sinus bradycardia no longer present Myocardial infarct finding no longer present Electronically Signed On 02-04-2023 16:58:58 CDT by Sarmad Ortega M.D. [id number]
[2023-02-04 08:04] LABS: Basophils % 0.5 %; Eosinophils # 0.1 10^3/uL (0.0-0.8); Hematocrit 38.3 % (37.0-47.0); Hemoglobin 12.2 g/dL (11.5-15.3); Lymphocytes # 1.4 10^3/uL (0.8-4.8); Lymphocytes % 18.5 %; Mean Corpuscular HGB Conc 31.9 g/dL (30.0-36.0); Mean Corpuscular Hemoglobin 29.4 pg (28.0-34.0); Mean Corpuscular Volume 92.3 fl (81-99); Mean Platelet Volume 10.9 fL (7.4-10.4); Monocytes # 0.5 10^3/uL (0.2-0.9); Monocytes % 6.9 %; Neutrophils # 5.56 10^3/uL (1.8-7.7); Neutrophils % 72.7 %; Nucleated Red Blood Cells % 0 %; Platelet Count 233 10^3/cmm (130-400); Red Blood Count 4.15 10^6/uL (4.1-5.3); Red Cell Distribution Width 13.5 % (12.1-15.1); White Blood Count 7.7 10^3/uL (4.0-10.0)
[2023-02-04] MEDS: dilTIAZem 5 mg/mL SDV 5 mL 20 MG IVP ×2 (08:05→09:04)
[2023-02-04] MEDS: dilTIAZem 100 MG in sodium chloride 0.9% (add-van) 100 ML IV (08:15)
[2023-02-04 08:27] LABS: Troponin(5th) Baseline 14 ng/L (0-10)
[2023-02-04 08:35] LABS: Alanine Aminotransferase 21 U/L (0-33); Albumin Level 4.1 g/dL (3.5-5.2); Alkaline Phosphatase 112 U/L (35-105); Anion Gap 19.1 (5-19); Aspartate Amino Transferase 22 U/L (0-32); Blood Urea Nitrogen 16 mg/dL (8-23); Calcium 9.4 mg/dL (8.5-10.5); Carbon Dioxide 26 mmol/L (22-29); Chloride 96 mmol/L (98-107); Globulin 2.2 g/dL (1.3-4.6); Glomerular Filtration Rate 62.3 mL/min (90-130); Glucose 247 mg/dL (65-115); NT Pro B Type Natriuretic Pept 256 pg/mL (0-125); Osmolality Calculated 293 mOsm/kg (285-295); Potassium 4.1 mmol/L (3.5-5.1); Sodium 137 mmol/L (136-145); Total Bilirubin 0.3 mg/dL (0.15-1.2); Total Protein 6.3 g/dL (6.6-8.7)
[2023-02-04] MEDS: acetaminophen 500 mg Tablet 1000 MG PO (09:04)
--- NOTE | 2023-02-04 09:31 | ECG_ITS ---
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 Measurements Intervals [place] Rate: 51 P: 51 VT: 156 QRS: 5 QRSD: 88 T: 31 QT: 375 QTc: 348 Interpretive Statements SINUS BRADYCARDIA LOW QRS VOLTAGE IN PRECORDIAL LEADS [QRS DEFLECTION < 1.0 mV IN CHEST LEADS] Compared to ECG 04/23/2018 07:51:01 Myocardial infarct finding no longer present Electronically Signed On 02-04-2023 16:58:50 CDT by Sarmad Ortega M.D. [id number]
--- NOTE | 2023-02-04 09:43 | ECG_ITS ---
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 Measurements Intervals [place] Rate: 56 P: 38 NE: 150 QRS: 7 QRSD: 85 T: 31 QT: 389 QTc: 378 Interpretive Statements SINUS BRADYCARDIA LOW QRS VOLTAGE IN PRECORDIAL LEADS [QRS DEFLECTION < 1.0 mV IN CHEST LEADS] Compared to ECG 02/04/2023 09:31:38 No significant changes Electronically Signed On 02-04-2023 16:53:51 CDT by Sarmad Ortega M.D. [id number]
--- NOTE | 2023-02-04 10:03 | PM.HP ---
Providers/Chief Complaint Admitting Physician: Papa Solorzano MD Primary Care Provider: Chato Palma MD Chief Complaint: sob, irregular hr and bp History of Present Illness Kathy Frey is a 67 year old female presenting to the emergency department feeling poorly for the last several weeks with shortness of breath, dyspnea on exertion, palpitations, fatigue. She states she has had intermittent palpitations for quite some time, but these usually only last minutes. She denies any chest discomfort other than that listed above. No recent fever. No vomiting or diarrhea. Has been wheezing a little bit more lately than usual. Has been using her inhalers more than usual. In the emergency department she was diagnosed with atrial fibrillation with rapid ventricular rate. She received diltiazem IV and a drip and has subsequently converted. As she was bradycardic, the drip is now been discontinued. She did take her propranolol this morning. Review of Systems General: Reports: 10 or more systems reviewed and unremarkable except in HPI and below Const: Reports: fatigue; Denies: fever(s) or chills Card: Reports: palpitations, irregular heart rhythm and dyspnea on exertion; Denies: chest pain or swelling of feet/ankles Resp: Reports: dyspnea; Denies: productive cough or non-productive cough GI: Denies: abdominal pain, nausea, vomiting, hematochezia or melena Medications/Allergies Home Medications Medication Instructions Recorded Confirmed Last Taken Type allopurinol 300 mg tablet 300 mg PO QAM 07/17/21 09/10/22 Unknown History ascorbic acid (vitamin C) 1,000 mg 1,000 mg PO DAILY 07/17/21 09/10/22 Unknown History tablet (Vitamin C) fluticasone propionate 50 1 - 2 spray intranasal DAILY PRN 07/17/21 09/10/22 Unknown History mcg/actuation nasal Allergy Symptoms spray,suspension hydrochlorothiazide 25 mg tablet 25 mg PO DAILY 07/17/21 09/10/22 Unknown History meclizine 25 mg tablet 25 mg PO QID PRN Nausea 07/17/21 09/10/22 Unknown History multivitamin 1 tab PO DAILY 07/17/21 09/10/22 Unknown History omeprazole 20 mg capsule,delayed 20 mg PO QAM 07/17/21 09/10/22 Unknown History release propranolol 40 mg tablet 40 mg PO BID 07/17/21 09/10/22 04/18/22 06:30 History triamcinolone acetonide 0.1 % 1 applic topical BID PRN unknown 07/17/21 09/10/22 Unknown History topical cream venlafaxine 150 mg 150 mg PO QAM 07/17/21 09/10/22 Unknown History capsule,extended release 24 hr cetirizine 10 mg tablet (Allergy 10 mg PO DAILY PRN Allergy Symptoms 04/09/22 09/10/22 Unknown History Relief (cetirizine)) meloxicam 7.5 mg tablet 7.5 mg PO DAILY PRN Pain 04/09/22 09/10/22 Unknown History ondansetron HCl 8 mg tablet 8 mg PO Q8H PRN Nausea And Vomiting 04/09/22 09/10/22 Unknown History ferrous sulfate 325 mg (65 mg 325 mg PO DAILY 04/16/22 09/10/22 Unknown History iron) tablet (iron) albuterol sulfate 90 mcg/actuation 2 puff inhalation Q4H PRN 07/17/22 09/10/22 Unknown Rx aerosol inhaler (Ventolin HFA) Shortness Of Breath #8.5 grams glimepiride 4 mg tablet 4 mg PO BID #180 tabs 09/10/22 09/10/22 Unknown Rx metformin 850 mg tablet 850 mg PO BID 09/10/22 09/10/22 Unknown History furosemide 20 mg tablet See Rx Instructions .Route 01/19/23 Unknown Rx .COMPLEX #90 tabs simvastatin 20 mg tablet See Rx Instructions .Route 01/19/23 Unknown Rx .COMPLEX #90 tabs Allergies Allergy/AdvReac Type Severity Reaction Status Date / Time morphine Allergy ALGY-formic Verified 02/04/23 07:40 ation ofloxacin [From Floxin] Allergy ADR-Anxiety Verified 02/04/23 07:40 red dye Allergy vomit Verified 02/04/23 07:40 PFSH Acute PFSH: Medical History (Updated 02/04/23 @ 10:15 by Papa Solorzano MD) Anemia Arthritis Asthma Cervical disc disease Depression Diabetes GERD (gastroesophageal reflux disease) / Hiatal hernia Gout Hyperlipidemia Hypertension Surgical History Elbow dislocation Right History of bilateral salpingo-oophorectomy (BSO) History of carpal tunnel release Right History of esophagogastroduodenoscopy (EGD) History of hysterectomy History of umbilical hernia repair (04/18/22) Hx of cholecystectomy Hx of colonoscopy 2018 or 2019 Status post bilateral knee replacements Family History (Updated 02/04/23 @ 10:06 by Papa Solorzano MD) Other Cancer Diabetes Social History Smoking and tobacco status: never smoked Alcohol intake: never Vitals/I&O/Wt Last Vital Signs Temp 98.4 F 02/04/23 07:35 Pulse 55 L 02/04/23 09:41 Resp 16 02/04/23 09:41 BP 115/78 02/04/23 09:41 Pulse Ox 94 02/04/23 09:41 O2 Del Method Nasal Cannula 02/04/23 09:41 O2 Flow Rate 2 02/04/23 09:41 02/03/23 02/04/23 02/04/23 22:59 06:59 14:59 Intake Total 11.917 / 11.917 Balance 11.917 / 11.917 Weight last 48 hrs Weight 128.82 kg Physical Exam Narrative: General exam is a white female, no distress. HEENT: Atraumatic and normocephalic. Pupils equally round. Oropharynx clear. Neck is supple no lymphadenopathy thyromegaly Cardiovascular regular rate and rhythm without murmur Lungs clear no wheezing or crackles Abdomen is soft nontender positive bowel sounds. No obvious organomegaly exam is deferred Extremities no cyanosis clubbing or edema. Cap refill brisk Skin no rash Neuro no obvious focal deficits Data 02/04/23 07:46 02/04/23 07:46 Other Labs: LFTs are reviewed and essentially normal. Alk phos slightly high at 112. Troponin 14, repeat pending BNP 256 I have ordered a TSH and magnesium level Chest x-ray no obvious infiltrate. I reviewed this personally EKG. Repeat EKG demonstrates sinus bradycardia, normal axis, no acute changes. Initial heart rate when she arrived in the emergency department was approximately 140. Initial EKG demonstrates atrial fibrillation with a rate of approximately 136, normal axis, nonspecific ST-T wave changes A&P Assessment and plan (1) New onset atrial fibrillation: Patient presents with new onset atrial fibrillation With Cardizem she has since converted Convert her propranolol to metoprolol. Initiate full anticoagulation with Eliquis Check TSH and magnesium Echocardiogram Telemetry (2) Asthma: No evidence of exacerbation currently Change propranolol to metoprolol, a selective beta-gale Albuterol as needed (3) Hypertension: Continue other home medication (4) Diabetes: Initiate sliding scale insulin Plan Probable obstructive sleep apnea. Discussed with family and patient need for sleep study as an outpatient Multiple other medical problems as outlined in past medical history Full code Eliquis will suffice for DVT prophylaxis Attestations Medical Necessity Statement*: Will need less than 2 midnight stay for evaluation and treatment of atrial fibrillation with rapid ventricular rate Diagnoses New onset atrial fibrillation I48.91 Asthma J45.909 Hypertension I10 Diabetes E11.9 Time Spent (min) 57
[2023-02-04 10:23] LABS: Magnesium 1.1 mg/dL (1.7-2.3); Thyroid Stimulating Hormone 4.77 uIU/mL (0.27-4.20)
[2023-02-04 10:35] LABS: Troponin 5 2HR 16.28 ng/L (0-10)
[2023-02-04 10:38] LABS: Troponin 5 2HR Delta 2.28 ABS# (0-10)
[2023-02-04] MEDS: apixaban 5 mg Tablet PO ×2 (10:40→18:17)
--- NOTE | 2023-02-04 13:32 | ECG_ITS ---
[facility] Test Date: 2023-02-04 Pat Name: Kathy Frey Department: Room: Gender: Female Student Specialist: : 1955 Requested By: Lidia Galindo Order Number: [id number] Reese MD: Sarmad Ortega M.D. Measurements Intervals [place] Rate: 61 P: 24 VA: 150 QRS: 9 QRSD: 86 T: 16 QT: 399 QTc: 403 Interpretive Statements SINUS RHYTHM LOW QRS VOLTAGE IN PRECORDIAL LEADS [QRS DEFLECTION < 1.0 mV IN CHEST LEADS] Compared to ECG 02/04/2023 09:43:34 Sinus bradycardia no longer present Electronically Signed On 02-04-2023 16:57:53 CDT by Sarmad Ortega M.D. [id number]
[2023-02-04 14:14] LABS: Troponin 5 6HR 17.46 ng/L (0-10)
[2023-02-04 14:15] LABS: Troponin 5 6HR Delta 3.46 ng/L (0-12)
--- NOTE | 2023-02-04 14:31 | USCV_ITS ---
Kathy Frey Age: 67 Gender: F : 1955 Exam Date: 02/04/2023 16:56 Ordering Phys: Papa Solorzano MD Technologist: JUSTIN Exam Location: [facility] [place] Indication: NEW ONSET A FIB BP: 107 / 62 HR: 62 Rhythm: Sinus Technical Quality: Adequate MEASUREMENTS (Male / Female) Normal Values 2D ECHO LVOT Diameter 2.1 cm LV Ejection Fraction MOD 2C 60.7 % LV Ejection Fraction 2C AL 62.3 % LA Diameter 3.9 cm LA Width 3.9 cm LA Height 4.8 cm RA Width 3.4 cm RA Height 4.0 cm Aorta at Sinotubular Diameter 1.9 cm IVC Diameter 1.9 cm M-MODE Aortic Annulus Diameter 2.7 cm LA Ao Ratio MM 1.6 MV E Point Septal Separation 0.4 cm DOPPLER AV Peak Velocity 193.3 cm/s LVOT Peak Velocity 109.0 cm/s AV Area Cont Eq vti 2.2 cm squared AV Area Cont Eq pk 1.9 cm squared MV Peak Velocity 126.0 cm/s MV Area PHT 4.2 cm squared Mitral E to A Ratio 0.7 MV E' Velocity 35.5 cm/s Mitral E to MV E' Ratio 9.6 Mitral E to LV E' Lateral Ratio 10.1 Mitral E to LV E' Septal Ratio 9.2 TR Peak Velocity 302.0 cm/s TR Peak Gradient 36.5 mmHg TR Mean Velocity 234.2 cm/s TR Mean Gradient 25.2 mmHg TR Velocity Time Integral 67.9 cm Right Atrial Pressure 3.0 mmHg Pulmonary Artery Systolic Pressu 39.5 mmHg PV Peak Velocity 124.0 cm/s RV Acceleration Time 0.1 s RV Ejection Time 0.3 s RV AcT/ET 0.4 FINDINGS Left Ventricle Left ventricle is normal in size. LV systolic function is normal with EF of 55 to 60%. No regional wall motion abnormalities are seen. Grade 1 diastolic dysfunction Right Ventricle Normal in size and function Right Atrium Normal in size Left Atrium Normal in size Mitral Valve Moderate mitral annular calcification.Trace mitral regurgitation. Aortic Valve Grossly normal. No significant stenosis or regurgitation. Tricuspid Valve Trace tricuspid regurgitation. Insufficient TR jet to calculate RVSP. Pulmonic Valve Not well visualized Pericardium Normal Aorta Normal in size IVC Appears to be normal CONCLUSIONS LV systolic function is normal with EF 55 to 60% Grade 1 diastolic dysfunction Trace mitral regurgitation Trace tricuspid regurgitation No comparison studies are available Sarmad Ortega MD (Electronically Signed) Final Date: 05 Feb 2023 09:19 S
--- NOTE | 2023-02-04 15:13 | PC.NURSE ---
Lunch tray provided to patient.
--- NOTE | 2023-02-04 16:40 | PC.NURSE ---
received into room 111-2 from er at 1540.report received.pt is alert and awake and oriented x 4.denies pain at present.sr on monitor.oriented to room environment.instructed to notify staff for any chest pain,dizziness,sob,or for any concerns at all.pt verb understanding of instructions
[2023-02-04 16:51] LABS: Glucose Point of Care 259 mg/dL (70-110)
[2023-02-04] MEDS: insulin lispro 100 unit/1 mL SUBCUT ×2 (17:03→20:51)
[2023-02-04] MEDS: acetaminophen 325 mg Tablet 650 MG PO (18:21)
[2023-02-04 20:36] LABS: Glucose Point of Care 236 mg/dL (70-110)
[2023-02-04] MEDS: metoprolol tartrate 50 mg Tablet PO (20:51)
[2023-02-04] MEDS: atorvastatin 40 mg Tablet 20 MG PO (20:51)
[2023-02-05] VITALS: BP 146/78; PULSE 65; RESP 18; TEMP 36.4; O2SAT 95
[2023-02-05] MEDS: acetaminophen 325 mg Tablet 650 MG PO (00:14)
[2023-02-05 04:00] VITALS: BP 121/82; PULSE 56; RESP 12; TEMP 36.5; O2SAT 92
[2023-02-05] MEDS: fexofenadine 60 mg Tablet 180 MG PO (05:26)
[2023-02-05] MEDS: FUROsemide 20 mg Tablet PO (05:26)
[2023-02-05] MEDS: hydroCHLOROthiazide 25 mg Tablet PO (05:26)
[2023-02-05] MEDS: allopurinol 300 mg Tablet PO (05:26)
[2023-02-05] MEDS: venlafaxine ER (24HR) 150 mg Capsule PO (05:26)
[2023-02-05 06:00] VITALS: PULSE 56
[2023-02-05 06:04] LABS: Basophils % 0.5 %; Eosinophils # 0.1 10^3/uL (0.0-0.8); Eosinophils % 1.2 %; Hematocrit 36.8 % (37.0-47.0); Hemoglobin 11.4 g/dL (11.5-15.3); Lymphocytes # 1.5 10^3/uL (0.8-4.8); Lymphocytes % 19.6 %; Mean Corpuscular Hemoglobin 29.9 pg (28.0-34.0); Mean Corpuscular Volume 96.6 fl (81-99); Mean Platelet Volume 10.9 fL (7.4-10.4); Monocytes # 0.5 10^3/uL (0.2-0.9); Neutrophils # 5.46 10^3/uL (1.8-7.7); Neutrophils % 71.2 %; Nucleated Red Blood Cells % 0 %; Platelet Count 215 10^3/cmm (130-400); Red Blood Count 3.81 10^6/uL (4.1-5.3); Red Cell Distribution Width 13.6 % (12.1-15.1); White Blood Count 7.7 10^3/uL (4.0-10.0)
[2023-02-05 06:35] LABS: Glucose Point of Care 238 mg/dL (70-110)
[2023-02-05 06:37] LABS: Anion Gap 16.3 (5-19); Blood Urea Nitrogen 15 mg/dL (8-23); Calcium 9.4 mg/dL (8.5-10.5); Carbon Dioxide 28 mmol/L (22-29); Chloride 98 mmol/L (98-107); Creatinine Clr Calc Pharmacy 84.2898; Glomerular Filtration Rate 62.3 mL/min (90-130); Glucose 237 mg/dL (65-115); Osmolality Calculated 295 mOsm/kg (285-295); Potassium 4.3 mmol/L (3.5-5.1); Sodium 138 mmol/L (136-145)
--- NOTE | 2023-02-05 07:06 | PM.DCS ---
Discharge Providers Date of Admission: 02/04/23 14:31 Date of Discharge: February 05, 2023 Attending Provider at Admission: Papa Solorzano MD Attending Provider at Discharge: Papa Solorzano MD Primary Care Provider: Chato Palma MD Diagnoses at Discharge Discharge Diagnosis (1) New onset atrial fibrillation: Status: Acute (2) Asthma: Status: Acute (3) Hypertension: Status: Acute (4) Diabetes: Status: Acute Reason for Visit Reason for Visit: sob, irregular hr and bp Hospital Course Hospital Course Kathy is a 67-year-old white female who presented with 2 weeks of shortness of breath. She was found to be in atrial fibrillation with rapid ventricular rate. Diltiazem was started in the emergency department and after a bolus and drip she eventually converted to sinus rhythm. Her propranolol was switched to metoprolol. Eliquis was started. She was monitored overnight and remained in sinus rhythm. It was thought she could be discharged home, with close follow-up with her primary as well as cardiology. Echocardiogram demonstrated normal EF, grade 1 diastolic dysfunction. TSH slightly elevated 4.77 and should be checked in the future. There were no electrolyte abnormalities. Troponin trend was not concerning considering scenario. She was given an opportunity ask questions and agreed with the plan. Risks, benefits of Eliquis were discussed in detail. Chads-Vasc score at least 4. She was encouraged to get an outpatient sleep study through her PCP. Physical Exam Narrative: General exam is no distress Neck is supple Cardiovascular regular rate and rhythm without murmur Lungs clear Abdomen is soft with positive bowel sounds Extremities no cyanosis clubbing or edema Discharge Data Studies Completed and Pending Completed Studies During Hospitalization Category Date Time Status XR chest 1V portable [id number] Urgent Exams 02/04/23 07:32 Completed Pending at discharge Category Date Time Status CV. echo complete* [id number] Routine Ultrasound 02/04/23 14:31 Taken Radiology Impressions Chest X-Ray 02/04/23 07:32 IMPRESSION: No acute findings. Laboratory Results WBC 7.7 10^3/uL (4.0-10.0) 02/05/23 05:25 RBC 3.81 10^6/uL (4.1-5.3) L 02/05/23 05:25 Hgb 11.4 g/dL (11.5-15.3) L 02/05/23 05:25 Hct 36.8 % (37.0-47.0) L 02/05/23 05:25 MCV 96.6 fl (81-99) 02/05/23 05:25 MCH 29.9 pg (28.0-34.0) 02/05/23 05:25 MCHC 31.0 g/dL (30.0-36.0) 02/05/23 05:25 RDW 13.6 % (12.1-15.1) 02/05/23 05:25 Plt Count 215 10^3/cmm (130-400) 02/05/23 05:25 MPV 10.9 fL (7.4-10.4) H 02/05/23 05:25 Neut % (Auto) 71.2 % 02/05/23 05:25 Lymph % (Auto) 19.6 % 02/05/23 05:25 [place] % (Auto) 7.0 % 02/05/23 05:25 Eos % (Auto) 1.2 % 02/05/23 05:25 Baso % (Auto) 0.5 % 02/05/23 05:25 Neut # (Auto) 5.46 10^3/uL (1.8-7.7) 02/05/23 05:25 Lymph # (Auto) 1.5 10^3/uL (0.8-4.8) 02/05/23 05:25 [place] # (Auto) 0.5 10^3/uL (0.2-0.9) 02/05/23 05:25 Eos # (Auto) 0.1 10^3/uL (0.0-0.8) 02/05/23 05:25 Baso # (Auto) 0.0 10^3/uL (0.0-0.1) 02/05/23 05:25 Nucleated RBC % (auto) 0 % 02/05/23 05:25 Nucleated RBCs # 0.0 /100WBC 02/05/23 05:25 Sodium 138 mmol/L (136-145) 02/05/23 05:25 Potassium 4.3 mmol/L (3.5-5.1) 02/05/23 05:25 Chloride 98 mmol/L (98-107) 02/05/23 05:25 Carbon Dioxide 28 mmol/L (22-29) 02/05/23 05:25 Anion Gap 16.3 (5-19) 02/05/23 05:25 BUN 15 mg/dL (8-23) 02/05/23 05:25 Creatinine 0.9 mg/dL (0.5-0.9) 02/05/23 05:25 GFR Calculation 62.3 mL/min (90-130) L 02/05/23 05:25 Glucose 237 mg/dL (65-115) H 02/05/23 05:25 POC Glucose 238 mg/dL (70-110) H 02/05/23 06:27 Calculated Osmolality 295 mOsm/kg (285-295) 02/05/23 05:25 Calcium 9.4 mg/dL (8.5-10.5) 02/05/23 05:25 Magnesium 1.1 mg/dL (1.7-2.3) L 02/04/23 07:46 Total Bilirubin 0.3 mg/dL (0.15-1.2) 02/04/23 07:46 AST 22 U/L (0-32) 02/04/23 07:46 ALT 21 U/L (0-33) 02/04/23 07:46 Alkaline Phosphatase 112 U/L (35-105) H 02/04/23 07:46 Troponin T Baseline 14 ng/L (0-10) H 02/04/23 07:46 Troponin T 120 Minute 16.28 ng/L (0-10) H 02/04/23 09:56 Delta Troponin T 2.28 ABS# (0-10) 02/04/23 09:56 Troponin T Hi Sens 6Hr 17.46 ng/L (0-10) H 02/04/23 13:45 Troponin T Hi Sens 6Hr Delta 3.46 ng/L (0-12) 02/04/23 13:45 NT-Pro-B Natriuret Pep 256 pg/mL (0-125) H 02/04/23 07:46 Total Protein 6.3 g/dL (6.6-8.7) L 02/04/23 07:46 Albumin 4.1 g/dL (3.5-5.2) 02/04/23 07:46 Globulin 2.2 g/dL (1.3-4.6) 02/04/23 07:46 TSH 4.77 uIU/mL (0.27-4.20) H 02/04/23 07:46 Vitals Last Vital Signs Temp 97.7 F 02/05/23 04:00 Pulse 56 L 02/05/23 06:00 Resp 12 02/05/23 04:00 BP 121/82 02/05/23 04:00 Pulse Ox 92 02/05/23 04:00 O2 Del Method Room Air 02/05/23 04:00 O2 Flow Rate 2 02/04/23 11:40 Discharge Plan Discharge Patient Disposition: Home Condition: Stable Prescriptions: New Eliquis 5 mg Tablet 5 mg PO BID Qty: 60 0RF metoprolol tartrate 50 mg Tablet 50 mg PO BID@0900,2100 Qty: 60 0RF Continued metformin 850 mg tablet 850 mg PO BID glimepiride 4 mg tablet 4 mg PO BID Qty: 180 11RF albuterol sulfate [Ventolin HFA] 90 mcg/actuation HFA aerosol inhaler 2 puff INHALATION Q4H PRN (Reason: Shortness Of Breath) Qty: 8.5 11RF allopurinol 300 mg tablet 300 mg PO QAM fluticasone propionate 50 mcg/actuation spray,suspension 1 - 2 spray INTRANASAL DAILY PRN (Reason: Allergy Symptoms) meclizine 25 mg tablet 25 mg PO QID PRN (Reason: Dizziness) omeprazole 20 mg capsule,delayed release(DR/EC) 20 mg PO QAM hydrochlorothiazide 25 mg tablet 25 mg PO QAM triamcinolone acetonide 0.1 % cream 1 applic TOPICAL BID PRN (Reason: unknown) multivitamin Tablet 1 tab PO QAM ascorbic acid (vitamin C) [Vitamin C] 1,000 mg Tablet 1,000 mg PO QAM venlafaxine 150 mg capsule,extended release 24hr 150 mg PO QAM ferrous sulfate [iron] 325 mg (65 mg iron) Tablet 325 mg PO QAM fexofenadine 180 mg Tablet 180 mg PO QAM simvastatin 20 mg tablet 20 mg PO BEDTIME furosemide 20 mg tablet 20 mg PO QAM Discontinued propranolol 40 mg tablet 40 mg PO BID meloxicam 7.5 mg tablet 7.5 mg PO DAILY Discharge Orders: Discharge Order (Routine); Ordered 02/05/23 Ordered By: Papa Solorzano Referrals: Sonia Hughes FNP [Nurse Practitioner] - 02/19/23 9:00 am (Please follow-up with Sonia Hughes on February 19 at 9:00A.M. If you have any questions or need to reschedule. Please call ) Chato Palma MD [Primary Care Provider] - 02/11/23 8:30 am (Please follow-up with Dr. Palma on February 11 at 8:30A.M. If you have any questions or need to reschedule. Please call ) Discharge Diet: Cardiac and Diabetic Discharge Activity: Increase activity as tolerated Patient Instructions: Metoprolol (By mouth) (Lopressor, Toprol XL), Apixaban (By mouth) (Eliquis), A-fib (Atrial Fibrillation) (DC), Asthma (DC), Hypertension (DC), Opioid Safety Activity Restrictions/Additional Instructions: Follow-up with primary care provider 3 to 5 days Follow-up with cardiology 2 weeks. Patient's Health Concerns: Fast irregular heart rate Assessment: Atrial fibrillation with rapid ventricular rate Plan of Treatment: Patient converted. Metoprolol initiated. Eliquis added. Follow-up with cardiology and primary care provider Goals: No recurrent symptomatic atrial fibrillation Discharge Attestations Time Spent in Discharge Care*: greater than 30 min Quality Metrics Clinical Quality Measures [ No reported AMI, CVA or VTE this stay] Coding Level of Care Code 70113 Total time (in minutes) for Discharge: 35 Diagnoses New onset atrial fibrillation I48.91 Asthma J45.909 Hypertension I10 Diabetes E11.9
[2023-02-05 08:00] VITALS: BP 150/64; PULSE 66; RESP 17; TEMP 36.4; O2SAT 93
[2023-02-05] MEDS: apixaban 5 mg Tablet PO (08:44)
[2023-02-05] MEDS: insulin lispro 100 unit/1 mL SUBCUT (08:44)
[2023-02-05] MEDS: pantoprazole DR 40 mg Tablet PO (08:44)
[2023-02-05 09:05] VITALS: PULSE 69; RESP 16; O2SAT 94
[2023-02-05] MEDS: metoprolol tartrate 50 mg Tablet PO (09:55)
[2023-02-05] MEDS: magnesium sulfate premix 2 GM/50 ML PIGGYBACK IV (09:55)
[2023-02-05 10:25] VITALS: PULSE 69; RESP 16; O2SAT 94
--- NOTE | 2023-02-05 11:53 | PC.NURSE ---
discharge instructions given and explained.pt verb understanding of instructions.discharged via w/c to exit at this time.spouse to drive pt home.
== END 2023-02-05 11:05 | disposition home or self-care (01) ==
LOC: ER 12:24 → CSU 17:27
PROVIDERS: Physician Assistant; Admitting Provider Internal Medicine; Emergency Provider Family Medicine; PCP Family Medicine; Visit Provider Internal Medicine
DX: I48.91 Unspecified atrial fibrillation (principal); J45.909 Unspecified asthma, uncomplicated; I10 Essential (primary) hypertension; E11.9 Type 2 diabetes mellitus without complications; R00.1 Bradycardia, unspecified; K21.9 Gastro-esophageal reflux disease without esophagitis; Z79.84 Long term (current) use of oral hypoglycemic drugs; E78.5 Hyperlipidemia, unspecified; F32.A Depression, unspecified
CPT/HCPCS: 36415; 36416; 71045; 80048; 80053; 82962; 83735; 83880; 84443; 84484; 85025; 93005; 93306; 96365; 96366; 96367; 96372; 99285; G0378; J1815; J3475; J3490

== ENCOUNTER → 2023-03-03 08:29 | Outpatient (BNVA) | payer MEDICARE, SELFPAY | PROVIDERS: PCP Family Medicine; Visit Provider Family Medicine | DX: I10 Essential (primary) hypertension (principal); E78.5 Hyperlipidemia, unspecified; E11.9 Type 2 diabetes mellitus without complications | CPT/HCPCS: 80053; 80061; 83036 ==

== ENCOUNTER → 2023-03-13 10:02 | Outpatient (BNVA) | payer MEDICARE, SELFPAY | PROVIDERS: PCP Family Medicine; Visit Provider Internal Medicine Cardiovascular Disease | DX: I48.0 Paroxysmal atrial fibrillation (principal); Z79.01 Long term (current) use of anticoagulants | CPT/HCPCS: 99204 ==

== ENCOUNTER → 2023-06-09 09:48 | Outpatient (BNVA) | payer MEDICARE, SELFPAY | PROVIDERS: PCP Family Medicine; Visit Provider Family Medicine | DX: I48.91 Unspecified atrial fibrillation (principal); I10 Essential (primary) hypertension; E78.5 Hyperlipidemia, unspecified; E11.9 Type 2 diabetes mellitus without complications | CPT/HCPCS: 80053; 83036; 85025 ==

== ENCOUNTER → 2023-09-08 09:20 | Outpatient (BNVA) | payer MEDICARE, SELFPAY | PROVIDERS: PCP Family Medicine; Visit Provider Family Medicine | DX: E03.8 Other specified hypothyroidism (principal); E10.9 Type 1 diabetes mellitus without complications; J45.909 Unspecified asthma, uncomplicated; I48.91 Unspecified atrial fibrillation; E78.5 Hyperlipidemia, unspecified; I10 Essential (primary) hypertension | CPT/HCPCS: 80053; 83036; 85025 ==

== ENCOUNTER → 2023-10-09 10:57 | Outpatient (BNVA) | payer MEDICARE, SELFPAY | PROVIDERS: PCP Family Medicine; Visit Provider Internal Medicine Cardiovascular Disease | DX: I10 Essential (primary) hypertension (principal); E78.5 Hyperlipidemia, unspecified; I48.91 Unspecified atrial fibrillation; E11.9 Type 2 diabetes mellitus without complications; Z79.01 Long term (current) use of anticoagulants; Z79.84 Long term (current) use of oral hypoglycemic drugs | CPT/HCPCS: 99214 ==

== ENCOUNTER → 2023-12-31 07:51 | Outpatient (BNVA) | payer MEDICARE, SELFPAY | PROVIDERS: PCP Family Medicine; Visit Provider Family Medicine | DX: I10 Essential (primary) hypertension (principal); I48.91 Unspecified atrial fibrillation; E78.5 Hyperlipidemia, unspecified; E11.9 Type 2 diabetes mellitus without complications | CPT/HCPCS: 80053; 80061; 82607; 83036; 84550; 85025 ==

== ENCOUNTER 2024-03-11 09:12 | Outpatient (CLI) | payer MEDICARE, SELFPAY ==
--- NOTE | 2024-03-11 09:20 | XR_ITS ---
WS: [id number] Exam: XR hip LT 2-3V wo/w pel* [id number] Date/Time of Exam: 03/11/2024 9:21 AM Reason For Exam: hip pain/ fall in January No acute fracture or dislocation. Minimal degenerative thinning of the joint compartment. Normal soft tissues. XR/XR hip LT 2-3V wo/w pel* [id number] IMPRESSION: 1. Mild DJD.
== END 2024-03-11 09:13 | disposition home or self-care (01) ==
PROVIDERS: PCP Family Medicine; Visit Provider Family Medicine
DX: M25.552 Pain in left hip (principal)
CPT/HCPCS: 73502; 80053; 81000; 83880; 84443

== ENCOUNTER → 2024-04-27 07:55 | Outpatient (BNVA) | payer MEDICARE, SELFPAY | PROVIDERS: PCP Family Medicine; Visit Provider Family Medicine | DX: E78.5 Hyperlipidemia, unspecified (principal); I48.91 Unspecified atrial fibrillation; E11.22 Type 2 diabetes mellitus with diabetic chronic kidney disease; I12.9 Hypertensive chronic kidney disease with stage 1 through stage 4 chronic kidney disease, or unspecified chronic kidney disease; N18.9 Chronic kidney disease, unspecified | CPT/HCPCS: 80053; 80061; 83036; 85025 ==

== ENCOUNTER 2024-06-24 09:52 | Inpatient (IN) | payer MEDICARE, SELFPAY ==
[2024-06-24] VITALS (8 sets, daily range): BP systolic 129–174; BP diastolic 65–87; PULSE 67–89; RESP 16–17; TEMP 36.6–36.9; O2SAT 92–97; BMI 42.4; BMI 43.9
--- NOTE | 2024-06-24 10:25 | XR_ITS ---
WS: [id number] Exam: XR chest 1V portable [id number] Date/Time of Exam: 06/24/2024 10:37 AM Reason For Exam: confusion Comparison 02/04/2023. The lungs are fully expanded and clear. Heart size top limits normal. No pleural effusions. Regional bony elements are intact. The mediastinum is normal in contour. XR/XR chest 1V portable [id number] IMPRESSION: 1. No acute cardiopulmonary finding.
--- NOTE | 2024-06-24 10:25 | ECG_ITS ---
[facility] Test Date: 2024-06-24 Pat Name: Kathy Frey Department: Room: Gender: Female Emergency Room Technician: : 1955 Requested By: Noemy Joya Order Number: [id number] Reese MD: Sarmad Ortega M.D. Measurements Intervals [place] Rate: 69 P: 59 CT: 160 QRS: -4 QRSD: 100 T: 34 QT: 383 QTc: 411 Interpretive Statements SINUS RHYTHM Compared to ECG 02/04/2023 13:42:07 No significant changes Electronically Signed On 06-24-2024 18:17:02 CDT by Sarmad Ortega M.D. [id number] f
--- NOTE | 2024-06-24 10:25 | CT_ITS ---
WS: [id number] CT HEAD NONCONTRAST HISTORY: confusion TECHNIQUE: Contiguous axial imaging performed through the brain. Bone and soft tissue windows. Sagitt al and coronal reformats reviewed. All CT scans at [facility] use at least one of these dose optimization techniques: automated exposure control; mA and/or kV adjustment per patient size (includ es targeted exams where dose is matched to clinical indication); or iterative reconstruction. DLP: 1093.68 mGy.cm COMPARISON: 11/01/2018 No acute intracranial hemorrhage, midline shift or mass effect. No atrophy or prior infarcts or herniation. Reidentified is a RIGHT cerebellar 8 x 6 mm calcification with no adjacent edema. Stable since 2019. No new mass or mass effect. Ventricles: Normal size with no hydrocephalus. Paranasal sinuses: As visualized are clear. Mastoid air cells: Well pneumatized. Calvarium and scalp: Skull is intact with no soft tissue edema or swelling. CT/CT head wo con* [id number] IMPRESSION: 1. No acute intracranial hemorrhage or edema. 2. Stable noncontrast head CT since 11/01/2018.
--- NOTE | 2024-06-24 10:32 | W.ED.PSYCHS ---
HPI - Psych General: Chief Complaint: Psychiatric Symptoms Stated Complaint: AMS, Hearing things in her head, something in ear Time Seen by Provider: 06/24/24 09:58 Source: patient Mode of arrival: ambulatory Limitations: no limitations History of Present Illness: 68-year-old female states she has been hearing voices over the last 2 to 3 months. She states it is gradually getting worse states sometimes they threatened her and she states they always know what she is going to do. Patient has no history of any psychiatric issues in the past. She denies any weakness slurred speech denies any headaches. She denies being suicidal or homicidal. Patient states on Friday she had been sleeping her was unable to get her up and states her breathing was shallow and called EMS. They state that since then her symptoms been much worse she has been increasing confused and groggy and concerned she may have had a stroke as well and her hearing voices have worsened since then Associated symptoms: Reports auditory hallucinations; Deny depression Related Data Home Medications Medication Instructions Recorded Confirmed ascorbic acid (vitamin C) 1,000 mg 1,000 mg PO QAM 07/17/21 06/24/24 tablet (Vitamin C) multivitamin 1 tab PO QAM 07/17/21 06/24/24 ferrous sulfate 325 mg (65 mg 325 mg PO QAM 04/16/22 06/24/24 iron) tablet (iron) magnesium oxide 400 mg (241.3 mg 400 mg PO DAILY 03/13/23 06/24/24 magnesium) tablet allopurinol 300 mg tablet 300 mg PO DAILY 06/24/24 06/24/24 fluticasone propionate 50 2 spray intranasal DAILY 06/24/24 06/24/24 mcg/actuation nasal spray,suspension furosemide 40 mg tablet 40 mg PO DAILY swelling 06/24/24 06/24/24 glimepiride 4 mg tablet 4 mg PO BID 06/24/24 06/24/24 hydrochlorothiazide 25 mg tablet 25 mg PO DAILY 06/24/24 06/24/24 levothyroxine 25 mcg tablet 25 mcg PO DAILY 06/24/24 06/24/24 metformin 850 mg tablet 850 mg PO BID 06/24/24 06/24/24 metoprolol tartrate 50 mg tablet 25 mg PO DAILY 06/24/24 06/24/24 omeprazole 20 mg capsule,delayed 20 mg PO DAILY 06/24/24 06/24/24 release pioglitazone 15 mg tablet 15 mg PO DAILY 06/24/24 06/24/24 Previous Rx's Medication Instructions Recorded albuterol sulfate 90 mcg/actuation 2 puff inhalation Q4H PRN 07/24/23 aerosol inhaler (Ventolin HFA) Shortness Of Breath #8.5 grams apixaban 2.5 mg tablet 2.5 mg PO BID #180 tabs 01/07/24 mecobalamin (vitamin B12) 1,000 1,000 mcg PO DAILY #30 tabs 01/07/24 mcg chewable tablet Allergies Allergy/AdvReac Type Severity Reaction Status Date / Time morphine Allergy ALGY-formic Verified 04/08/24 11:31 ation ofloxacin [From Floxin] Allergy ADR-Anxiety Verified 04/08/24 11:31 red dye Allergy vomit Verified 04/08/24 11:31 [id number] Reductase AdvReac myalgias Verified 04/08/24 11:31 Inhibitor Review of Systems Const: Denies: fever(s), chills, body aches or change in appetite Eyes: Denies: blurry vision or eye discomfort ENMT: Denies: throat pain or dental pain Card: Denies: chest pain Resp: Denies: dyspnea GI: Denies: abdominal pain, nausea, vomiting or diarrhea Musc: Denies: neck pain or back pain Skin/Breast: Denies: rash Neuro: Denies: headache(s) Psych: Reports: auditory hallucinations; Denies: depression PFSH ED PFSH: Medical History Anticoagulation adequate with anticoagulant therapy Morbid obesity Arthritis Anemia GERD (gastroesophageal reflux disease) / Hiatal hernia Hyperlipidemia Hypertension Gout Depression Diabetes Cervical disc disease Asthma Surgical History History of umbilical hernia repair (04/18/22) History of esophagogastroduodenoscopy (EGD) Hx of cholecystectomy Hx of colonoscopy 2018 or 2019 History of carpal tunnel release Right Elbow dislocation Right History of bilateral salpingo-oophorectomy (BSO) History of hysterectomy Status post bilateral knee replacements Family History Other Cancer Diabetes Social History Smoking and tobacco/nicotine status: unknown if used tobacco/nicotine Alcohol intake: never Course Vital Signs: Vital signs: Vital Signs Temperature 98.5 F 06/24/24 10:21 Pulse Rate 73 06/24/24 11:32 Respiratory Rate 17 06/24/24 10:21 Blood Pressure 163/80 06/24/24 11:32 Pulse Oximetry 97 06/24/24 11:32 Oxygen Delivery Me thod Room Air 06/24/24 11:32 MDM - Psych Medical Decision Making Patient presents here with hearing voices she also been having some confusions got much worse this episode on Friday she is also dehydrated here with acute kidney injury head CT here is normal spoke to hospitalist will admit at this time for her auditory elucidation's along with increased confusion and acute kidney injury Medical Records I reviewed the patient's medical records. Lab Data I reviewed the patient's lab results. 06/24/24 11:00 06/24/24 11:00 Radiology Impressions Chest X-Ray 06/24/24 10:25 IMPRESSION: 1. No acute cardiopulmonary finding. Head CT 06/24/24 10:25 IMPRESSION: 1. No acute intracranial hemorrhage or edema. 2. Stable noncontrast head CT since 11/01/2018. Laboratory Results WBC 8.79 10^3/uL (3.29-11.43) 06/24/24 11:00 RBC 3.90 10^6/uL (3.85-5.65) 06/24/24 11:00 Hgb 11.30 g/dL (11.27-16.99) 06/24/24 11:00 Hct 34.6 % (36-47) L 06/24/24 11:00 MCV 88.7 fl (85-98) 06/24/24 11:00 MCH 29.0 pg (27-33) 06/24/24 11:00 MCHC 32.7 g/dL (30-55) 06/24/24 11:00 RDW 14.6 % (12.1-15.1) 06/24/24 11:00 Plt Count 221 10^3/cmm (157-399) 06/24/24 11:00 MPV 10.9 fL (7.4-10.4) H 06/24/24 11:00 Neut % (Auto) 76.7 % 06/24/24 11:00 Lymph % (Auto) 14.6 % 06/24/24 11:00 [place] % (Auto) 7.7 % 06/24/24 11:00 Eos % (Auto) 0.2 % 06/24/24 11:00 Baso % (Auto) 0.3 % 06/24/24 11:00 Neut # (Auto) 6.74 10^3/uL (1.8-7.7) 06/24/24 11:00 Lymph # (Auto) 1.3 10^3/uL (0.8-4.8) 06/24/24 11:00 [place] # (Auto) 0.7 10^3/uL (0.2-0.9) 06/24/24 11:00 Eos # (Auto) 0.0 10^3/uL (0.0-0.8) 06/24/24 11:00 Baso # (Auto) 0.0 10^3/uL (0.0-0.1) 06/24/24 11:00 Nucleated RBC % (auto) 0 % 06/24/24 11:00 Nucleated RBCs # 0.0 /100WBC 06/24/24 11:00 PT 14.90 SECONDS (12.1-14.9) 06/24/24 11:00 INR 1.13 (0.8-1.2) 06/24/24 11:00 Sodium 136 mmol/L (136-145) 06/24/24 11:00 Potassium 3.1 mmol/L (3.5-5.1) L 06/24/24 11:00 Chloride 97 mmol/L (98-107) L 06/24/24 11:00 Carbon Dioxide 25 mmol/L (22-29) 06/24/24 11:00 Anion Gap 17.1 (5-19) 06/24/24 11:00 BUN 35 mg/dL (8-23) H 06/24/24 11:00 Creatinine 1.8 mg/dL (0.5-0.9) H 06/24/24 11:00 GFR Calculation 27.9 mL/min (90-130) L 06/24/24 11:00 Glucose 164 mg/dL (65-115) H 06/24/24 11:00 Calculated Osmolality 294 mOsm/kg (285-295) 06/24/24 11:00 Calcium 9.5 mg/dL (8.5-10.5) 06/24/24 11:00 Total Bilirubin 0.3 mg/dL (0.15-1.2) 06/24/24 11:00 AST 20 U/L (0-32) 06/24/24 11:00 ALT 18 U/L (0-33) 06/24/24 11:00 Alkaline Phosphatase 84 U/L (35-105) 06/24/24 11:00 Total Protein 6.7 g/dL (6.6-8.7) 06/24/24 11:00 Albumin 4.0 g/dL (3.5-5.2) 06/24/24 11:00 Globulin 2.7 g/dL (1.3-4.6) 06/24/24 11:00 TSH 1.42 uIU/mL (0.27-4.20) 06/24/24 11:00 Urine Color Yellow (Yellow) 06/24/24 12:44 Urine Appearance Clear (CLEAR) 06/24/24 12:44 Urine pH 5.0 (5-7) 06/24/24 12:44 Ur Specific [place] 1.007 (1.005-1.030) 06/24/24 12:44 Urine Protein Negative (Negative) 06/24/24 12:44 Urine Glucose (UA) Negative (Normal) 06/24/24 12:44 Urine Ketones Negative (Negative) 06/24/24 12:44 Urine Blood Negative (Negative) 06/24/24 12:44 Urine Nitrate Negative (Negative) 06/24/24 12:44 Urine Bilirubin Negative (Negative) 06/24/24 12:44 Urine Urobilinogen 0.2 mg/dL (Negative) 06/24/24 12:44 Ur Leukocyte Esterase 1+ (Negative) A 06/24/24 12:44 Urine RBC 0-4 /hpf (0-2) H 06/24/24 12:44 Urine WBC 5-10 /hpf (0-5) H 06/24/24 12:44 Ur Squamous Epith Cells 0-4 /hpf (0-5) H 06/24/24 12:44 Amorphous Sediment Not Reportable 06/24/24 12:44 Urine Bacteria None /hpf (NONE) 06/24/24 12:44 Urine Mucus None /hpf 06/24/24 12:44 Salicylates < 0.3 mg/dL (3-10) L 06/24/24 11:00 Urine Opiates Screen Negative ng/mL (Negative) 06/24/24 12:44 Acetaminophen < 5.0 ug/mL (10-30) L 06/24/24 11:00 Ur Barbiturates Screen Negative ng/mL (Negative) 06/24/24 12:44 Ur Phencyclidine Scrn Negative ng/mL (Negative) 06/24/24 12:44 Ur Amphetamines Screen Negative ng/mL (Negative) 06/24/24 12:44 U Benzodiazepines Scrn Negative ng/mL (Negative) 06/24/24 12:44 Urine Cocaine Screen Negative ng/mL (Negative) 06/24/24 12:44 U Marijuana (THC) Screen Negative ng/mL (Negative) 06/24/24 12:44 Ethyl Alcohol < 10 mg/dL (0-10) 06/24/24 11:00 Coronavirus (PCR) Negative (Negative) 06/24/24 11:22 Influenza A (PCR) Negative (Negative) 06/24/24 11:22 Influenza Type B (PCR) Negative (Negative) 06/24/24 11:22 RSV (PCR) Negative (Negative) 06/24/24 11:22 All radiology interpretation(s) finalized by discharge Discharge Plan Discharge Patient Disposition: Admitted As Inpatient Admit Provider: Andrey Donald Clinical Impression: Acute confusion, Acute kidney injury, Hearing voices Condition: Stable Coding Level of Care Code ED Machine Clothing Man for Paul Lovelace
[2024-06-24 11:17] LABS: Basophils % 0.3 %; Eosinophils % 0.2 %; Hematocrit 34.6 % (36-47); Lymphocytes # 1.3 10^3/uL (0.8-4.8); Lymphocytes % 14.6 %; Mean Corpuscular HGB Conc 32.7 g/dL (30-55); Mean Corpuscular Volume 88.7 fl (85-98); Mean Platelet Volume 10.9 fL (7.4-10.4); Monocytes # 0.7 10^3/uL (0.2-0.9); Monocytes % 7.7 %; Neutrophils # 6.74 10^3/uL (1.8-7.7); Neutrophils % 76.7 %; Nucleated Red Blood Cells % 0 %; Platelet Count 221 10^3/cmm (157-399); Red Cell Distribution Width 14.6 % (12.1-15.1); White Blood Count 8.79 10^3/uL (3.29-11.43)
[2024-06-24 11:34] LABS: INR 1.13 (0.8-1.2)
[2024-06-24 11:51] LABS: Alanine Aminotransferase 18 U/L (0-33); Alkaline Phosphatase 84 U/L (35-105); Anion Gap 17.1 (5-19); Aspartate Amino Transferase 20 U/L (0-32); Blood Urea Nitrogen 35 mg/dL (8-23); Calcium 9.5 mg/dL (8.5-10.5); Carbon Dioxide 25 mmol/L (22-29); Chloride 97 mmol/L (98-107); Creatinine Clr Calc Pharmacy 40.1074; Globulin 2.7 g/dL (1.3-4.6); Glomerular Filtration Rate 27.9 mL/min (90-130); Glucose 164 mg/dL (65-115); Osmolality Calculated 294 mOsm/kg (285-295); Potassium 3.1 mmol/L (3.5-5.1); Sodium 136 mmol/L (136-145); Thyroid Stimulating Hormone 1.42 uIU/mL (0.27-4.20); Total Bilirubin 0.3 mg/dL (0.15-1.2); Total Protein 6.7 g/dL (6.6-8.7)
[2024-06-24 11:52] LABS: Acetaminophen < 5.0 ug/mL (10-30); Alcohol Level < 10 mg/dL (0-10); Salicylate < 0.3 mg/dL (3-10)
[2024-06-24 12:18] LABS: Covid PCR NEGATIVE (Negative); Influenza A NEGATIVE (Negative); Influenza B NEGATIVE (Negative); Respiratory Syncytial Virus Ce NEGATIVE (Negative)
[2024-06-24 13:05] LABS: Bilirubin Urine Negative (Negative); Blood Urine Negative (Negative); Glucose Urine UA Negative (Normal); Ketones Urine Negative (Negative); Leukocyte Esterase Urine 1+ (Negative); Nitrate Urine Negative (Negative); Protein Urine Negative (Negative); Specific Gravity, Urine 1.007 (1.005-1.030); Urine Appearance Clear (CLEAR); Urine Color Yellow (Yellow); Urobilinogen Urine 0.2 mg/dL (Negative)
[2024-06-24 13:12] LABS: Amphetamines Screen Urine Negative (Negative); Barbiturates Screen Urine Negative (Negative); Benzodiazepines Screen Urine Negative (Negative); Cocaine Screen Urine Negative (Negative); Opiate Screen Urine Negative (Negative); PCP Screen Urine Negative (Negative); THC Screen Urine Negative (Negative)
[2024-06-24 13:22] LABS: UA Manual Slide Review YES; UA Slide Review UA Slide Review Perf
--- NOTE | 2024-06-24 13:23 | PC.NURSE ---
NURSE ENTERED PATIENT ROOM. PATIENT APPEARED TO BE PANICKING ABOUT THE RAJINDER HORSES IN MY LEGS. PATIENT ALSO STATES THAT SHE HAS A CHIP OR SOMETHING IMPLANTED IN MY NOSE FROM THAT SCAN. PATIENT CONTINUES TO RUB FACE. PATIENT PACING AT BEDSIDE. GUARDIAN, KEVIN, PRESENT IN ROOM. PROVIDER NOTIFIED.
[2024-06-24 13:24] LABS: Add Urine Culture? No; Add Urine Microscopic? YES; RBC Urine 0-4 /hpf (0-2); Squamous Epithelial Cell Urine 0-4 /hpf (0-5)
--- NOTE | 2024-06-24 14:03 | P.HP_ITS ---
Providers/Chief Complaint 2 Admitting Physician: Andrey Donald MD Primary Care Provider: Chato Palma MD Chief Complaint: AMS, Hearing things in her head, something in ear History of Present Illness Kathy Frey is a 68 year old female with past medical history of depression, hypothyroidism, type 2 diabetes mellitus, atrial fibrillation who presented to the ER today because of auditory hallucinations. As per the patient she has been hearing things over last few months but got worse since Friday. She also complains of seeing bugs on the nielson specially when she wakes up for last few months. As per her the symptoms started after January. In January she visited her primary care provider with concerns of ykzn-wdb-hywdoip in her legs after which her home dose of Effexor which she has been taking for fevers for depression was weaned off. On review of chart it seems she was taking 150 mg of Effexor before which was weaned off over 2 months. Patient states she has been hearing both male and female voices in both upper ears for last few months. Voices tell her that they are going to kill her, gave shock in her lower extremities. She denies of having any homicidal and suicidal ideations. She denies of having any similar symptoms in the past. For her symptoms have been ongoing since January but on Friday her thought that she had stopped breathing while sleeping after which that called the EMS and since then her symptoms have become more pronounced. She denies of having any nausea, vomiting, chest pain, sick contacts, abdominal pain but has been complaining of diarrhea on and off. She states her COVID symptoms she has not slept well or at all over a month. Only changes in her medications is weaning off Effexor recently in January, increasing her home dose of Lasix because of lower limb swelling and decreasing the dose of metoprolol because of lower limb swelling as well. Patient denies of using any [id number] medications. She denies of having any personal or family history of mental disorders. thinks symptoms are possibly because they feel it is usually sprayed by insecticides though he is not aware of anybody else in the community is having similar symptoms. Patient herself denies any difficulty in swallowing, breathing. Review of Systems 2 General: Reports: 10 or more systems reviewed and unremarkable except in HPI and below Const: Denies: fever(s), chills, body aches, change in appetite, change in weight, malaise, night sweats, diaphoresis, change in sleep pattern, daytime sleepiness or snoring Eyes: Denies: change in vision, blurry vision, photophobia, eye discomfort or eye discharge ENMT: Denies: throat pain, enlarged tonsils, hoarseness, mouth pain, oral sores, dry mouth, tinnitus, nasal congestion or post nasal drip Card: Denies: chest pain, palpitations, irregular heart rhythm, edema, swelling of feet/ankles, lightheadedness, syncope, pre-syncope, dyspnea on exertion, orthopnea, leg pain with exertion or acrocyanosis Resp: Denies: dyspnea, productive cough, non-productive cough, wheezing, stridor, pain on inspiration, change in phlegm color, hemoptysis or chest congestion GI: Denies: abdominal pain, nausea, vomiting, hematemesis, coffee ground emesis, dysphagia, heartburn, diarrhea, constipation, bloating, GI cramping, change in bowel habits, pain on defecation, hematochezia or melena : Denies: flank pain, dysuria, urinary frequency, urinary urgency, urinary hesitancy, nocturia or hematuria Musc: Denies: neck pain, back pain, extremity pain, joint pain, joint swelling, joint redness, joint stiffness or limited range of motion Neuro: Denies: headache(s), numbness in extremities, weakness in extremities, sensory changes, lack of coordination, difficulty walking, frequent falls, dizziness, vertigo, confusion, Slurred speech present, difficulty communicating thoughts or seizure-like activity Psych: Denies: anxiety, depression, mood swings, panic attacks, hopelessness or irritability Endo: Denies: polyuria, polydipsia, tired all the time, cold intolerance, excessive sweating, flushing or heat intolerance Erasmo/Lymph: Denies: easy bruising or easy bleeding All/Imm: Denies: tongue swelling, facial swelling or acute wheezing Medications/Allergies Home Medications Medication Instructions Recorded Confirmed Last Taken Type ascorbic acid (vitamin C) 1,000 mg 1,000 mg PO QAM 07/17/21 06/24/24 06/24/24 History tablet (Vitamin C) multivitamin 1 tab PO QAM 07/17/21 06/24/24 06/24/24 History ferrous sulfate 325 mg (65 mg 325 mg PO QAM 04/16/22 06/24/24 06/24/24 History iron) tablet (iron) magnesium oxide 400 mg (241.3 mg 400 mg PO DAILY 03/13/23 06/24/24 06/24/24 History magnesium) tablet albuterol sulfate 90 mcg/actuation 2 puff inhalation Q4H PRN 07/24/23 06/24/24 Unknown Rx aerosol inhaler (Ventolin HFA) Shortness Of Breath #8.5 grams apixaban 2.5 mg tablet 2.5 mg PO BID #180 tabs 01/07/24 06/24/24 06/24/24 Rx mecobalamin (vitamin B12) 1,000 1,000 mcg PO DAILY #30 tabs 01/07/24 06/24/24 Unknown Rx mcg chewable tablet allopurinol 300 mg tablet 300 mg PO DAILY 06/24/24 06/24/24 06/24/24 History fluticasone propionate 50 2 spray intranasal DAILY 06/24/24 06/24/24 06/24/24 History mcg/actuation nasal spray,suspension furosemide 40 mg tablet 40 mg PO DAILY swelling 06/24/24 06/24/24 06/24/24 History glimepiride 4 mg tablet 4 mg PO BID 06/24/24 06/24/24 06/24/24 History hydrochlorothiazide 25 mg tablet 25 mg PO DAILY 06/24/24 06/24/24 06/24/24 History levothyroxine 25 mcg tablet 25 mcg PO DAILY 06/24/24 06/24/24 06/24/24 History metformin 850 mg tablet 850 mg PO BID 06/24/24 06/24/24 06/24/24 History metoprolol tartrate 50 mg tablet 25 mg PO DAILY 06/24/24 06/24/24 06/24/24 History omeprazole 20 mg capsule,delayed 20 mg PO DAILY 06/24/24 06/24/24 06/24/24 History release pioglitazone 15 mg tablet 15 mg PO DAILY 06/24/24 06/24/24 06/24/24 History Allergies Allergy/AdvReac Type Severity Reaction Status Date / Time morphine Allergy ALGY-formic Verified 04/08/24 11:31 ation ofloxacin [From Floxin] Allergy ADR-Anxiety Verified 04/08/24 11:31 red dye Allergy vomit Verified 04/08/24 11:31 Kdicsil-FSO-DvG Reductase AdvReac myalgias Verified 04/08/24 11:31 Inhibitor PFSH Acute 2 PFSH: Medical History (Updated 06/24/24 @ 16:01 by Andrey Donald MD) Anticoagulation adequate with anticoagulant therapy Morbid obesity Arthritis Anemia GERD (gastroesophageal reflux disease) / Hiatal hernia Hyperlipidemia Hypertension Gout Depression Diabetes Cervical disc disease Asthma Surgical History History of umbilical hernia repair (04/18/22) History of esophagogastroduodenoscopy (EGD) Hx of cholecystectomy Hx of colonoscopy 2018 or 2019 History of carpal tunnel release Right Elbow dislocation Right History of bilateral salpingo-oophorectomy (BSO) History of hysterectomy Status post bilateral knee replacements Family History Other Cancer Diabetes Social History Smoking and tobacco/nicotine status: unknown if used tobacco/nicotine Alcohol intake: never Vitals/I&O/Wt Last Vital Signs Temp 98.5 F 06/24/24 10:21 Pulse 73 06/24/24 11:32 Resp 17 06/24/24 10:21 BP 163/80 06/24/24 11:32 Pulse Ox 97 06/24/24 11:32 O2 Del Method Room Air 06/24/24 11:32 Weight last 48 hrs Weight 122.924 kg Data 06/24/24 11:00 06/24/24 11:00 A&P Assessment and plan (1) AMS (altered mental status): (2) Auditory hallucination: (3) Acute kidney injury: (4) Depression: (5) Hypertension: (6) Atrial fibrillation: (7) Hyperlipidemia: (8) Anticoagulation adequate with anticoagulant therapy: (9) Morbid obesity: (10) Diabetes: Plan Altered mental status with auditory hallucinations. No suicidal or homicidal ideation. Unknown etiology. Could be in setting of liver disorder, STACY, withdrawal, medication or changes in her medications recently, in setting of possible stroke, hypoxia or hypercapnia. Only changes in medications as per the patient is weaning of Effexor. ABG ruled out hypercapnia, showed mild hypoxia though patient is saturating well on room air. Blood work and urinalysis negative for any signs of infection. Procalcitonin negative. LFTs within limits, patient does have mild acute kidney injury and hypokalemia. TSH found to be within normal limits. Vitamin B12 levels awaited. Check blood culture, lactate level, bacterial antigen. CT head negative for any acute abnormality. Check MRI brain. Patient is on oral hypoglycemics. Though unlikely but in setting of STACY could be in the setting of hypoglycemia. Blood pressure on presentation to the ER slightly elevated. Cannot rule out hypertensive encephalopathy. Plan: IV fluids with normal saline at 75 cc/h. Medical reconciliation done for nephrotoxic drugs. Check urine lites, urine creatinine, urine eosinophils. No concerns for infection for now. Hold off on IV antibiotics. Stop oral hypoglycemics. Start on insulin sliding scale low-dose protocol. Stop diuretics. Replace potassium 40 mg orally. Await MRI results with without contrast. Monitor blood pressures. Goal blood pressure less than 140/90 mmHg. Patient does have history of A-fib. Continue with home dose of metoprolol. Telemetry. Sitter at bedside. Will consult psychiatry. Discussed in detail with Dr. Domingo. He suggests starting low-dose risperidone 0.5 mg nightly. Restart Effexor at a lower dose of 37.5 mg daily. Will await further recommendations. Did discuss with the family regarding possibility of above-cited etiologies. Also discussed if both radiologist are ruled out there is a chance of psychiatric disorder. Continue other chronic home medications including Eliquis 2.5 mg twice daily, vitamin B12 supplementation, iron supplementation, levothyroxine, metoprolol Carb consistent diet Full code Protonix OPD prophylaxis Eliquis will be sufficient for DVT prophylaxis Attestations 2 Medical Necessity Statement*: Requires admission for more than 2 midnights for further evaluation and management of auditory hallucinations while organic causes are ruled out, acute kidney injury Diagnoses AMS (altered mental status) R41.82 Auditory hallucination R44.0 Acute kidney injury N17.9 Depression F32.A Hypertension I10 Atrial fibrillation I48.91 Hyperlipidemia E78.5 Anticoagulation adequate with anticoagulant therapy Z79.01 Morbid obesity E66.01 Diabetes E11.9
[2024-06-24 14:15] LABS: ABG PCO2 38.2 mmHg (35-45); ABG PH Result 7.43 (7.35-7.45); Alveolar-Arterial Oxygen Gradi 4.3 mmHg (5-10); Arterial Blood Gas Hematocrit 37.2 % (37-47); Base Excess ABG 0.7 mmol/L (-2.0-2.0); Blood Gas Operator Identificat AMH; Blood Gas Sample Site Brachial, left; Blood Gas Sample Type Arterial; Carboxyhemoglobin < 0.3 %THgb (0.4-20.1); HGB O2 Sat 92.6 % (95-100); Ionized Calcium Level - ABG 1.2 mmol/L (1.1-1.4); Methemoglobin 0.3 % (0.4-1.5); Oxygen Device ROOM AIR; Oxygen Saturation ABG 92.8; PO2 FiO2 Ratio Arterial Blood 328; Potassium Level - ABG 2.9 mmol/L (3.5-5.0); Total Hemoglobin 12.2 g/dL (12-16)
[2024-06-24] MEDS: LORazepam 2 mg/mL INJ 1 mL 0.5 MG IVP (14:20)
[2024-06-24] MEDS: sodium chloride 0.9% 1,000 ML 999 ML IV (14:21)
[2024-06-24 15:12] LABS: D Dimer 0.44 ug/mLFEU (0-0.59)
[2024-06-24 15:19] LABS: Procalcitonin 0.11 ng/mL (0-0.5)
[2024-06-24 15:30] LABS: Iron 55 ug/dL (37-145); Percent Saturation 17.1 % (20-50); Total Iron Binding Capacity 321 mcg/dl; Unsaturated Iron Binding 266 ug/dL (112-347)
[2024-06-24 16:27] LABS: Ammonia 22 umol/L (11-51)
[2024-06-24 16:41] LABS: Potassium, Radom Urine 20 mmol/L; Urine Creatinine 38 mg/dL (28-217); Urine Random Chloride 82 mmol/L; Urine Random Sodium 67 mmol/L
[2024-06-24 16:55] LABS: Glucose Point of Care 120 mg/dL (70-110)
[2024-06-24] MEDS: sodium chloride 0.9% 1,000 ML 75 ML IV (16:59)
[2024-06-24] MEDS: apixaban 5 mg Tablet 2.5 MG PO (17:00)
[2024-06-24] MEDS: potassium chloride ER 20 mEq Tablet 40 MEQ PO (17:00)
[2024-06-24 18:36] LABS: Eosinophil Urine No Eosinophils Seen
--- NOTE | 2024-06-24 19:12 | PC.NURSE ---
Family member sitting at bedside and states that he will be staying the night. Family member educated to notify me if he needs to leave the room.
[2024-06-24 20:27] LABS: Glucose Point of Care 165 mg/dL (70-110)
[2024-06-24] MEDS: risperiDONE 0.25 mg Tablet PO (21:54)
--- NOTE | 2024-06-24 22:02 | PC.NURSE ---
Addendum entered by Lizzy Rodriguez RN 06/24/24 22:13: Patient states it was a capillary that leaked and sealed itself. Original Note: at bedside states that patient has a history of a bleed in her head.
[2024-06-25] VITALS: BP 147/79; PULSE 75; RESP 17; TEMP 36.8; O2SAT 94
[2024-06-25 04:00] VITALS: BP 108/62; PULSE 69; RESP 18; TEMP 37.1; O2SAT 91
[2024-06-25 04:56] LABS: Basophils % 0.3 %; Eosinophils # 0.1 10^3/uL (0.0-0.8); Eosinophils % 1.1 %; Hematocrit 31.4 % (36-47); Lymphocytes # 1.5 10^3/uL (0.8-4.8); Lymphocytes % 23.8 %; Mean Corpuscular HGB Conc 30.9 g/dL (30-55); Mean Corpuscular Hemoglobin 28.6 pg (27-33); Mean Corpuscular Volume 92.6 fl (85-98); Mean Platelet Volume 11.2 fL (7.4-10.4); Monocytes # 0.5 10^3/uL (0.2-0.9); Monocytes % 8.3 %; Neutrophils # 4.08 10^3/uL (1.8-7.7); Neutrophils % 66.2 %; Nucleated Red Blood Cells % 0 %; Platelet Count 175 10^3/cmm (157-399); Red Blood Count 3.39 10^6/uL (3.85-5.65); Red Cell Distribution Width 14.7 % (12.1-15.1); White Blood Count 6.17 10^3/uL (3.29-11.43)
[2024-06-25] MEDS: ferrous sulfate EC 325 mg Tablet PO (05:02)
[2024-06-25] MEDS: sodium chloride 0.9% 1,000 ML 75 ML IV (05:02)
--- NOTE | 2024-06-25 05:05 | PC.NURSE ---
Patient states I'm not hearing the voices this morning. Patient states that until tonight, she had not slept well for about a month.
[2024-06-25 05:18] LABS: Alanine Aminotransferase 14 U/L (0-33); Albumin Level 3.3 g/dL (3.5-5.2); Alkaline Phosphatase 77 U/L (35-105); Aspartate Amino Transferase 18 U/L (0-32); Blood Urea Nitrogen 29 mg/dL (8-23); Calcium 8.7 mg/dL (8.5-10.5); Carbon Dioxide 23 mmol/L (22-29); Chloride 104 mmol/L (98-107); Creatinine Clr Calc Pharmacy 56.6153; Globulin 2.3 g/dL (1.3-4.6); Glomerular Filtration Rate 40.6 mL/min (90-130); Glucose 202 mg/dL (65-115); Magnesium 1.5 mg/dL (1.7-2.3); Osmolality Calculated 304 mOsm/kg (285-295); Sodium 141 mmol/L (136-145); Total Bilirubin 0.2 mg/dL (0.15-1.2); Total Protein 5.6 g/dL (6.6-8.7)
[2024-06-25 06:00] VITALS: PULSE 74
[2024-06-25 06:01] LABS: Glucose Point of Care 173 mg/dL (70-110)
[2024-06-25 07:04] VITALS: BP 149/78; PULSE 79; RESP 16; TEMP 36.6; O2SAT 96
[2024-06-25] MEDS: insulin lispro 100 unit/1 mL SUBCUT (09:07)
[2024-06-25] MEDS: apixaban 5 mg Tablet 2.5 MG PO (09:07)
[2024-06-25] MEDS: cyanocobalamin 1,000 mcg Tablet 1000 MCG PO (09:07)
[2024-06-25] MEDS: levothyroxine 25 mcg Tablet PO (09:07)
[2024-06-25] MEDS: pantoprazole DR 40 mg Tablet PO (09:07)
[2024-06-25] MEDS: venlafaxine ER (24HR) 37.5 mg Capsule PO (09:08)
[2024-06-25] MEDS: metoprolol tartrate 25 mg Tablet PO (09:08)
--- NOTE | 2024-06-25 09:39 | PC.CHAP ---
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 tailings dam pumper visit [] Patient/Family/Request visit [] Outpatient visit [] Follow-up visit [] Physician referral [] Code/Alert [x] Routine visit [] Staff referral [] Actively dying [] Patient sleeping [] Family support [] [] Out of room [] Palliative care [] [] Receiving care in room [] Pre-surgical visit [] Trauma [] Long length of stay [] ICU visit [X] Other: Declined Prayer Relational/Emotional Strength [] Patient feels connected with others/family/visitors/staff [x] Distress [] Loneliness/isolation [] Abandonment Spirituality of Patient [] Person of Lakeisha [] Attends Islam of their [place] [] Believes in Prayer [] Reads Bible or Buddhist materials [x] There are Spiritual issues to be addressed Scaffold Worker Interventions [] Prayer [x] Active listening [] Non-anxious presence [] Spiritual/emotional support [] Crisis/trauma care [] Spiritual counseling [] Bereavement support [] Provided bereavement packet [] Provided Bible/devotional materials [] Provided toy/stuffed animal, coloring book to patient or family member [] Provided Communion [] Anointing/[place] [] Salvation [] Completed spiritual assessment [] Other: Impact on Illness or Injury [] Angry [] Fearful [x] Anxious [] Often cries [] Exhaustion [] Unable to work [] Unable to attend oriental orthodox [] Unable to walk/stand [] Unable to read [] Unable to drive [] Unable to eat/drink [] Unable to sleep [] Unable to be with family [] Patient intubated [] Other: Summary Was willing to talk Non- believing Time spent with patient 5 min
[2024-06-25 11:12] VITALS: BP 132/77; PULSE 74; RESP 15; TEMP 36.7; O2SAT 97
[2024-06-25] MEDS: magnesium sulfate premix 1 GM/100 ML PIGGYBACK IV (11:15)
[2024-06-25] MEDS: potassium chloride ER 20 mEq Tablet 40 MEQ PO (11:15)
--- NOTE | 2024-06-25 11:27 | P.DS_ITS ---
Discharge Providers Date of Admission: 06/24/24 15:08 Date of Discharge: June 25, 2024 Attending Provider at Admission: Andrey Donald MD Attending Provider at Discharge: Andrey Donald MD Primary Care Provider: Chato Palma MD Diagnoses at Discharge Discharge Diagnosis (1) AMS (altered mental status): Status: Acute (2) Auditory hallucination: Status: Acute (3) Acute kidney injury: Status: Acute (4) Depression: Status: Acute (5) Hypertension: Status: Acute (6) Atrial fibrillation: Status: Acute (7) Hyperlipidemia: Status: Acute (8) Anticoagulation adequate with anticoagulant therapy: Status: Acute (9) Morbid obesity: Status: Acute (10) Diabetes: Status: Acute Reason for Visit Reason for Visit: AMS, Hearing things in her head, something in ear Hospital Course Hospital Course Kathy Frey is a 68 year old female with past medical history of depression, hypothyroidism, type 2 diabetes mellitus, atrial fibrillation who presented to the ER today because of auditory hallucinations. As per the patient she has been hearing things over last few months but got worse since Friday. She also complains of seeing bugs on the niel[place] specially when she wakes up for last few months. As per her the symptoms started after January. In January she visited her primary care provider with concerns of [id number] in her legs after which her home dose of Effexor which she has been taking for fevers for depression was weaned off. On review of chart it seems she was taking 150 mg of Effexor before which was weaned off over 2 months. Patient states she has been hearing both male and female voices in both upper ears for last few months. Voices tell her that they are going to kill her, gave shock in her lower extremities. She denies of having any homicidal and suicidal ideations. She denies of having any similar symptoms in the past. For her symptoms have been ongoing since January but on Friday her thought that she had stopped breathing while sleeping after which that called the EMS and since then her symptoms have become more pronounced. She denies of having any nausea, vomiting, chest pain, sick contacts, abdominal pain but has been complaining of diarrhea on and off. She states her COVID symptoms she has not slept well or at all over a month. Only changes in her medications is weaning off Effexor recently in January, increasing her home dose of Lasix because of lower limb swelling and decreasing the dose of metoprolol because of lower limb swelling as well. Patient denies of using any [id number] medications. She denies of having any personal or family history of mental disorders. thinks symptoms are possibly because they feel it is usually sprayed by insecticides though he is not aware of anybody else in the community is having similar symptoms. Patient herself denies any difficulty in swallowing, breathing. Patient was admitted to the hospital further evaluation and management. She was started on IV hydration with concerns for mild acute kidney injury on admission. All the other organic reasons for possible hallucinations were ruled out. MRI was offered to the patient though she declined as she is claustrophobic. Care were discussed in detail with inpatient psychiatric department who advised patient to be started on low-dose Effexor every morning and Risperdal at night. After starting of risperidone patient was able to sleep well and her symptoms of auditory and visual hallucinations resolved. Patient was offered to follow-up with psychiatric team or behavioral health care clinic as an outpatient but she declined. Patient was also offered to monitor improvement 4 more hours. He requested to be discharged. She has been discharged hemodynamically stable condition on oral Risperdal 0.25 mg nightly, Effexor 37.5 mg every morning. She is also advised to change her Lasix to as needed rather than daily intake. She is advised to maintain her oral intake with at least 2 to 2-1/2 L of liquid daily. Discharge plan were discussed in detail with patient and spouse at bedside. All the questions were answered. Physical Exam Narrative: General: No acute distress, AO x3 HEENT: PERRLA, pupils bilaterally equal and reactive Chest: Normal vesicular breath sounds, no added sounds, equal good air entry bilaterally CVS: S1-S2 regular, no murmurs, no tachycardia, no gallops, no rubs Abdomen: Soft, nontender, no organomegaly, bowel sounds present Neuro: No focal deficits, no facial deformity, AO x3, power 5/5 in all limbs Discharge Data Studies Completed and Pending Completed Studies During Hospitalization Category Date Time Status CT head wo con* [id number] Stat Cat Scan 06/24/24 10:25 Completed XR chest 1V portable [id number] Stat Exams 06/24/24 10:25 Completed Pending at discharge Category Date Time Status Bacterial Antigen Stat Lab 06/24/24 12:44 Received Blood Culture Stat Lab 06/24/24 15:48 Results Complete Blood Count w/Auto AM LABS Lab 06/26/24 04:00 Ordered Comprehensive Metabolic Panel AM LABS Lab 06/26/24 04:00 Ordered Radiology Impressions Chest X-Ray 06/24/24 10:25 IMPRESSION: 1. No acute cardiopulmonary finding. Head CT 06/24/24 10:25 IMPRESSION: 1. No acute intracranial hemorrhage or edema. 2. Stable noncontrast head CT since 11/01/2018. Laboratory Results WBC 6.17 10^3/uL (3.29-11.43) 06/25/24 04:09 RBC 3.39 10^6/uL (3.85-5.65) L 06/25/24 04:09 Hgb 9.70 g/dL (11.27-16.99) L 06/25/24 04:09 Hct 31.4 % (36-47) L 06/25/24 04:09 MCV 92.6 fl (85-98) 06/25/24 04:09 MCH 28.6 pg (27-33) 06/25/24 04:09 MCHC 30.9 g/dL (30-55) D 06/25/24 04:09 RDW 14.7 % (12.1-15.1) 06/25/24 04:09 Plt Count 175 10^3/cmm (157-399) 06/25/24 04:09 MPV 11.2 fL (7.4-10.4) H 06/25/24 04:09 Neut % (Auto) 66.2 % 06/25/24 04:09 Lymph % (Auto) 23.8 % 06/25/24 04:09 [place] % (Auto) 8.3 % 06/25/24 04:09 Eos % (Auto) 1.1 % 06/25/24 04:09 Baso % (Auto) 0.3 % 06/25/24 04:09 Neut # (Auto) 4.08 10^3/uL (1.8-7.7) 06/25/24 04:09 Lymph # (Auto) 1.5 10^3/uL (0.8-4.8) 06/25/24 04:09 [place] # (Auto) 0.5 10^3/uL (0.2-0.9) 06/25/24 04:09 Eos # (Auto) 0.1 10^3/uL (0.0-0.8) 06/25/24 04:09 Baso # (Auto) 0.0 10^3/uL (0.0-0.1) 06/25/24 04:09 Nucleated RBC % (auto) 0 % 06/25/24 04:09 Nucleated RBCs # 0.0 /100WBC 06/25/24 04:09 PT 14.90 SECONDS (12.1-14.9) 06/24/24 11:00 INR 1.13 (0.8-1.2) 06/24/24 11:00 D-Dimer 0.44 ug/mLFEU (0-0.59) 06/24/24 11:00 Specimen Type Arterial 06/24/24 14:03 Sample Site Brachial, left 06/24/24 14:03 ABG pH 7.43 (7.35-7.45) 06/24/24 14:03 ABG pCO2 38.2 mmHg (35-45) 06/24/24 14:03 ABG pO2 69.0 mmHg (80.0-100.0) L 06/24/24 14:03 ABG PO2/FiO2 Ratio 328 06/24/24 14:03 ABG HCO3 25.0 mmol/L (22-26) 06/24/24 14:03 ABG O2 Saturation 92.8 06/24/24 14:03 ABG Base Excess 0.7 mmol/L (-2.0-2.0) 06/24/24 14:03 Kee Test N/a 06/24/24 14:03 A-a O2 Gradient 4.3 mmHg (5-10) L 06/24/24 14:03 Hematocrit 37.2 % (37-47) 06/24/24 14:03 Hgb O2 Saturation 92.6 % (95-100) L 06/24/24 14:03 Carboxyhemoglobin < 0.3 %THgb (0.4-20.1) L 06/24/24 14:03 Methemoglobin 0.3 % (0.4-1.5) L 06/24/24 14:03 Total Hemoglobin 12.2 g/dL (12-16) 06/24/24 14:03 Sodium 137.0 mmol/L (131-143) 06/24/24 14:03 Potassium 2.9 mmol/L (3.5-5.0) L 06/24/24 14:03 Glucose 151.0 mg/dL (70-115) H 06/24/24 14:03 Ionized Calcium 1.2 mmol/L (1.1-1.4) 06/24/24 14:03 O2 Delivery Device Room air 06/24/24 14:03 FiO2 21.0 % 06/24/24 14:03 Events Manager ID Amh 06/24/24 14:03 Sodium 141 mmol/L (136-145) 06/25/24 04:09 Potassium 3.0 mmol/L (3.5-5.1) L 06/25/24 04:09 Chloride 104 mmol/L (98-107) 06/25/24 04:09 Carbon Dioxide 23 mmol/L (22-29) 06/25/24 04:09 Anion Gap 17.0 (5-19) 06/25/24 04:09 BUN 29 mg/dL (8-23) H 06/25/24 04:09 Creatinine 1.3 mg/dL (0.5-0.9) H 06/25/24 04:09 GFR Calculation 40.6 mL/min (90-130) L 06/25/24 04:09 Glucose 202 mg/dL (65-115) H 06/25/24 04:09 POC Glucose 173 mg/dL (70-110) H 06/25/24 05:51 Calculated Osmolality 304 mOsm/kg (285-295) H 06/25/24 04:09 Lactic Acid 2.0 mmol/L (0.5-2.2) 06/24/24 15:50 Calcium 8.7 mg/dL (8.5-10.5) 06/25/24 04:09 Phosphorus 3.0 mg/dL (2.5-4.5) 06/25/24 04:09 Magnesium 1.5 mg/dL (1.7-2.3) L 06/25/24 04:09 Iron 55 ug/dL (37-145) 06/24/24 11:00 TIBC 321 mcg/dl 06/24/24 11:00 % Saturation 17.1 % (20-50) L 06/24/24 11:00 Unsat Iron Binding 266 ug/dL (112-347) 06/24/24 11:00 Total Bilirubin 0.2 mg/dL (0.15-1.2) 06/25/24 04:09 AST 18 U/L (0-32) 06/25/24 04:09 ALT 14 U/L (0-33) 06/25/24 04:09 Alkaline Phosphatase 77 U/L (35-105) 06/25/24 04:09 Ammonia 22 umol/L (11-51) 06/24/24 15:50 Total Protein 5.6 g/dL (6.6-8.7) L 06/25/24 04:09 Albumin 3.3 g/dL (3.5-5.2) L 06/25/24 04:09 Globulin 2.3 g/dL (1.3-4.6) 06/25/24 04:09 Procalcitonin 0.10 ng/mL (0-0.5) 06/25/24 04:09 TSH 1.42 uIU/mL (0.27-4.20) 06/24/24 11:00 TSH Cancelled 06/24/24 11:00 Urine Color Yellow (Yellow) 06/24/24 12:44 Urine Appearance Clear (CLEAR) 06/24/24 12:44 Urine pH 5.0 (5-7) 06/24/24 12:44 Ur Specific Switchback 1.007 (1.005-1.030) 06/24/24 12:44 Urine Protein Negative (Negative) 06/24/24 12:44 Urine Glucose (UA) Negative (Normal) 06/24/24 12:44 Urine Ketones Negative (Negative) 06/24/24 12:44 Urine Blood Negative (Negative) 06/24/24 12:44 Urine Nitrate Negative (Negative) 06/24/24 12:44 Urine Bilirubin Negative (Negative) 06/24/24 12:44 Urine Urobilinogen 0.2 mg/dL (Negative) 06/24/24 12:44 Ur Leukocyte Esterase 1+ (Negative) A 06/24/24 12:44 Urine RBC 0-4 /hpf (0-2) H 06/24/24 12:44 Urine WBC 5-10 /hpf (0-5) H 06/24/24 12:44 Ur Eosinophil Smear Not Reportable 06/24/24 12:44 Ur Squamous Epith Cells 0-4 /hpf (0-5) H 06/24/24 12:44 Amorphous Sediment Not Reportable 06/24/24 12:44 Urine Bacteria None /hpf (NONE) 06/24/24 12:44 Urine Mucus None /hpf 06/24/24 12:44 Urine Eosinophils No eosinophils seen 06/24/24 12:44 Ur Random Sodium 67 mmol/L 06/24/24 12:44 Ur Random Potassium 20 mmol/L 06/24/24 12:44 Ur Random Chloride 82 mmol/L 06/24/24 12:44 Urine Creatinine 38 mg/dL (28-217) 06/24/24 12:44 Salicylates < 0.3 mg/dL (3-10) L 06/24/24 11:00 Urine Opiates Screen Negative ng/mL (Negative) 06/24/24 12:44 Acetaminophen < 5.0 ug/mL (10-30) L 06/24/24 11:00 Ur Barbiturates Screen Negative ng/mL (Negative) 06/24/24 12:44 Ur Phencyclidine Scrn Negative ng/mL (Negative) 06/24/24 12:44 Ur Amphetamines Screen Negative ng/mL (Negative) 06/24/24 12:44 U Benzodiazepines Scrn Negative ng/mL (Negative) 06/24/24 12:44 Urine Cocaine Screen Negative ng/mL (Negative) 06/24/24 12:44 U Marijuana (THC) Screen Negative ng/mL (Negative) 06/24/24 12:44 Ethyl Alcohol < 10 mg/dL (0-10) 06/24/24 11:00 Coronavirus (PCR) Negative (Negative) 06/24/24 11:22 Influenza A (PCR) Negative (Negative) 06/24/24 11:22 Influenza Type B (PCR) Negative (Negative) 06/24/24 11:22 RSV (PCR) Negative (Negative) 06/24/24 11:22 Vitals Last Vital Signs Temp 97.8 F 06/25/24 07:04 Pulse 79 06/25/24 07:04 Resp 16 06/25/24 07:04 BP 149/78 06/25/24 07:04 Pulse Ox 96 06/25/24 07:04 O2 Del Method Room Air 06/25/24 07:04 Discharge Plan Discharge Patient Disposition: Home Condition: Stable Prescriptions: New venlafaxine 37.5 mg Capsule,Extended Release 24hr 37.5 mg PO DAILY Qty: 30 0RF risperidone 0.25 mg Tablet 0.25 mg PO 2100 Qty: 30 0RF Continued magnesium oxide 400 mg (241.3 mg magnesium) tablet 400 mg PO DAILY apixaban 2.5 mg tablet 2.5 mg PO BID Qty: 180 3RF mecobalamin (vitamin B12) 1,000 mcg tablet,chewable 1,000 mcg PO DAILY Qty: 30 11RF albuterol sulfate [Ventolin HFA] 90 mcg/actuation HFA aerosol inhaler 2 puff INHALATION Q4H PRN (Reason: Shortness Of Breath) Qty: 8.5 11RF multivitamin Tablet 1 tab PO QAM ascorbic acid (vitamin C) [Vitamin C] 1,000 mg Tablet 1,000 mg PO QAM levothyroxine 25 mcg tablet 25 mcg PO DAILY pioglitazone 15 mg tablet 15 mg PO DAILY glimepiride 4 mg tablet 4 mg PO BID metoprolol tartrate 50 mg tablet 25 mg PO DAILY omeprazole 20 mg capsule,delayed release(DR/EC) 20 mg PO DAILY allopurinol 300 mg tablet 300 mg PO DAILY hydrochlorothiazide 25 mg tablet 25 mg PO DAILY fluticasone propionate 50 mcg/actuation spray,suspension 2 spray intranasal DAILY ferrous sulfate [iron] 325 mg (65 mg iron) Tablet 325 mg PO QAM Changed furosemide 40 mg tablet 40 mg PO DAILY PRN (Reason: swelling) Qty: 10 0RF Discontinued metformin 850 mg tablet 850 mg PO BID Discharge Orders: Discharge Order (Routine); Ordered 06/25/24 Ordered By: Andrey Donald Referrals: Chato Palma MD [Primary Care Provider] - 4-7 days (We have notified your physician's clinic of the need for a follow-up appointment to be scheduled. If you have not heard from them within the next 2 business days, please call them directly. ) Discharge Diet: Cardiac Discharge Activity: Resume usual activity and Increase activity as tolerated Patient Instructions: Risperidone (By mouth), Venlafaxine (By mouth), Altered Mental Status (GEN), Hallucinations (DC), Opioid Safety Activity Restrictions/Additional Instructions: Restart Effexor at 37.5 mg every morning. Take Risperdal 0.25 mg every night. Do not take Lasix daily for now. Only take it as needed for lower limb swelling. Maintain your oral intake with at least 2 to 2-1/2 L of liquid daily. Discharge Attestations Time Spent in Discharge Care*: greater than 30 min Specific Discharge Activities: educating patient, educating and/or supporting family/caregiver, discussing with pcp/other providers, discussing with test case developer/social workers/dc planners, documenting/other paperwork and evaluating patient/reviewing data Status at Discharge: Cognitive status at discharge: cognitively intact , Behavioral status at discharge: cooperative and can be uncooperative , Functional status at discharge: independent ambulation , Overall status at discharge: patient is back to baseline Quality Metrics Clinical Quality Measures [ No reported AMI, CVA or VTE this stay] Coding Level of Care Code 65738 Total time (in minutes) for Discharge: 60 Diagnoses AMS (altered mental status) R41.82 Auditory hallucination R44.0 Acute kidney injury N17.9 Depression F32.A Hypertension I10 Atrial fibrillation I48.91 Hyperlipidemia E78.5 Anticoagulation adequate with anticoagulant therapy Z79.01 Morbid obesity E66.01 Diabetes E11.9
[2024-06-25 11:35] LABS: Glucose Point of Care 176 mg/dL (70-110)
--- NOTE | 2024-06-25 11:40 | PC.NURSE ---
Patient is refusing to see DR. Rees. Patient would like to be discharged.
[2024-06-25 12:28] VITALS: BP 132/77; PULSE 74; RESP 15; TEMP 36.7; O2SAT 97
--- NOTE | 2024-06-25 12:31 | PC.NURSE ---
magnesium pt refused 1/2 of her magesium, pt was educated in the need to finish but she still refused the rest. pt also refused the 2nd dose of kcl.
== END 2024-06-25 12:30 | disposition home or self-care (01) | DRG 683 ==
LOC: ER 13:41 → MEDSURG 14:03
PROVIDERS: Admitting Provider Student in an Organized Health Care Education/Training Program; Emergency Provider Emergency Medicine; PCP Family Medicine; Visit Provider Student in an Organized Health Care Education/Training Program
DX: N17.9 Acute kidney failure, unspecified (principal); R44.0 Auditory hallucinations; Z68.41 Body mass index [BMI] 40.0-44.9, adult; F32.A Depression, unspecified; E66.01 Morbid (severe) obesity due to excess calories; K21.9 Gastro-esophageal reflux disease without esophagitis; E78.5 Hyperlipidemia, unspecified; I10 Essential (primary) hypertension; M10.9 Gout, unspecified; E11.9 Type 2 diabetes mellitus without complications; J45.909 Unspecified asthma, uncomplicated; Z96.653 Presence of artificial knee joint, bilateral; E03.9 Hypothyroidism, unspecified; I48.91 Unspecified atrial fibrillation; F40.240 Claustrophobia; Z79.51 Long term (current) use of inhaled steroids; Z79.84 Long term (current) use of oral hypoglycemic drugs; Z79.01 Long term (current) use of anticoagulants
CPT/HCPCS: 0241U; 36415; 36416; 36600; 70450; 71045; 80051; 80053; 80306; 80307; 81001; 82140; 82330; 82436; 82570; 82805; 82962; 83540; 83550; 83605; 83735; 84100; 84133; 84145; 84300; 84443; 85025; 85378; 85610; 85999; 86403; 87040; 93005; 94664; 96372; J1815; J2060; J3475; J7030

== ENCOUNTER 2024-06-28 21:10 | Observation (INO) | payer MEDICARE, SELFPAY ==
[2024-06-28 21:13] VITALS: BMI 39.1
--- NOTE | 2024-06-28 21:19 | CTR_ITS ---
PROCEDURE INFORMATION: Exam: CT Head Without Contrast Exam date and time: 06/28/2024 9:33 PM Age: 68 years old Clinical indication: Altered mental status/memory loss; Confusion or disorientation; Additional info: Encephalopathy, altered mental status TECHNIQUE: Imaging protocol: Computed tomography of the head without contrast. Radiation optimization: All CT scans at this facility use at least one of these dose optimization techniques: automated exposure control; mA and/or kV adjustment per patient size (includes targeted exams where dose is matched to clinical indication); or iterative reconstruction. COMPARISON: CT head wo con* [id number] 06/24/2024 12:13 PM RADIATION DOSE METRICS: Total DLP (mGy-cm): 1145 FINDINGS: Brain: No evidence of intra-axial or extra-axial hemorrhage. No mass effect or midline shift. Breaux-white differentiation is maintained. Calcification noted in the right cerebellar hemisphere. Basilar cisterns are patent. Partially empty sella. Cerebral ventricles: No hydrocephalus. Paranasal sinuses: The visualized paranasal sinuses are well aerated. Mastoid air cells: The visualized mastoids and middle ears are clear. Bones: Calvarium is intact. No evidence of acute fracture. Soft tissues: No gross soft tissue abnormality. CT/CT head wo con* [id number] IMPRESSION: 1. No acute intracranial abnormality.
--- NOTE | 2024-06-28 21:19 | ECG_ITS ---
[facility] Test Date: 2024-06-28 Pat Name: Kathy Frey Department: Room: Gender: Female Home Appliance Technician: : [id number] Requested By: Agustina Dangelo Order Number: [id number] Reese MD: Ayesha Smith M.D. Measurements Intervals Bruni Rate: 113 P: 41 [place]: 177 QRS: -5 QRSD: 89 T: 61 QT: 311 QTc: 428 Interpretive Statements SINUS TACHYCARDIA POSSIBLE LEFT ATRIAL ENLARGEMENT [-0.1mV P-WAVE IN V1/V2] LOW QRS VOLTAGE IN PRECORDIAL LEADS [QRS DEFLECTION < 1.0 mV IN CHEST LEADS] POSSIBLE ANTERIOR MYOCARDIAL INFARCTION , OF INDETERMINATE AGE [30 ms Q WAVE IN V3/V4, OR R < 0.2 mV IN V4] Compared to ECG 06/24/2024 11:23:36 Low QRS voltage now present Myocardial infarct finding now present Sinus rhythm no longer present Electronically Signed On 06-29-2024 01:26:13 CDT by Ayesha Smith M.D. [email or web address]
--- NOTE | 2024-06-28 21:22 | ED.C_ITS ---
Documented by User: Agustina Schmidt MD 06/28/24 22:48 HPI - Psych 2 General: Chief Complaint: Psychiatric Symptoms Stated Complaint: COMBATIVE Time Seen by Provider: 06/28/24 21:16 History of Present Illness: 68-year-old female presents emergency ro om with police. She was agitated and hallucinating and trying to walk out of her house. She was somewhat combative apparently then on the ambulance she became nonresponsive which appears to be intentional. On arrival here she has an episode of agitation again and has to be put back in bed. She was recently admitted to the hospital with schizophrenia or hallucinations. Apparently she had been sleeping well and had similar type symptoms of agitation and had some mild renal insufficiency. She was treated for this and then given some sleep medicines and improved greatly. She was offered psychiatric help and declined. Apparently went when she went home she has not take any more of the medications and now is agitated again. Related Data Home Medications Medication Instructions Recorded Confirmed ascorbic acid (vitamin C) 1,000 mg 1,000 mg PO QAM 07/17/21 06/24/24 tablet (Vitamin C) multivitamin 1 tab PO QAM 07/17/21 06/24/24 ferrous sulfate 325 mg (65 mg 325 mg PO QAM 04/16/22 06/24/24 iron) tablet (iron) magnesium oxide 400 mg (241.3 mg 400 mg PO DAILY 03/13/23 06/24/24 magnesium) tablet allopurinol 300 mg tablet 300 mg PO DAILY 06/24/24 06/24/24 fluticasone propionate 50 2 spray intranasal DAILY 06/24/24 06/24/24 mcg/actuation nasal spray,suspension glimepiride 4 mg tablet 4 mg PO BID 06/24/24 06/24/24 hydrochlorothiazide 25 mg tablet 25 mg PO DAILY 06/24/24 06/24/24 levothyroxine 25 mcg tablet 25 mcg PO DAILY 06/24/24 06/24/24 metoprolol tartrate 50 mg tablet 25 mg PO DAILY 06/24/24 06/24/24 omeprazole 20 mg capsule,delayed 20 mg PO DAILY 06/24/24 06/24/24 release pioglitazone 15 mg tablet 15 mg PO DAILY 06/24/24 06/24/24 Previous Rx's Medication Instructions Recorded albuterol sulfate 90 mcg/actuation 2 puff inhalation Q4H PRN 07/24/23 aerosol inhaler (Ventolin HFA) Shortness Of Breath #8.5 grams apixaban 2.5 mg tablet 2.5 mg PO BID #180 tabs 01/07/24 mecobalamin (vitamin B12) 1,000 1,000 mcg PO DAILY #30 tabs 01/07/24 mcg chewable tablet furosemide 40 mg tablet 40 mg PO DAILY PRN swelling #10 06/25/24 tabs risperidone 0.25 mg tablet 0.25 mg PO 2100 #30 tabs 06/25/24 venlafaxine 37.5 mg 37.5 mg PO DAILY #30 caps 06/25/24 capsule,extended release 24 hr Allergies Allergy/AdvReac Type Severity Reaction Status Date / Time morphine Allergy ALGY-formic Verified 06/28/24 21:35 ation ofloxacin [From Floxin] Allergy ADR-Anxiety Verified 06/28/24 21:35 red dye Allergy vomit Verified 06/28/24 21:35 [id number]-[id number] Reductase AdvReac myalgias Verified 06/28/24 21:35 Inhibitor Review of Systems 2 Narrative: Unable to obtain secondary to clinical condition PFSH ED 2 PFSH: Medical History (Updated 06/29/24 @ 00:35 by Antonio Woodward DO) Anticoagulation adequate with anticoagulant therapy Morbid obesity Arthritis Anemia GERD (gastroesophageal reflux disease) / Hiatal hernia Hyperlipidemia Hypertension Gout Depression Diabetes Cervical disc disease Asthma Surgical History History of umbilical hernia repair (04/18/22) History of esophagogastroduodenoscopy (EGD) Hx of cholecystectomy Hx of colonoscopy 2018 or 2019 History of carpal tunnel release Right Elbow dislocation Right History of bilateral salpingo-oophorectomy (BSO) History of hysterectomy Status post bilateral knee replacements Family History Other Cancer Diabetes Social History Smoking and tobacco/nicotine status: unknown if used tobacco/nicotine Alcohol intake: never Physical Exam 2 Narrative: EXAM NARRATIVE: General: Alert, no acute distress. Skin: Warm, dry. Head: Normocephalic, atraumatic. Neck: Supple, trachea midline. Eye: Extraocular movements are intact. Ears, nose, mouth and throat: mucosa moist. Cardiovascular: Regular, Normal peripheral perfusion. Respiratory: Lungs are clear to auscultation, respirations are non-labored, breath sounds are equal, Symmetrical chest wall expansion. Gastrointestinal: Soft, Nontender, Non distended Musculoskeletal: Normal ROM, no deformity. Neurological: Alert and oriented, No focal neurological deficit observed. Psychiatric: Initially holding her eyes shut intentionally. Would not answer questions. She then becomes agitated and tries to run out of the room. l Course 2 Vital Signs: Vital signs: Vital Signs Pulse Rate 84 06/29/24 01:20 Respiratory Rate 17 06/29/24 01:20 Blood Pressure 153/81 06/29/24 01:00 Pulse Oximetry 99 06/29/24 01:20 Oxygen Delivery Me thod Nasal Cannula 06/29/24 01:00 Oxygen Flow Rate 1 06/29/24 01:00 MDM - Psych Medical Decision Making Medical decision making: Differential diagnosis including but not limited to and based on the above HPI, review of systems and physical exam: In this patient with altered mental status: Stroke. Hypoglycemia. Metabolic encephalopathy. Infections such as pneumonia, urinary tract infection, Covid-19, Influenza. Electrolyte abnormalities such as hypernatremia. Renal failure / uremia. Hepatic encephalopathy. Hypoxemia. Hypercapnic respiratory failure. Psychosis. Drug or alcohol intoxication. Medication overdose. Orders placed to evaluate differential diagnosis based on the above differential, HPI and physical exam CT head: No acute intracranial process. no intracranial hemorrhage, no evidence of infarct. no evidence of acute fracture.This was reviewed and interpreted by myself the ER physician. Lab Review: Laboratory results were reviewed and interpreted by myself the emergency room physician. Initial lab work showing white count of 14. Hemoglobin of 11. She has some signs of a minor urinary tract infection so some Rocephin is being given. Patient care transitioned to Dr. Woodward at shift change. Lab Data 06/28/24 22:26 06/28/24 22:[address] 06/28/24 21:19 IMPRESSION: 1. No acute intracranial abnormality. Laboratory Results WBC 14.35 10^3/uL (3.29-11.43) H 06/28/24 22: RBC 3.94 10^6/uL (3.85-5.65) 06/28/24 22:26 Hgb 11.20 g/dL (11.27-16.99) L 06/28/24: Hct 35.4 % (36-47) L 06/28/24 22: MCV 89.8 fl (85-98) 06/28/24 22: MCH 28.4 pg (27-33) 06/28/24: MCHC 31.6 g/dL (30-55) 06/28/24: RDW 14.8 % (12.1-15.1) 06/28/24: Plt Count 204 10^3/cmm (157-399) 06/28/24 22: MPV 10.7 fL (7.4-10.4) H 06/28/24: Neut % (Auto) 89.3 % 06/28/24: Lymph % (Auto) 5.6 % 06/28/24: [place] % (Auto) 4.4 % 06/28/24: Eos % (Auto) 0.1 % 06/28/24: Baso % (Auto) 0.2 % 06/28/24: Neut # (Auto) 12.81 10^3/uL (1.8-7.7) H 06/28/24: Lymph # (Auto) 0.8 10^3/uL (0.8-4.8) 06/28/24 22: [place] # (Auto) 0.6 10^3/uL (0.2-0.9) 06/28/24: Eos # (Auto) 0.0 10^3/uL (0.0-0.8) 06/28/24: Baso # (Auto) 0.0 10^3/uL (0.0-0.1) 06/28/24: Nucleated RBC % (auto) 0 % 06/28/24: Nucleated RBCs # 0.0 /100WBC 06/28/24 22: Sodium 137 mmol/L (136-145) 06/28/24 22: Potassium 2.8 mmol/L (3.5-5.1) L* 06/28/24: Chloride 100 mmol/L (98-107) 06/28/24 22:26 Carbon Dioxide 19 mmol/L (22-29) L 06/28/24 22:26 Anion Gap 20.8 (5-19) H 06/28/24 22:26 BUN 26 mg/dL (8-23) H 06/28/24 22:26 Creatinine 1.8 mg/dL (0.5-0.9) H 06/28/24 22:26 GFR Calculation 27.9 mL/min (90-130) L 06/28/24 22:26 Glucose 274 mg/dL (65-115) H 06/28/24 22:26 POC Glucose 305 mg/dL (70-110) H 06/28/24 21:19 Calculated Osmolality 299 mOsm/kg (285-295) H 06/28/24 22:26 Lactic Acid 2.6 mmol/L (0.5-2.2) H 06/28/24 22:26 Calcium 9.3 mg/dL (8.5-10.5) 06/28/24 22:26 Total Bilirubin 0.3 mg/dL (0.15-1.2) 06/28/24 22:26 AST 19 U/L (0-32) 06/28/24 22:26 ALT 15 U/L (0-33) 06/28/24 22:26 Alkaline Phosphatase 84 U/L (35-105) 06/28/24 22:26 Ammonia 25 umol/L (11-51) 06/28/24 22:26 Total Protein 6.5 g/dL (6.6-8.7) L 06/28/24 22:26 Albumin 4.0 g/dL (3.5-5.2) 06/28/24 22:26 Globulin 2.5 g/dL (1.3-4.6) 06/28/24 22:26 TSH 2.20 uIU/mL (0.27-4.20) 06/28/24 22:26 Urine Color Yellow (Yellow) 06/28/24 21:32 Urine Appearance Clear (CLEAR) 06/28/24 21:32 Urine pH 5.0 (5-7) 06/28/24 21:32 Ur Specific [place] 1.015 (1.005-1.030) 06/28/24 21:32 Urine Protein Trace (Negative) A 06/28/24 21:32 Urine Glucose (UA) Negative (Normal) 06/28/24 21:32 Urine Ketones Trace (Negative) 06/28/24 21: Urine Blood Negative (Negative) 06/28/24 21: Urine Nitrate Negative (Negative) 06/28/24 21:32 Urine Bilirubin Negative (Negative) 06/28/24 21:32 Urine Urobilinogen 1.0 mg/dL (Negative) 06/28/24 21:32 Ur Leukocyte Esterase 1+ (Negative) A 06/28/24 21:32 Urine RBC 0-2 /hpf (0-2) 06/28/24 21:32 Urine WBC 11-20 /hpf (0-5) H 06/28/24 21:32 Ur Squamous Epith Cells 6-10 /hpf (0-5) 06/28/24 21: Calcium Oxalate Crystal 5-10 /hpf H 06/28/24 21:32 Amorphous Sediment Not Reportable 06/28/24 21:32 Urine Bacteria None seen /hpf (NONE) 06/28/24 21:32 Hyaline Casts 32.24 /lpf 06/28/24 21:32 Salicylates < 0.3 mg/dL (3-10) L 06/28/24 22:26 Urine Opiates Screen Negative ng/mL (Negative) 06/28/24 21: Acetaminophen < 5.0 ug/mL (10-30) L 06/28/24 22:26 Ur Barbiturates Screen Negative ng/mL (Negative) 06/28/24 21:32 Ur Phencyclidine Scrn Negative ng/mL (Negative) 06/28/24 21:32 Ur Amphetamines Screen Negative ng/mL (Negative) 06/28/24 21:32 U Benzodiazepines Scrn Negative ng/mL (Negative) 06/28/24 21:32 Urine Cocaine Screen Negative ng/mL (Negative) 06/28/24 21:32 U Marijuana (THC) Screen Negative ng/mL (Negative) 06/28/24 21:32 Ethyl Alcohol < 10 mg/dL (0-10) 06/28/24 22:26 Coronavirus (PCR) Negative (Negative) 06/29/24 00:32 Influenza A (PCR) Negative (Negative) 06/29/24 00:32 Influenza Type B (PCR) Negative (Negative) 06/29/24 00:32 RSV (PCR) Negative (Negative) 06/29/24 00:32 Discharge Plan Discharge Patient Disposition: Placed in Observation Admit Provider: Janna Vicente Clinical Impression: Acute psychosis, Acute kidney injury, Acute hypokalemia Leukocytosis Qualifiers: Leukocytosis type: unspecified Qualified Code(s): D72.829 - Elevated white blood cell count, unspecified Coding Level of Care Code ED Rn Er for Chg Fwd Documented by User: Antonio Woodward DO 06/29/24 01:28 HPI - Psych 2 General: Chief Complaint: Psychiatric Symptoms Stated Complaint: COMBATIVE Time Seen by Provider: 06/28/24 21:16 Related Data Home Medications Medication Instructions Recorded Confirmed ascorbic acid (vitamin C) 1,000 mg 1,000 mg PO QAM 07/17/21 06/24/24 tablet (Vitamin C) multivitamin 1 tab PO QAM 07/17/21 06/24/24 ferrous sulfate 325 mg (65 mg 325 mg PO QAM 04/16/22 06/24/24 iron) tablet (iron) magnesium oxide 400 mg (241.3 mg 400 mg PO DAILY 03/13/23 06/24/24 magnesium) tablet allopurinol 300 mg tablet 300 mg PO DAILY 06/24/24 06/24/24 fluticasone propionate 50 2 spray intranasal DAILY 06/24/24 06/24/24 mcg/actuation nasal spray,suspension glimepiride 4 mg tablet 4 mg PO BID 06/24/24 06/24/24 hydrochlorothiazide 25 mg tablet 25 mg PO DAILY 06/24/24 06/24/24 levothyroxine 25 mcg tablet 25 mcg PO DAILY 06/24/24 06/24/24 metoprolol tartrate 50 mg tablet 25 mg PO DAILY 06/24/24 06/24/24 omeprazole 20 mg capsule,delayed 20 mg PO DAILY 06/24/24 06/24/24 release pioglitazone 15 mg tablet 15 mg PO DAILY 06/24/24 06/24/24 Previous Rx's Medication Instructions Recorded albuterol sulfate 90 mcg/actuation 2 puff inhalation Q4H PRN 07/24/23 aerosol inhaler (Ventolin HFA) Shortness Of Breath #8.5 grams apixaban 2.5 mg tablet 2.5 mg PO BID #180 tabs 01/07/24 mecobalamin (vitamin B12) 1,000 1,000 mcg PO DAILY #30 tabs 01/07/24 mcg chewable tablet furosemide 40 mg tablet 40 mg PO DAILY PRN swelling #10 06/25/24 tabs risperidone 0.25 mg tablet 0.25 mg PO 2100 #30 tabs 06/25/24 venlafaxine 37.5 mg 37.5 mg PO DAILY #30 caps 06/25/24 capsule,extended release 24 hr Allergies Allergy/AdvReac Type Severity Reaction Status Date / Time morphine Allergy ALGY-formic Verified 06/28/24 21:35 ation ofloxacin [From Floxin] Allergy ADR-Anxiety Verified 06/28/24 21:35 red dye Allergy vomit Verified 06/28/24 21:35 [id number] Reductase AdvReac myalgias Verified 06/28/24 21:35 Inhibitor PFSH ED 2 PFSH: Medical History (Updated 06/29/24 @ 00:35 by Antonio Woodward DO) Anticoagulation adequate with anticoagulant therapy Morbid obesity Arthritis Anemia GERD (gastroesophageal reflux disease) / Hiatal hernia Hyperlipidemia Hypertension Gout Depression Diabetes Cervical disc disease Asthma Surgical History History of umbilical hernia repair (04/18/22) History of esophagogastroduodenoscopy (EGD) Hx of cholecystectomy Hx of colonoscopy 2018 or 2019 History of carpal tunnel release Right Elbow dislocation Right History of bilateral salpingo-oophorectomy (BSO) History of hysterectomy Status post bilateral knee replacements Family History Other Cancer Diabetes Social History Smoking and tobacco/nicotine status: unknown if used tobacco/nicotine Alcohol intake: never Course 2 Vital Signs: Vital signs: Vital Signs Pulse Rate 84 06/29/24 01:20 Respiratory Rate 17 06/29/24 01:20 Blood Pressure 153/81 06/29/24 01:00 Pulse Oximetry 99 06/29/24 01:20 Oxygen Delivery Me thod Nasal Cannula 06/29/24 01:00 Oxygen Flow Rate 1 06/29/24 01:00 [facility] - Psych Medical Decision Making Medical decision making: Differential diagnosis including but not limited to and based on the above HPI, review of systems and physical exam: In this patient with altered mental status: Stroke. Hypoglycemia. Metabolic encephalopathy. Infections such as pneumonia, urinary tract infection, Covid-19, Influenza. Electrolyte abnormalities such as hypernatremia. Renal failure / uremia. Hepatic encephalopathy. Hypoxemia. Hypercapnic respiratory failure. Psychosis. Drug or alcohol intoxication. Medication overdose. Orders placed to evaluate differential diagnosis based on the above differential, HPI and physical exam CT head: No acute intracranial process. no intracranial hemorrhage, no evidence of infarct. no evidence of acute fracture.This was reviewed and interpreted by myself the ER physician. Lab Review: Laboratory results were reviewed and interpreted by myself the emergency room physician. Initial lab work showing white count of 14. Hemoglobin of 11. She has some signs of a minor urinary tract infection so some Rocephin is being given. Patient care transitioned to Dr. Woodward at shift change. Lab work reviewed due to the mildly elevated white count, low potassium elevated BUN and creatinine we will admit the patient to obs, Dr. Vicente noted and is in agreements. After lab work improves then we may try [facility] psych Lab Data 06/28/24 22:26 06/28/24 22:[address] 06/28/24 21:19 IMPRESSION: 1. No acute intracranial abnormality. Laboratory Results WBC 14.35 10^3/uL (3.29-11.43) H 06/28/24 22: RBC 3.94 10^6/uL (3.85-5.65) 06/28/24 22: Hgb 11.20 g/dL (11.27-16.99) L 06/28/24 22: Hct 35.4 % (36-47) L 06/28/24 22: MCV 89.8 fl (85-98) 06/28/24 22: MCH 28.4 pg (27-33) 06/28/24 22: MCHC 31.6 g/dL (30-55) 06/28/24: RDW 14.8 % (12.1-15.1) 06/28/24 22: Plt Count 204 10^3/cmm (157-399) 06/28/24 22: MPV 10.7 fL (7.4-10.4) H 06/28/24 22:26 Neut % (Auto) 89.3 % 06/28/24 22: Lymph % (Auto) 5.6 % 06/28/24 22: [place] % (Auto) 4.4 % 06/28/24 22:26 Eos % (Auto) 0.1 % 06/28/24 22: Baso % (Auto) 0.2 % 06/28/24: Neut # (Auto) 12.81 10^3/uL (1.8-7.7) H 06/28/24 22: Lymph # (Auto) 0.8 10^3/uL (0.8-4.8) 06/28/24 22:26 [place] # (Auto) 0.6 10^3/uL (0.2-0.9) 06/28/24 22:26 Eos # (Auto) 0.0 10^3/uL (0.0-0.8) 06/28/24 22:26 Baso # (Auto) 0.0 10^3/uL (0.0-0.1) 06/28/24 22:26 Nucleated RBC % (auto) 0 % 06/28/24: Nucleated RBCs # 0.0 /100WBC 06/28/24 22:26 Sodium 137 mmol/L (136-145) 06/28/24 22: Potassium 2.8 mmol/L (3.5-5.1) L* 06/28/24 22: Chloride 100 mmol/L (98-107) 06/28/24 22: Carbon Dioxide 19 mmol/L (22-29) L 06/28/24 22: Anion Gap 20.8 (5-19) H 06/28/24 22:26 BUN 26 mg/dL (8-23) H 06/28/24 22:26 Creatinine 1.8 mg/dL (0.5-0.9) H 06/28/24 22: GFR Calculation 27.9 mL/min (90-130) L 06/28/24 22:26 Glucose 274 mg/dL (65-115) H 06/28/24 22:26 POC Glucose 305 mg/dL (70-110) H 06/28/24 21:19 Calculated Osmolality 299 mOsm/kg (285-295) H 06/28/24 22:26 Lactic Acid 2.6 mmol/L (0.5-2.2) H 06/28/24 22:26 Calcium 9.3 mg/dL (8.5-10.5) 06/28/24 22:26 Total Bilirubin 0.3 mg/dL (0.15-1.2) 06/28/24 22:26 AST 19 U/L (0-32) 06/28/24 22:26 ALT 15 U/L (0-33) 06/28/24 22:26 Alkaline Phosphatase 84 U/L (35-105) 06/28/24 22:26 Ammonia 25 umol/L (11-51) 06/28/24 22:26 Total Protein 6.5 g/dL (6.6-8.7) L 06/28/24 22:26 Albumin 4.0 g/dL (3.5-5.2) 06/28/24 22:26 Globulin 2.5 g/dL (1.3-4.6) 06/28/24 22:26 TSH 2.20 uIU/mL (0.27-4.20) 06/28/24 22:26 Urine Color Yellow (Yellow) 06/28/24 21: Urine Appearance Clear (CLEAR) 06/28/24 21: Urine pH 5.0 (5-7) 06/28/24 21:32 Ur Specific [place] 1.015 (1.005-1.030) 06/28/24 21:32 Urine Protein Trace (Negative) A 06/28/24: Urine Glucose (UA) Negative (Normal) 06/28/24: Urine Ketones Trace (Negative) 06/28/24: Urine Blood Negative (Negative) 06/28/24 21: Urine Nitrate Negative (Negative) 06/28/24 21: Urine Bilirubin Negative (Negative) 06/28/24: Urine Urobilinogen 1.0 mg/dL (Negative) 10/07/24 21:32 Ur Leukocyte Esterase 1+ (Negative) A 06/28/24 21:32 Urine RBC 0-2 /hpf (0-2) 06/28/24 21:32 Urine WBC 11-20 /hpf (0-5) H 06/28/24 21:32 Ur Squamous Epith Cells 6-10 /hpf (0-5) 06/28/24 21:32 Calcium Oxalate Crystal 5-10 /hpf H 06/28/24 21:32 Amorphous Sediment Not Reportable 06/28/24 21:32 Urine Bacteria None seen /hpf (NONE) 06/28/24 21:32 Hyaline Casts 32.24 /lpf 06/28/24 21:32 Salicylates < 0.3 mg/dL (3-10) L 06/28/24 22:26 Urine Opiates Screen Negative ng/mL (Negative) 06/28/24 21:32 Acetaminophen < 5.0 ug/mL (10-30) L 06/28/24 22:26 Ur Barbiturates Screen Negative ng/mL (Negative) 06/28/24 21:32 Ur Phencyclidine Scrn Negative ng/mL (Negative) 06/28/24 21:32 Ur Amphetamines Screen Negative ng/mL (Negative) 06/28/24 21:32 U Benzodiazepines Scrn Negative ng/mL (Negative) 06/28/24 21:32 Urine Cocaine Screen Negative ng/mL (Negative) 06/28/24 21:32 U Marijuana (THC) Screen Negative ng/mL (Negative) 06/28/24 21:32 Ethyl Alcohol < 10 mg/dL (0-10) 06/28/24 22:26 Coronavirus (PCR) Negative (Negative) 06/29/24 00:32 Influenza A (PCR) Negative (Negative) 06/29/24 00:32 Influenza Type B (PCR) Negative (Negative) 06/29/24 00:32 RSV (PCR) Negative (Negative) 06/29/24 00:32 All radiology interpretation(s) finalized by discharge Discharge Plan Discharge Patient Disposition: Placed in Observation Admit Provider: Janna Vicente Clinical Impression: Acute psychosis, Acute kidney injury, Acute hypokalemia Leukocytosis Qualifiers: Leukocytosis type: unspecified Qualified Code(s): D72.829 - Elevated white blood cell count, unspecified Coding Level of Care Code ED Rn Er for Chg Fwd
[2024-06-28 21:34] LABS: Glucose Point of Care 305 mg/dL (70-110)
[2024-06-28 21:46] LABS: Bilirubin Urine Negative (Negative); Blood Urine Negative (Negative); Glucose Urine UA Negative (Normal); Ketones Urine Trace (Negative); Leukocyte Esterase Urine 1+ (Negative); Nitrate Urine Negative (Negative); Protein Urine Trace (Negative); Specific Gravity, Urine 1.015 (1.005-1.030); Urine Appearance Clear (CLEAR); Urine Color Yellow (Yellow)
[2024-06-28 21:53] LABS: Amphetamines Screen Urine Negative (Negative); Barbiturates Screen Urine Negative (Negative); Benzodiazepines Screen Urine Negative (Negative); Cocaine Screen Urine Negative (Negative); Opiate Screen Urine Negative (Negative); PCP Screen Urine Negative (Negative); THC Screen Urine Negative (Negative)
[2024-06-28 21:55] LABS: Bacteria Urine None Seen /hpf; Hyaline Casts Urine 32.24 /lpf; RBC Urine 0-2 /hpf (0-2)
[2024-06-28] MEDS: haloperidol inj 5 mg/mL INJ 1 mL 10 MG IM (21:57)
[2024-06-28] MEDS: LORazepam 2 mg/mL INJ 1 mL IM (21:57)
[2024-06-28 22:17] LABS: Add Urine Culture? No
[2024-06-28 22:38] LABS: Basophils % 0.2 %; Eosinophils % 0.1 %; Hematocrit 35.4 % (36-47); Lymphocytes # 0.8 10^3/uL (0.8-4.8); Lymphocytes % 5.6 %; Mean Corpuscular HGB Conc 31.6 g/dL (30-55); Mean Corpuscular Hemoglobin 28.4 pg (27-33); Mean Corpuscular Volume 89.8 fl (85-98); Mean Platelet Volume 10.7 fL (7.4-10.4); Monocytes # 0.6 10^3/uL (0.2-0.9); Monocytes % 4.4 %; Neutrophils # 12.81 10^3/uL (1.8-7.7); Neutrophils % 89.3 %; Nucleated Red Blood Cells % 0 %; Platelet Count 204 10^3/cmm (157-399); Red Blood Count 3.94 10^6/uL (3.85-5.65); Red Cell Distribution Width 14.8 % (12.1-15.1); White Blood Count 14.35 10^3/uL (3.29-11.43)
[2024-06-28 22:57] LABS: Ammonia 25 umol/L (11-51)
[2024-06-28 23:00] LABS: Lactic Sepsis W/Reflex 2.6 mmol/L (0.5-2.2)
[2024-06-28 23:10] LABS: Alanine Aminotransferase 15 U/L (0-33); Alkaline Phosphatase 84 U/L (35-105); Anion Gap 20.8 (5-19); Aspartate Amino Transferase 19 U/L (0-32); Blood Urea Nitrogen 26 mg/dL (8-23); Calcium 9.3 mg/dL (8.5-10.5); Carbon Dioxide 19 mmol/L (22-29); Chloride 100 mmol/L (98-107); Creatinine Clr Calc Pharmacy 38.3331; Globulin 2.5 g/dL (1.3-4.6); Glomerular Filtration Rate 27.9 mL/min (90-130); Glucose 274 mg/dL (65-115); Osmolality Calculated 299 mOsm/kg (285-295); Sodium 137 mmol/L (136-145); Total Bilirubin 0.3 mg/dL (0.15-1.2); Total Protein 6.5 g/dL (6.6-8.7)
[2024-06-28 23:11] LABS: Acetaminophen < 5.0 ug/mL (10-30); Alcohol Level < 10 mg/dL (0-10); Salicylate < 0.3 mg/dL (3-10)
[2024-06-28 23:12] LABS: Potassium 2.8 mmol/L (3.5-5.1)
[2024-06-28 23:32] VITALS: BP 143/72; PULSE 74; RESP 15; O2SAT 91
[2024-06-28] MEDS: potassium chloride ER 20 mEq Tablet 40 MEQ PO (23:37)
[2024-06-28] MEDS: cefTRIAXone 1,000 MG in water for injection-sterile 2.1 ML 1 MG IM (23:40)
[2024-06-29] VITALS (15 sets, daily range): BP systolic 105–161; BP diastolic 61–99; PULSE 62–95; RESP 14–17; TEMP 36.5–36.9; O2SAT 90–99
[2024-06-29 00:22] LABS: Reflex Lactate Order REFLEX LACTIC ORDERD
--- NOTE | 2024-06-29 00:33 | PC.NURSE ---
Patient attempted to leave facility, but was stopped by nursing staff. Patient had managed to leave room and staff attempted to verbally de-escalate situation and escort patient to return to room. Patient then lowered herself to the floor, without injury, and refused to move or stand up to go back into her room. Staff, as well as security and boiler house operator, safely helped patient back to room. Dr Schmidt ordered medication shortly after incident; patient remained resting in bed with PSA present.
[2024-06-29 01:28] LABS: Covid PCR NEGATIVE (Negative); Influenza A NEGATIVE (Negative); Influenza B NEGATIVE (Negative); Respiratory Syncytial Virus Ce NEGATIVE (Negative)
[2024-06-29 01:40] LABS: Lactic Acid level (Lactate) 1.4 mmol/L (0.5-2.2)
--- NOTE | 2024-06-29 03:46 | PC.NURSE ---
patient transferred from the ER department, sitter at bedside. patient resting in bed with eyes closed at this time. no signs of agitation or discomfort
--- NOTE | 2024-06-29 04:01 | P.HP_ITS ---
Providers/Chief Complaint 2 Admitting Physician: Janna Vicente MD Primary Care Provider: Chato Palma MD Chief Complaint: COMBATIVE History of Present Illness Kathy Frey is a 68 year old female with past medical history of depression, hypothyroidism, type 2 diabetes mellitus, atrial fibrillation who was recently admitted to the hospital between 06/24-06/25 with auditory hallucinations. Patient states she has been hearing both male and female voices in both upper ears for last few months since January 2024. Voices tell her that they are going to kill her, gave shock in her lower extremities. Patient states she has been hearing both male and female voices in both upper ears for last few months. Voices tell her that they are going to kill her, gave shock in her lower extremities. She had been weaned off Effexor in January 2024. She was started on IV hydration with concerns for mild acute kidney injury on admission. MRI was offered to the patient though she declined as she is claustrophobic. Care were discussed in detail with inpatient psychiatric department who advised patient to be started on low-dose Effexor every morning and Risperdal at night. After starting of risperidone patient was able to sleep well and her symptoms of auditory and visual hallucinations resolved in the hospital. Patient was offered to follow-up with psychiatric team or behavioral health care clinic as an outpatient but she declined. She requested to be discharged home with her . Overall infectious evaluation was negative. No other medical causes were found for her hallucinations. She returned to the ER today with police with c/o agitated and hallucinating and trying to walk out of her house. She was somewhat combative apparently then on the ambulance she became nonresponsive which appeared to be intentional. She was awake and alert on arrival here. She did not take effexor or resperidal after returning home. She has leukocytosis at 14K today, increased creatinine and low potassium. She remains afebrile Review of Systems 2 General: Reports: 10 or more systems reviewed and unremarkable except in HPI and below Const: Denies: fever(s), chills or body aches Eyes: Denies: change in vision, blurry vision or photophobia ENMT: Reports: hoarseness; Denies: throat pain, enlarged tonsils, odynophagia or nasal congestion Card: Denies: chest pain, palpitations, irregular heart rhythm, edema, swelling of feet/ankles, lightheadedness, pre-syncope, dyspnea on exertion or orthopnea Resp: Denies: dyspnea, productive cough, non-productive cough, wheezing, stridor, pain on inspiration, change in phlegm color, hemoptysis or chest congestion GI: Denies: abdominal pain, nausea, vomiting, hematemesis, coffee ground emesis, dysphagia, heartburn, diarrhea, constipation, GI cramping, change in stool character, hematochezia or melena : Denies: flank pain, difficulty voiding, dysuria, urinary frequency, urinary urgency, urinary hesitancy or hematuria Musc: Denies: neck pain, back pain, extremity pain, joint swelling, joint warmth or deformity Neuro: Denies: headache(s), numbness in extremities, weakness in extremities, sensory changes, difficulty walking, frequent falls, dizziness, vertigo, behavioral changes, Slurred speech present or seizure-like activity Psych: Denies: anxiety, depression, suicidal ideation or homicidal ideation Endo: Denies: polyuria, polydipsia, tired all the time, cold intolerance or hot flashes Erasmo/Lymph: Denies: easy bruising or easy bleeding Medications/Allergies Home Medications Medication Instructions Recorded Confirmed Last Taken Type ascorbic acid (vitamin C) 1,000 mg 1,000 mg PO QAM 07/17/21 06/24/24 06/24/24 History tablet (Vitamin C) multivitamin 1 tab PO QAM 07/17/21 06/24/24 06/24/24 History ferrous sulfate 325 mg (65 mg 325 mg PO QAM 04/16/22 06/24/24 06/24/24 History iron) tablet (iron) magnesium oxide 400 mg (241.3 mg 400 mg PO DAILY 03/13/23 06/24/24 06/24/24 History magnesium) tablet albuterol sulfate 90 mcg/actuation 2 puff inhalation Q4H PRN 07/24/23 06/24/24 Unknown Rx aerosol inhaler (Ventolin HFA) Shortness Of Breath #8.5 grams apixaban 2.5 mg tablet 2.5 mg PO BID #180 tabs 01/07/24 06/24/24 06/24/24 Rx mecobalamin (vitamin B12) 1,000 1,000 mcg PO DAILY #30 tabs 01/07/24 06/24/24 Unknown Rx mcg chewable tablet allopurinol 300 mg tablet 300 mg PO DAILY 06/24/24 06/24/24 06/24/24 History fluticasone propionate 50 2 spray intranasal DAILY 06/24/24 06/24/24 06/24/24 History mcg/actuation nasal spray,suspension glimepiride 4 mg tablet 4 mg PO BID 06/24/24 06/24/24 06/24/24 History hydrochlorothiazide 25 mg tablet 25 mg PO DAILY 06/24/24 06/24/24 06/24/24 History levothyroxine 25 mcg tablet 25 mcg PO DAILY 06/24/24 06/24/24 06/24/24 History metoprolol tartrate 50 mg tablet 25 mg PO DAILY 06/24/24 06/24/24 06/24/24 History omeprazole 20 mg capsule,delayed 20 mg PO DAILY 06/24/24 06/24/24 06/24/24 History release pioglitazone 15 mg tablet 15 mg PO DAILY 06/24/24 06/24/24 06/24/24 History furosemide 40 mg tablet 40 mg PO DAILY PRN swelling #10 06/25/24 06/24/24 06/24/24 Rx tabs risperidone 0.25 mg tablet 0.25 mg PO 2100 #30 tabs 06/25/24 Unknown Rx venlafaxine 37.5 mg 37.5 mg PO DAILY #30 caps 06/25/24 Unknown Rx capsule,extended release 24 hr Allergies Allergy/AdvReac Type Severity Reaction Status Date / Time morphine Allergy ALGY-formic Verified 06/28/24 21:35 ation ofloxacin [From Floxin] Allergy ADR-Anxiety Verified 06/28/24 21:35 red dye Allergy vomit Verified 06/28/24 21:35 [id number] Reductase AdvReac myalgias Verified 06/28/24 21:35 Inhibitor PFSH Acute 2 PFSH: Medical History Anticoagulation adequate with anticoagulant therapy Morbid obesity Arthritis Anemia GERD (gastroesophageal reflux disease) / Hiatal hernia Hyperlipidemia Hypertension Gout Depression Diabetes Cervical disc disease Asthma Surgical History History of umbilical hernia repair (04/18/22) History of esophagogastroduodenoscopy (EGD) Hx of cholecystectomy Hx of colonoscopy 2018 or 2019 History of carpal tunnel release Right Elbow dislocation Right History of bilateral salpingo-oophorectomy (BSO) History of hysterectomy Status post bilateral knee replacements Family History Other Cancer Diabetes Social History Smoking and tobacco/nicotine status: unknown if used tobacco/nicotine Alcohol intake: never Vitals/I&O/Wt Last Vital Signs Temp 97.7 F 06/29/24 04:05 Pulse 93 06/29/24 04:05 Resp 17 06/29/24 04:05 BP 130/78 06/29/24 04:05 Pulse Ox 97 06/29/24 04:05 O2 Del Method Room Air 06/29/24 04:05 O2 Flow Rate 1 06/29/24 01:00 06/28/24 06/28/24 06/29/24 14:59 22:59 06:59 Intake Total 2.1 / 2.1 Balance 2.1 / 2.1 Weight last 48 hrs Weight 87.543 kg Weight 113.398 kg Physical Exam 2 Narrative: General: No acute distress, wakes up easily to calling name, answers most questions with yes or no HEENT: PERRLA, pupils bilaterally equal and reactive, pallors not present Chest: Normal vesicular breath sounds, no added sounds, equal good air entry bilaterally CVS: S1-S2 regular, no murmurs, no tachycardia, no gallops, no rubs Abdomen: Soft, nontender, no organomegaly, bowel sounds present Neuro: No focal deficits, no facial deformity, AO x1-2, power 5/5 in all limbs EXT: B/l LE pitting edema Data 06/29/24 05:49 06/29/24 05:49 Micro: Microbiology 06/28/24 22:29 Blood Culture - Preliminary Blood SPECIMEN COLLECTED 06/28/24 22:26 Blood Culture - Preliminary Blood SPECIMEN COLLECTED Other data: CT/CT head wo con* [id number] IMPRESSION: 1. No acute intracranial abnormality. CT/CT head wo con* [id number] IMPRESSION: 1. No acute intracranial hemorrhage or edema. 2. Stable noncontrast head CT since 11/01/2018 XR/XR chest 1V portable [id number] IMPRESSION: 1. No acute cardiopulmonary finding. A&P Assessment and plan (1) Auditory hallucination: (2) Acute psychosis: (3) UTI (urinary tract infection): (4) Hypokalemia: (5) Acute kidney injury: (6) Atrial fibrillation: (7) Diabetes: Plan 68-year-old lady with a past medical history of atrial fibrillation, diabetes mellitus, hypertension, hypothyroidism with recent history of worsening auditory hallucinations currently presenting to the hospital with persistent hallucinations and psychosis. On evaluation today does have some mild lab abnormalities including mild leukocytosis at 14,000, hypokalemia at 2.8, STACY with creatinine at 1.8 and uncontrolled blood sugars. Initially lactate 2.6 on arrival, recheck at 1.4. UA showing 1+ leukocyte esterase, 11-20 WBCs therefore possibility of a UTI not excluded at this time. Start patient empirically on ceftriaxone 1 g IV every 24 hours Await urine cultures Blood cultures taken in the emergency room, currently pending Urine drug screen is negative Check renal ultrasound to assess for hydronephrosis or other obstructive pathology For her auditory hallucinations she was recommended to be started on Effexor and Risperdal after discussion with psych, it appears patient did not take these after discharge at home, will be resumed now. Psychiatry consult in am MRI brain ordered to further evaluate Insulin sliding scale for diabetes mellitus. STACY may be related to dehydration, possibly overdiuresis with Lasix and hydrochlorothiazide has been part of her home medication list. Hold HCTZ for now, lasix at 40mg po daily for now For her hallucinations she has recently had CT of the head x 2 without any acute intracranial pathology identified, normal TSH of 2.2 negative respiratory viral panel, negative blood culture from June 24, 2024, chest x-ray without consolidation on June 24, 2024. Ammonia of 25. Will additionally check serum RPR, B12 and folate, HIV. Denies h/o chronic alcohol consumption. A-fib currently rate controlled. Chronically anticoagulated with Eliquis DVT ppx: Eliquis chronically 2.5mg BID Full code Attestations 2 Medical Necessity Statement*: Less than 2 midnight stay anticipated for now Coding Level of Care Code Acute Code for Chg Fwd Moderate MDM includes number and complexity of problems actively addressed during encounter, amount and/or complexity of data reviewed/ordered and described risk of complication, morbidity or mortality of management as documented Diagnoses Auditory hallucination R44.0 Acute psychosis F23 UTI (urinary tract infection) N39.0 Hypokalemia E87.6 Acute kidney injury N17.9 Atrial fibrillation I48.91 Diabetes E11.9
--- NOTE | 2024-06-29 04:10 | US_ITS ---
WS: [id number] RENAL ULTRASOUND HISTORY: assess for hydronephrosis COMPARISON: None available. TECHNIQUE: 2-D and color Doppler imaging of the kidney submitted. Right kidney: 11.7 cm x 6.0 cm x 5.7 cm. Cortex: 1.1 cm Poorly visualized kidney. No hydronephrosis. Mass may be difficult to exclude. Left kidney: 10.3 cm x 5.4 cm x 4.9 cm. Cortex: 1.1 cm Normal size kidney. Very slight cortical thinning. No mass. Aorta: Poorly visualized. Urinary Bladder: Normal distention. US/US renal BI* [id number] IMPRESSION: 1. Technically very difficult and limited evaluation of the kidneys. 2. No hydronephrosis or mass identified.
[2024-06-29] MEDS: sodium chloride 0.9% 1,000 ML 75 ML IV (05:19)
[2024-06-29 05:55] LABS: Basophils % 0.1 %; Hematocrit 35.2 % (36-47); Lymphocytes # 1.1 10^3/uL (0.8-4.8); Lymphocytes % 12.5 %; Mean Corpuscular HGB Conc 31.5 g/dL (30-55); Mean Corpuscular Volume 91.9 fl (85-98); Mean Platelet Volume 10.7 fL (7.4-10.4); Monocytes # 0.6 10^3/uL (0.2-0.9); Monocytes % 7.5 %; Neutrophils # 6.82 10^3/uL (1.8-7.7); Neutrophils % 79.4 %; Nucleated Red Blood Cells % 0 %; Platelet Count 191 10^3/cmm (157-399); Red Blood Count 3.83 10^6/uL (3.85-5.65); White Blood Count 8.58 10^3/uL (3.29-11.43)
[2024-06-29 06:16] LABS: Alanine Aminotransferase 14 U/L (0-33); Albumin Level 3.6 g/dL (3.5-5.2); Alkaline Phosphatase 77 U/L (35-105); Anion Gap 16.1 (5-19); Aspartate Amino Transferase 19 U/L (0-32); Blood Urea Nitrogen 24 mg/dL (8-23); Calcium 9.2 mg/dL (8.5-10.5); Carbon Dioxide 22 mmol/L (22-29); Chloride 104 mmol/L (98-107); Creatinine Clr Calc Pharmacy 46.4378; Globulin 2.4 g/dL (1.3-4.6); Glomerular Filtration Rate 40.6 mL/min (90-130); Glucose 138 mg/dL (65-115); Osmolality Calculated 294 mOsm/kg (285-295); Potassium 3.1 mmol/L (3.5-5.1); Sodium 139 mmol/L (136-145); Total Bilirubin 0.2 mg/dL (0.15-1.2)
[2024-06-29 06:23] LABS: Procalcitonin 0.12 ng/mL (0-0.5)
[2024-06-29 06:32] LABS: Glucose Point of Care 163 mg/dL (70-110)
[2024-06-29] MEDS: potassium chloride ER 20 mEq Tablet 40 MEQ PO (07:37)
[2024-06-29] MEDS: insulin lispro 100 unit/1 mL SUBCUT ×3 (07:37→21:07)
[2024-06-29] MEDS: FUROsemide 40 mg Tablet PO (07:37)
[2024-06-29] MEDS: metoprolol tartrate 50 mg Tablet 25 MG PO (08:25)
[2024-06-29] MEDS: apixaban 5 mg Tablet 2.5 MG PO ×2 (08:25→17:20)
[2024-06-29] MEDS: venlafaxine ER (24HR) 37.5 mg Capsule PO (08:25)
[2024-06-29] MEDS: allopurinol 300 mg Tablet PO (08:25)
[2024-06-29] MEDS: pantoprazole DR 40 mg Tablet PO (08:25)
[2024-06-29] MEDS: levothyroxine 25 mcg Tablet PO (08:25)
--- NOTE | 2024-06-29 08:42 | PC.NURSE ---
Informed patient of upcoming MRI test and patient refused stating she has had so many test done recently on her head that she doesn't want anymore and she is claustraphobic. 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 Physician notified.
[2024-06-29 09:23] LABS: Lactic Sepsis W/Reflex 1.6 mmol/L (0.5-2.2)
[2024-06-29 11:06] LABS: Glucose Point of Care 143 mg/dL (70-110)
--- NOTE | 2024-06-29 16:10 | P.PN_ITS ---
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, she does not know why she is like this now, she tells her that she was normal before all this, what all this is she is not able to tell me or describe for me, she does not know why the police can keep getting called out to her home, we discussed further evaluation like during her prior hospitalization performing an MRI of the brain, however patient has declined that she tells me she has had enough test done, she has no complaints except feeling fatigued and tired, Vitals/I&O/Wt Last Vital Signs Temp 98.4 F 06/29/24 11:57 Pulse 83 06/29/24 13:38 Resp 16 06/29/24 11:57 BP 124/71 06/29/24 11:57 Pulse Ox 95 06/29/24 11:57 O2 Del Method Room Air 06/29/24 11:57 O2 Flow Rate 1 06/29/24 01:00 06/29/24 06/29/24 06/29/24 06:59 14:59 22:59 Intake Total 2.1 / 2.1 410 / 410 Balance 2.1 / 2.1 410 / 410 Weight last 48 hrs Weight 87.657 kg Weight 87.543 kg Weight 113.398 kg Physical Exam 2 Const: COMMON NORMALS: no acute distress and patient oriented x3 Eye: COMMON NORMALS: Equal, round and reactive pupils present PUPIL: Yes Equal, round and reactive pupils present Resp: COMMON NORMALS: normal respiratory effort, No retractions, No use of accessory muscles and clear to auscultation bilaterally AUSCULTATION: clear to auscultation bilaterally Cardio: COMMON NORMALS: regular rate, regular rhythm, S1 normal heart sound present and S2 normal heart sound present RATE: regular rate RHYTHM: r egular rhythm HEART SOUNDS: S1 normal heart sound present and S2 normal heart sound present GI: COMMON NORMALS: Normal to inspection, nondistended, normoactive bowel sounds present and non-tender Extremity: COMMON NORMALS: no pedal edema Neuro: COMMON NORMALS: patient oriented x3, CN's II-XII intact bilaterally and moves all extremities Psych: COMMON NORMALS: mental status grossly normal, denies hallucinations, denies homicidal ideation and denies suicidal ideation Data 06/29/24 05:49 06/29/24 05:49 Micro: Microbiology 06/28/24 22:29 Blood Culture - Preliminary Blood SPECIMEN COLLECTED 06/28/24 22:26 Blood Culture - Preliminary Blood SPECIMEN COLLECTED A&P Assessment and plan (1) Auditory hallucination: (2) Acute psychosis: (3) UTI (urinary tract infection): (4) Hypokalemia: (5) Acute kidney injury: (6) Atrial fibrillation: (7) Diabetes: Plan Urinary tract infection, continue Rocephin Altered mental status get back to baseline Concerns for hallucinations, will consult psychiatry Denies any active suicidal ideation, no homicidal ideation, no command hallucinations, denies feeling down depressed or sad For her auditory hallucinations she was recommended to be started on Effexor and Risperdal after discussion with psych, it appears patient did not take these after discharge at home, will be resumed now,Psychiatry consult Insulin sliding scale for diabetes mellitus. STACY may be related to dehydration, possibly overdiuresis with Lasix and hydrochlorothiazide has been part of her home medication list. Hold HCTZ for now, lasix at 40mg po daily for now For her hallucinations she has recently had CT of the head x 2 without any acute intracranial pathology identified, normal TSH of 2.2 negative respiratory viral panel, negative blood culture from June 24, 2024, chest x-ray without consolidation on June 24, 2024. Ammonia of 25. Will additionally check serum RPR, B12 and folate, HIV. Denies h/o chronic alcohol consumption. A-fib currently rate controlled. Chronically anticoagulated with Eliquis Attestations 2 Medical Necessity Statement*: Patient requires hospitalization for altered mental status UTI, hallucinations Diagnoses Auditory hallucination R44.0 Acute psychosis F23 UTI (urinary tract infection) N39.0 Hypokalemia E87.6 Acute kidney injury N17.9 Atrial fibrillation I48.91 Diabetes E11.9
[2024-06-29 17:15] LABS: Glucose Point of Care 128 mg/dL (70-110)
[2024-06-29 20:23] LABS: Glucose Point of Care 153 mg/dL (70-110)
[2024-06-29] MEDS: risperiDONE 0.25 mg Tablet PO (21:07)
[2024-06-30] MEDS: cefTRIAXone 1,000 mg SDV 1000 MG IVP (00:35)
[2024-06-30 04:00] VITALS: BP 155/80; PULSE 112; RESP 18; TEMP 36.4; O2SAT 94
[2024-06-30 06:00] VITALS: PULSE 86
[2024-06-30 06:06] LABS: Basophils % 0.4 %; Eosinophils # 0.1 10^3/uL (0.0-0.8); Hematocrit 34.1 % (36-47); Lymphocytes # 1.1 10^3/uL (0.8-4.8); Lymphocytes % 14.2 %; Mean Corpuscular Hemoglobin 29.4 pg (27-33); Mean Corpuscular Volume 91.9 fl (85-98); Mean Platelet Volume 10.7 fL (7.4-10.4); Monocytes # 0.6 10^3/uL (0.2-0.9); Monocytes % 6.8 %; Neutrophils % 77.2 %; Nucleated Red Blood Cells % 0 %; Platelet Count 191 10^3/cmm (157-399); Red Blood Count 3.71 10^6/uL (3.85-5.65); Red Cell Distribution Width 15.1 % (12.1-15.1); White Blood Count 8.03 10^3/uL (3.29-11.43)
[2024-06-30 06:28] LABS: Glucose Point of Care 155 mg/dL (70-110)
[2024-06-30 06:41] LABS: Alanine Aminotransferase 15 U/L (0-33); Alkaline Phosphatase 85 U/L (35-105); Anion Gap 17.3 (5-19); Aspartate Amino Transferase 23 U/L (0-32); Blood Urea Nitrogen 20 mg/dL (8-23); Calcium 9.2 mg/dL (8.5-10.5); Carbon Dioxide 26 mmol/L (22-29); Chloride 103 mmol/L (98-107); Creatinine Clr Calc Pharmacy 60.1693; Glomerular Filtration Rate 49.2 mL/min (90-130); Glucose 154 mg/dL (65-115); Osmolality Calculated 302 mOsm/kg (285-295); Potassium 3.3 mmol/L (3.5-5.1); Sodium 143 mmol/L (136-145); Total Bilirubin 0.3 mg/dL (0.15-1.2)
[2024-06-30 06:42] LABS: Vitamin B12 368 pg/mL (232-1245)
[2024-06-30 06:57] LABS: HIV 1 & 2 Antibody Non-Reactive (Non-Reactiv); HIV 1 & 2 Antigen Non-Reactive (Non-Reactiv)
[2024-06-30 07:03] LABS: Folate Level > 20.0 ng/mL (4.8-37.3)
[2024-06-30 08:00] VITALS: BP 137/86; PULSE 93; RESP 16; TEMP 36.6; O2SAT 95
[2024-06-30] MEDS: FUROsemide 40 mg Tablet PO (09:11)
[2024-06-30] MEDS: insulin lispro 100 unit/1 mL SUBCUT ×2 (09:11→12:17)
[2024-06-30] MEDS: pantoprazole DR 40 mg Tablet PO (09:11)
[2024-06-30] MEDS: venlafaxine ER (24HR) 37.5 mg Capsule PO (09:11)
[2024-06-30] MEDS: metoprolol tartrate 50 mg Tablet 25 MG PO (09:11)
[2024-06-30] MEDS: allopurinol 300 mg Tablet PO (09:12)
[2024-06-30] MEDS: levothyroxine 25 mcg Tablet PO (09:12)
[2024-06-30] MEDS: apixaban 5 mg Tablet 2.5 MG PO (09:12)
--- NOTE | 2024-06-30 10:17 | PC.NURSE ---
Upon administration of morning medications, patients spouse was sitting at bedside and asked this nurse if pt would be discharged today. I informed him that I was unsure at this moment, but I would be rounding with her doctor shortly and I would speak with him regarding this. Patients stated I need her back home because the house if falling behind. I need her to clean the house and do laundry. I washed a load of laundry, but forgot about it and had to rewash it. Pt made contact with me and remained silent.
[2024-06-30 11:05] LABS: Glucose Point of Care 163 mg/dL (70-110)
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
[2024-06-30 12:00] VITALS: BP 131/81; PULSE 69; RESP 15; TEMP 37.4; O2SAT 97
--- NOTE | 2024-06-30 13:16 | PC.NURSE ---
Addendum entered by Anahi Campbell LPN 06/30/24 13:25: Dr. Rees arrived to med surg floor to do psych eval at 1325. Original Note: Pt stressed to this nurse that she was needing to go home and she wanted to sign herself out. The patients was at bedside and informed me once more that pt needed to get home to clean and do laundry. He also said they have [facility] and doctors appointments tomorrow. I informed her that I would make a call to the consulting doctor, Dr. Rees, and see if he would be available to do her eval this time. This nurse called [facility] and informed nursing staff that pt was wanting to discharge, but she is unable to do so until Dr. Rees comes up to do her psych eval. Nursing staff responded that he was aware. I asked them if they could please remind him again. About an hour had passed, and eval had still not been done. Pt was changed into her street clothes and said she was leaving. At this time, this nurse called Dr. Hsu that pt was threatening to leave AMA. IV taken out, AMA signed and pt left the med surg floor with her .
[2024-07-02 10:49] LABS: RPR w(Moniotor) w/REFL Titer NON-REACTIVE (NON-REACTIVE)
== END 2024-06-30 13:25 | disposition left against medical advice (07) ==
LOC: ER 06-29 00:42 → MEDSURG 06-29 01:24
PROVIDERS: Emergency Medicine; Admitting Provider Student in an Organized Health Care Education/Training Program; Emergency Provider Emergency Medicine; PCP Family Medicine; Visit Provider Family Medicine
DX: F23 Brief psychotic disorder (principal); N39.0 Urinary tract infection, site not specified; E87.6 Hypokalemia; N17.9 Acute kidney failure, unspecified; I48.91 Unspecified atrial fibrillation; E11.9 Type 2 diabetes mellitus without complications; F32.A Depression, unspecified; E03.9 Hypothyroidism, unspecified; K21.9 Gastro-esophageal reflux disease without esophagitis
CPT/HCPCS: 0241U; 36415; 36416; 70450; 76770; 80053; 80306; 80307; 81001; 82140; 82607; 82746; 82962; 83605; 84145; 84443; 85025; 86592; 87040; 87086; 87806; 93005; 96361; 96372; 96374; 99285; G0378; J0696; J1630; J1815; J2060; J7030

== ENCOUNTER → 2024-07-06 07:19 | Outpatient (BNVA) | payer MEDICARE, SELFPAY | PROVIDERS: PCP Family Medicine; Visit Provider Family Medicine | DX: F32.A Depression, unspecified (principal); E87.6 Hypokalemia; E11.9 Type 2 diabetes mellitus without complications; I10 Essential (primary) hypertension; I48.91 Unspecified atrial fibrillation; E78.5 Hyperlipidemia, unspecified | CPT/HCPCS: 80048 ==

== ENCOUNTER → 2024-07-29 08:51 | Outpatient (BNVA) | payer MEDICARE, SELFPAY | PROVIDERS: PCP Family Medicine; Visit Provider Family Medicine | DX: I10 Essential (primary) hypertension (principal); I48.91 Unspecified atrial fibrillation; E78.5 Hyperlipidemia, unspecified; E11.9 Type 2 diabetes mellitus without complications | CPT/HCPCS: 80053; 80061; 83036; 84443; 85025 ==

== ENCOUNTER → 2024-10-25 07:19 | Outpatient (BNVA) | payer MEDICARE, SELFPAY | PROVIDERS: PCP Family Medicine; Visit Provider Family Medicine | DX: I10 Essential (primary) hypertension (principal); E11.9 Type 2 diabetes mellitus without complications; I48.91 Unspecified atrial fibrillation; E78.5 Hyperlipidemia, unspecified | CPT/HCPCS: 80053; 80061; 83036; 85025 ==

== ENCOUNTER 2024-12-09 14:45 | Emergency (ER) | payer MEDICARE, SELFPAY ==
[2024-12-09 15:10] VITALS: BP 168/92; PULSE 98; RESP 18; TEMP 36.7; O2SAT 100
--- NOTE | 2024-12-09 15:16 | W.ED.PSYCHS ---
HPI - Psych General: Chief Complaint: Psychiatric Symptoms Stated Complaint: 96 Time Seen by Provider: 12/09/24 15:10 History of Present Illness: 69-year-old female brought in via PD on a 96-hour hold. Patient herself reports no complaints that she is here because her is her and thinks that she is having mental issues patient has a 96-hour hold sitting by her daughter. Daughter reports that she has been having hallucinations and other behavioral issues. They reports that this happened following an episode in which she was found to be not breathing EMS had to be called she was somewhat revived and reported that she declined to be seen and refused transport. Every since then that she has been having audiovisual hallucinations. Related Data Home Medications ?Medication ?Instructions ?Recorded ?Confirmed ascorbic acid (vitamin C) 1,000 mg 1,000 mg PO QAM 07/17/21 12/09/24 tablet (Vitamin C) multivitamin 1 tab PO QAM 07/17/21 12/09/24 ferrous sulfate 325 mg (65 mg 325 mg PO QAM 04/16/22 12/09/24 iron) tablet (iron) magnesium oxide 400 mg (241.3 mg 400 mg PO DAILY 03/13/23 12/09/24 magnesium) tablet fluticasone propionate 50 2 spray intranasal DAILY PRN 06/24/24 12/09/24 mcg/actuation nasal allergies spray,suspension hydrochlorothiazide 25 mg tablet 25 mg PO DAILY 06/24/24 12/09/24 levothyroxine 25 mcg tablet 25 mcg PO DAILY 06/24/24 12/09/24 metoprolol tartrate 50 mg tablet 25 mg PO DAILY 06/24/24 12/09/24 omeprazole 20 mg capsule,delayed 20 mg PO DAILY 06/24/24 12/09/24 release allopurinol 300 mg tablet 300 mg PO DAILY gout 12/09/24 12/09/24 furosemide 20 mg tablet 20 mg PO DAILY 12/09/24 12/09/24 glimepiride 4 mg tablet 4 mg PO BID 12/09/24 12/09/24 metformin 850 mg tablet 850 mg PO BID 12/09/24 12/09/24 pioglitazone 15 mg tablet 15 mg PO DAILY 12/09/24 12/09/24 Previous Rx's ?Medication ?Instructions ?Recorded mecobalamin (vitamin B12) 1,000 1,000 mcg PO DAILY #30 tabs 01/07/24 mcg chewable tablet potassium chloride 20 mEq 20 meq PO DAILY #30 tabs 07/01/24 tablet,extended release apixaban 2.5 mg tablet 2.5 mg PO BID #180 tabs 10/29/24 Allergies Allergy/AdvReac Type Severity Reaction Status Date / Time morphine Allergy ALGY-formic Verified 07/01/24 12:03 ation ofloxacin (From Floxin) Allergy ADR-Anxiety Verified 07/01/24 12:03 red dye Allergy vomit Verified 07/01/24 12:03 [id number]-PfR Reductase AdvReac myalgias Verified 07/01/24 12:03 Inhibitor effexor AdvReac Intermediate foggy Uncoded 08/05/24 07:09 Review of Systems Const: Denies: fever(s) or chills Card: Denies: chest pain or palpitations Resp: Denies: dyspnea or productive cough GI: Denies: abdominal pain, nausea or vomiting Skin/Breast: Denies: rash Neuro: Denies: headache(s) or dizziness Psych: Reports: other (Please see HPI) PFSH ED PFSH: Medical History Anticoagulation adequate with anticoagulant therapy Morbid obesity Arthritis Anemia GERD (gastroesophageal reflux disease) / Hiatal hernia Hyperlipidemia Hypertension Gout Depression Diabetes Cervical disc disease Asthma Surgical History History of umbilical hernia repair (04/18/22) History of esophagogastroduodenoscopy (EGD) Hx of cholecystectomy Hx of colonoscopy 2018 or 2019 History of carpal tunnel release Right Elbow dislocation Right History of bilateral salpingo-oophorectomy (BSO) History of hysterectomy Status post bilateral knee replacements Family History Other Cancer Diabetes Social History Smoking and tobacco/nicotine status: unknown if used tobacco/nicotine Alcohol intake: never Physical Exam Const: COMMON NORMALS: no acute distress, patient oriented x3, healthy appearing and alert Resp: COMMON NORMALS: normal respiratory effort, No use of accessory muscles and clear to auscultation bilaterally AUSCULTATION: clear to auscultation bilaterally Cardio: COMMON NORMALS: regular rate and regular rhythm RATE: regular rate RHYTHM: regular rhythm GI: COMMON NORMALS: Soft to palpation and non-tender PALPATION: Yes Soft to palpation Extremity: COMMON NORMALS: normal to inspection, full ROM and capillary refill normal Neuro: COMMON NORMALS: patient oriented x3, CN's II-XII intact bilaterally and no focal motor deficits SENSORIUM/ORIENTATION: Yes alert Psych: COMMON NORMALS: cooperative, speech normal, denies hallucinations, denies homicidal ideation and denies suicidal ideation SPEECH: Yes normal speech Course Vital Signs: Vital signs: Vital Signs Temperature 98.1 F 12/09/24 15:10 Pulse Rate 77 12/09/24 19:22 Respiratory Rate 18 12/09/24 15:10 Blood Pressure 137/96 12/09/24 19:22 Pulse Oximetry 96 12/09/24 19:22 Oxygen Delivery Me thod Room Air 12/09/24 19:22 MDM - Psych Medical Decision Making Patient was seen evaluated and medically cleared following labs. There is no acute findings on labs and they all appear to be near her baseline when reviewed. Patient does have a 96-hour hold due to concerns with hallucinations and other behavioral issues. Patient was accepted by Dr. Jacobsen to [facility]. She was transferred via EMS in stable condition. Lab Data 12/09/24 15:56 12/09/24 15:56 Radiology Impressions Chest X-Ray 12/09/24 17:47 IMPRESSION: 1. No acute cardiopulmonary findings. 2. Stable mild cardiomegaly. Laboratory Results WBC 8.64 10^3/uL (3.29-11.43) 12/09/24 15:56 RBC 4.04 10^6/uL (3.85-5.65) 12/09/24 15:56 Hgb 11.40 g/dL (11.27-16.99) 12/09/24 15:56 Hct 36.9 % (36-47) 12/09/24 15:56 MCV 91.3 fl (85-98) 12/09/24 15:56 MCH 28.2 pg (27-33) 12/09/24 15:56 MCHC 30.9 g/dL (30-55) 12/09/24 15:56 RDW 14.0 % (12.1-15.1) 12/09/24 15:56 Plt Count 218 10^3/cmm (157-399) 12/09/24 15:56 MPV 10.8 fL (7.4-10.4) H 12/09/24 15:56 Neut % (Auto) 79.9 % 12/09/24 15:56 Lymph % (Auto) 12.8 % 12/09/24 15:56 [place] % (Auto) 6.4 % 12/09/24 15:56 Eos % (Auto) 0.5 % 12/09/24 15:56 Baso % (Auto) 0.2 % 12/09/24 15:56 Neut # (Auto) 6.90 10^3/uL (1.8-7.7) 12/09/24 15:56 Lymph # (Auto) 1.1 10^3/uL (0.8-4.8) 12/09/24 15:56 [place] # (Auto) 0.6 10^3/uL (0.2-0.9) 12/09/24 15:56 Eos # (Auto) 0.0 10^3/uL (0.0-0.8) 12/09/24 15:56 Baso # (Auto) 0.0 10^3/uL (0.0-0.1) 12/09/24 15:56 Nucleated RBC % (auto) 0 % 12/09/24 15:56 Nucleated RBCs # 0.0 /100WBC 12/09/24 15:56 Sodium 142 mmol/L (136-145) 12/09/24 15:56 Potassium 4.1 mmol/L (3.5-5.1) 12/09/24 15:56 Chloride 102 mmol/L (98-107) 12/09/24 15:56 Carbon Dioxide 26 mmol/L (22-29) 12/09/24 15:56 Anion Gap 18.1 (5-19) 12/09/24 15:56 BUN 30 mg/dL (8-23) H 12/09/24 15:56 Creatinine 1.2 mg/dL (0.5-0.9) H 12/09/24 15:56 GFR Calculation 44.4 mL/min (90-130) L 12/09/24 15:56 Glucose 269 mg/dL (65-115) H 12/09/24 15:56 Calculated Osmolality 310 mOsm/kg (285-295) H 12/09/24 15:56 Calcium 9.3 mg/dL (8.5-10.5) 12/09/24 15:56 Total Bilirubin 0.2 mg/dL (0.15-1.2) 12/09/24 15:56 AST 16 U/L (0-32) 12/09/24 15:56 ALT 15 U/L (0-33) 12/09/24 15:56 Alkaline Phosphatase 90 U/L (35-105) 12/09/24 15:56 Total Protein 6.7 g/dL (6.6-8.7) 12/09/24 15:56 Albumin 4.2 g/dL (3.5-5.2) 12/09/24 15:56 Globulin 2.5 g/dL (1.3-4.6) 12/09/24 15:56 TSH 1.63 uIU/mL (0.27-4.20) 12/09/24 15:56 Urine Color Yellow (Yellow) 12/09/24 16:10 Urine Appearance Clear (CLEAR) 12/09/24 16:10 Urine pH 5.0 (5-7) 12/09/24 16:10 Ur Specific [place] 1.015 (1.005-1.030) 12/09/24 16:10 Urine Protein Negative (Negative) 12/09/24 16:10 Urine Glucose (UA) Negative (Normal) 12/09/24 16:10 Urine Ketones Trace (Negative) 12/09/24 16:10 Urine Blood Negative (Negative) 12/09/24 16:10 Urine Nitrate Negative (Negative) 12/09/24 16:10 Urine Bilirubin Negative (Negative) 12/09/24 16:10 Urine Urobilinogen 1.0 mg/dL (Negative) 12/09/24 16:10 Ur Leukocyte Esterase Trace (Negative) A 12/09/24 16:10 Urine RBC 0-2 /hpf (0-2) 12/09/24 16:10 Urine WBC 0-5 /hpf (0-5) 12/09/24 16:10 Ur Squamous Epith Cells 0-5 /hpf (0-5) 12/09/24 16:10 Amorphous Sediment Not Reportable 12/09/24 16:10 Urine Bacteria None seen /hpf (NONE) 12/09/24 16:10 Hyaline Casts 9.91 /lpf 12/09/24 16:10 Salicylates < 0.3 mg/dL (3-10) L 12/09/24 15:56 Urine Opiates Screen Negative ng/mL (Negative) 12/09/24 16:10 Acetaminophen < 5.0 ug/mL (10-30) L 12/09/24 15:56 Ur Barbiturates Screen Negative ng/mL (Negative) 12/09/24 16:10 Ur Phencyclidine Scrn Negative ng/mL (Negative) 12/09/24 16:10 Ur Amphetamines Screen Negative ng/mL (Negative) 12/09/24 16:10 U Benzodiazepines Scrn Negative ng/mL (Negative) 12/09/24 16:10 Urine Cocaine Screen Negative ng/mL (Negative) 12/09/24 16:10 U Marijuana (THC) Screen Negative ng/mL (Negative) 12/09/24 16:10 Ethyl Alcohol < 10 mg/dL (0-10) 12/09/24 15:56 Influenza A (PCR) Negative (Negative) 12/09/24 16:10 Influenza Type B (PCR) Negative (Negative) 12/09/24 16:10 RSV (PCR) Negative (Negative) 12/09/24 16:10 SARS-CoV-2 (PCR) Negative (Negative) 12/09/24 16:10 All radiology interpretation(s) finalized by discharge Discharge Plan Discharge Patient Disposition: Xfer Psychiatric Hosp Clinical Impression: Hearing voices, Depression, Hallucinations Condition: Stable Prescriptions: No Action magnesium oxide 400 mg (241.3 mg magnesium) tablet 400 mg PO DAILY mecobalamin (vitamin B12) 1,000 mcg tablet,chewable 1,000 mcg PO DAILY Qty: 30 11RF potassium chloride 20 mEq tablet extended release 20 meq PO DAILY Qty: 30 11RF apixaban 2.5 mg tablet 2.5 mg PO BID Qty: 180 3RF multivitamin Tablet 1 tab PO QAM ascorbic acid (vitamin C) [Vitamin C] 1,000 mg Tablet 1,000 mg PO QAM levothyroxine 25 mcg tablet 25 mcg PO DAILY metoprolol tartrate 50 mg tablet 25 mg PO DAILY omeprazole 20 mg capsule,delayed release(DR/EC) 20 mg PO DAILY hydrochlorothiazide 25 mg tablet 25 mg PO DAILY fluticasone propionate 50 mcg/actuation spray,suspension 2 spray intranasal DAILY PRN (Reason: allergies) metformin 850 mg tablet 850 mg PO BID furosemide 20 mg tablet 20 mg PO DAILY pioglitazone 15 mg tablet 15 mg PO DAILY glimepiride 4 mg tablet 4 mg PO BID allopurinol 300 mg tablet 300 mg PO DAILY ferrous sulfate [iron] 325 mg (65 mg iron) Tablet 325 mg PO QAM Referrals: Chato Palma MD [Primary Care Provider] - Print Language: Georgian Coding Level of Care Code ED Rn Renal for Paul Lovelace
--- NOTE | 2024-12-09 16:05 | ECG_ITS ---
[facility] Test Date: 2024-12-09 Pat Name: Kathy Frey Department: Room: Gender: Female Fitness Consultant: : 1955 Requested By: Yo Lua Order Number: [id number] Reese MD: Sarmad Ortega M.D. Measurements Intervals [place] Rate: 87 P: 51 [place]: 141 QRS: 12 QRSD: 84 T: 46 QT: 345 QTc: 416 Interpretive Statements SINUS RHYTHM SEPTAL MYOCARDIAL INFARCTION , PROBABLY OLD [40+ ms Q WAVE IN V1/V2] Compared to ECG 06/28/2024 21:51:39 Sinus tachycardia no longer present Myocardial infarct finding still present Electronically Signed On 12-11-2024 07:43:35 CDT by Sarmad Ortega M.D. [email or web address]
[2024-12-09 16:07] LABS: Basophils % 0.2 %; Eosinophils % 0.5 %; Hematocrit 36.9 % (36-47); Lymphocytes # 1.1 10^3/uL (0.8-4.8); Lymphocytes % 12.8 %; Mean Corpuscular HGB Conc 30.9 g/dL (30-55); Mean Corpuscular Hemoglobin 28.2 pg (27-33); Mean Corpuscular Volume 91.3 fl (85-98); Mean Platelet Volume 10.8 fL (7.4-10.4); Monocytes # 0.6 10^3/uL (0.2-0.9); Monocytes % 6.4 %; Neutrophils % 79.9 %; Nucleated Red Blood Cells % 0 %; Platelet Count 218 10^3/cmm (157-399); Red Blood Count 4.04 10^6/uL (3.85-5.65); White Blood Count 8.64 10^3/uL (3.29-11.43)
[2024-12-09 16:19] LABS: Bilirubin Urine Negative (Negative); Blood Urine Negative (Negative); Glucose Urine UA Negative (Normal); Ketones Urine Trace (Negative); Leukocyte Esterase Urine Trace (Negative); Nitrate Urine Negative (Negative); Protein Urine Negative (Negative); Specific Gravity, Urine 1.015 (1.005-1.030); Urine Appearance Clear (CLEAR); Urine Color Yellow (Yellow)
[2024-12-09 16:21] LABS: Add Urine Microscopic? YES; Bacteria Urine None Seen /hpf; Hyaline Casts Urine 9.91 /lpf; RBC Urine 0-2 /hpf (0-2); Squamous Epithelial Cell Urine 0-5 /hpf (0-5); WBC Urine 0-5 /hpf (0-5)
[2024-12-09 16:26] LABS: Amphetamines Screen Urine Negative (Negative); Barbiturates Screen Urine Negative (Negative); Benzodiazepines Screen Urine Negative (Negative); Cocaine Screen Urine Negative (Negative); Opiate Screen Urine Negative (Negative); PCP Screen Urine Negative (Negative); THC Screen Urine Negative (Negative)
[2024-12-09 16:35] LABS: UA Slide Review UA Slide Review Perf
[2024-12-09 16:50] LABS: Alanine Aminotransferase 15 U/L (0-33); Albumin Level 4.2 g/dL (3.5-5.2); Alkaline Phosphatase 90 U/L (35-105); Anion Gap 18.1 (5-19); Aspartate Amino Transferase 16 U/L (0-32); Blood Urea Nitrogen 30 mg/dL (8-23); Calcium 9.3 mg/dL (8.5-10.5); Carbon Dioxide 26 mmol/L (22-29); Chloride 102 mmol/L (98-107); Globulin 2.5 g/dL (1.3-4.6); Glomerular Filtration Rate 44.4 mL/min (90-130); Glucose 269 mg/dL (65-115); Osmolality Calculated 310 mOsm/kg (285-295); Potassium 4.1 mmol/L (3.5-5.1); Sodium 142 mmol/L (136-145); Thyroid Stimulating Hormone 1.63 uIU/mL (0.27-4.20); Total Bilirubin 0.2 mg/dL (0.15-1.2); Total Protein 6.7 g/dL (6.6-8.7)
[2024-12-09 16:54] LABS: Acetaminophen < 5.0 ug/mL (10-30); Alcohol Level < 10 mg/dL (0-10); Salicylate < 0.3 mg/dL (3-10)
--- NOTE | 2024-12-09 16:55 | PC.NURSE ---
96 hour hold rights read and reviewed with patient. Patient stated I don't understand why i am on a hold. I am not a harm to myself. My did this time me because i am filling for divorce and have an ex-parte on him now. I have no one to care for my cat. This nurse explained that patient was brought in by [facility] with concerns for her safety. This nurse reviewed 96 hour hold rights with patient. Gage herrera security present during reading of rights. Copy of rights given to patient.
--- NOTE | 2024-12-09 17:47 | XRR_ITS ---
PROCEDURE INFORMATION: Exam: XR Chest Exam date and time: 12/09/2024 5:52 PM Age: 69 years old Clinical indication: Screening exam; Other screening TECHNIQUE: Imaging protocol: Radiologic exam of the chest. Views: 1 view. COMPARISON: CR XR chest 1V portable [id number] 06/24/2024 10:44 AM FINDINGS: Lungs: Unremarkable. No consolidation. Pleural spaces: Unremarkable. No pleural effusion. No pneumothorax. Heart/Mediastinum: Mild cardiomegaly. Bones/joints: Unremarkable. XR/XR chest 1V portable [id number] IMPRESSION: 1. No acute cardiopulmonary findings. 2. Stable mild cardiomegaly.
--- NOTE | 2024-12-09 18:09 | PC.NURSE ---
This nurse assumed at approx 1600.
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
[2024-12-09 19:22] VITALS: BP 137/96; PULSE 77; O2SAT 96
[2024-12-09 19:43] LABS: Influenza A NEGATIVE (Negative); Influenza B NEGATIVE (Negative); Respiratory Syncytial Virus Ce NEGATIVE (Negative); SARS-CoV-2 PCR NEGATIVE (Negative)
--- NOTE | 2024-12-09 20:46 | PC.NURSE ---
PT BELONGINGS AND $913 SENT WITH [facility]. SECURITY HAD MONEY LOCKED UP AND BROUGHT TO NURSE TO GIVE TO EMS.
[2024-12-09 21:07] VITALS: BP 127/65; PULSE 72; RESP 16; O2SAT 95
== END 2024-12-09 21:10 ==
PROVIDERS: Emergency Provider Student in an Organized Health Care Education/Training Program; PCP Family Medicine
DX: R44.0 Auditory hallucinations (principal); F32.A Depression, unspecified; Z79.84 Long term (current) use of oral hypoglycemic drugs; Z11.52 Encounter for screening for COVID-19; E11.9 Type 2 diabetes mellitus without complications; E78.5 Hyperlipidemia, unspecified; I10 Essential (primary) hypertension
CPT/HCPCS: 36415; 71045; 80053; 80306; 80307; 81001; 84443; 85025; 87637; 93005; 99285

== ENCOUNTER 2025-01-16 15:27 | Emergency (ER) | payer MEDICARE, SELFPAY ==
[2025-01-16 15:46] VITALS: BP 166/77; PULSE 103; RESP 16; TEMP 36.9; O2SAT 95; BMI 42.0
[2025-01-16 15:59] LABS: Basophils % 0.2 %; Eosinophils % 0.3 %; Lymphocytes # 1.2 10^3/uL (0.8-4.8); Lymphocytes % 12.4 %; Mean Corpuscular HGB Conc 31.4 g/dL (30-55); Mean Corpuscular Volume 89.1 fl (85-98); Mean Platelet Volume 10.8 fL (7.4-10.4); Monocytes # 0.5 10^3/uL (0.2-0.9); Monocytes % 5.6 %; Neutrophils # 7.48 10^3/uL (1.8-7.7); Nucleated Red Blood Cells % 0 %; Platelet Count 225 10^3/cmm (157-399); Red Blood Count 4.04 10^6/uL (3.85-5.65); Red Cell Distribution Width 14.3 % (12.1-15.1); White Blood Count 9.25 10^3/uL (3.29-11.43)
--- NOTE | 2025-01-16 16:04 | ECG_ITS ---
[facility] Test Date: 2025-01-16 Pat Name: Kathy Frey Department: Room: Gender: Female Teletypesetter Monitor: : 1955 Requested By: Nomi Nettles Order Number: [id number] Reese MD: KRISHAN NINA Measurements Intervals [place] Rate: 92 P: 65 [place]: 149 QRS: 19 QRSD: 88 T: 55 QT: 326 QTc: 404 Interpretive Statements SINUS RHYTHM Compared to ECG 12/09/2024 16:05:54 Myocardial infarct finding no longer present Electronically Signed On 01-17-2025 20:59:06 CDT by KRISHAN NINA [email or web address]
[2025-01-16 16:13] LABS: Acetaminophen < 5.0 ug/mL (10-30); Alanine Aminotransferase 12 U/L (0-33); Albumin Level 4.2 g/dL (3.5-5.2); Alcohol Level < 10 mg/dL (0-10); Alkaline Phosphatase 94 U/L (35-105); Anion Gap 17.4 (5-19); Aspartate Amino Transferase 14 U/L (0-32); Blood Urea Nitrogen 36 mg/dL (8-23); Calcium 9.4 mg/dL (8.5-10.5); Carbon Dioxide 24 mmol/L (22-29); Chloride 100 mmol/L (98-107); Creatinine Clr Calc Pharmacy 53.2139; Globulin 2.7 g/dL (1.3-4.6); Glomerular Filtration Rate 44.4 mL/min (90-130); Glucose 270 mg/dL (65-115); Osmolality Calculated 304 mOsm/kg (285-295); Potassium 3.4 mmol/L (3.5-5.1); Salicylate < 0.3 mg/dL (3-10); Sodium 138 mmol/L (136-145); Total Bilirubin 0.2 mg/dL (0.15-1.2); Total Protein 6.9 g/dL (6.6-8.7)
[2025-01-16 16:54] LABS: Bilirubin Urine Negative (Negative); Blood Urine Negative (Negative); Glucose Urine UA Negative (Normal); Ketones Urine Trace (Negative); Leukocyte Esterase Urine 2+ (Negative); Nitrate Urine Negative (Negative); Protein Urine 1+ (Negative); Specific Gravity, Urine 1.019 (1.005-1.030); Urine Appearance Clear (CLEAR); Urine Color Yellow (Yellow)
[2025-01-16 16:59] LABS: Add Urine Microscopic? YES; Bacteria Urine Trace /hpf; Hyaline Casts Urine 23.98 /lpf; RBC Urine 0-2 /hpf (0-2); WBC Urine 21-50 /hpf (0-5)
[2025-01-16 17:04] LABS: Amphetamines Screen Urine Negative (Negative); Barbiturates Screen Urine Negative (Negative); Benzodiazepines Screen Urine Negative (Negative); Cocaine Screen Urine Negative (Negative); Opiate Screen Urine Negative (Negative); PCP Screen Urine Negative (Negative); THC Screen Urine Negative (Negative)
[2025-01-16 17:19] LABS: Add Urine Culture? Yes; UA Slide Review UA Slide Review Perf
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
[2025-01-16 17:49] LABS: Glucose Point of Care 236 mg/dL (70-110)
--- NOTE | 2025-01-16 18:41 | PC.NURSE ---
96 hour hold rights given to patient. Patient verbalized understandings. Patient stated I do not want to be sent back to [place] again please. This nurse told patient i would let the physician know. Patient verbalized understandings. Copy of rights given to patient.
[2025-01-16 20:59] VITALS: BP 119/50; PULSE 71; RESP 18; TEMP 36.6; O2SAT 95
--- NOTE | 2025-01-16 21:00 | PC.NURSE ---
pt contact update this nurse updated pt that with her ex parte order for her this nurse nor anyone here can call him at this time. pt was understanding at this time. pt asked about calling her nocturnist because she has an apt with him tomorrow. this nurse assured pt she would be able to call and speak with them in the AM.
--- NOTE | 2025-01-16 23:09 | XRR_ITS ---
PROCEDURE INFORMATION: Exam: XR Chest Exam date and time: 01/16/2025 11:36 PM Age: 69 years old Clinical indication: Screening exam; Other screening; Additional info: Mhe; Psych w/u TECHNIQUE: Imaging protocol: Radiologic exam of the chest. Views: 1 view. COMPARISON: CR (CHEST, ) 12/09/2024 5:52 PM FINDINGS: Lungs: Emphysematous changes. Pleural spaces: Unremarkable. No pleural effusion. No pneumothorax. Heart/Mediastinum: Cardiomegaly. Bones/joints: Unremarkable. XR/XR chest 1V portable [id number] IMPRESSION: 1. Negative for infiltrate 2. Cardiomegaly. 3. Emphysematous changes.
[2025-01-16 23:48] LABS: Thyroid Stimulating Hormone 2.22 uIU/mL (0.27-4.20)
[2025-01-17 01:28] LABS: Influenza A NEGATIVE (Negative); Influenza B NEGATIVE (Negative); Respiratory Syncytial Virus Ce NEGATIVE (Negative); SARS-CoV-2 PCR NEGATIVE (Negative)
[2025-01-17 05:03] VITALS: BP 159/74; PULSE 95; RESP 17; O2SAT 97
--- NOTE | 2025-01-17 05:47 | PC.NURSE ---
pt transfer report called and paperwork silled out and signed. copy of transfer sheet given to pt at this time.
[2025-01-17 09:02] VITALS: BP 145/72; PULSE 97; O2SAT 95
[2025-01-17 10:32] VITALS: PULSE 97; O2SAT 95
== END 2025-01-17 10:33 ==
PROVIDERS: Emergency Medicine; Emergency Provider Student in an Organized Health Care Education/Training Program; PCP Family Medicine
DX: F22 Delusional disorders (principal); Z79.84 Long term (current) use of oral hypoglycemic drugs; E78.5 Hyperlipidemia, unspecified; E11.9 Type 2 diabetes mellitus without complications; I10 Essential (primary) hypertension; Z11.52 Encounter for screening for COVID-19
CPT/HCPCS: 36415; 36416; 71045; 80053; 80306; 80307; 81001; 82962; 84443; 85025; 87086; 87637; 93005; 99285

== ENCOUNTER → 2025-01-25 07:56 | Outpatient (BNVA) | payer MEDICARE, SELFPAY | PROVIDERS: PCP Family Medicine; Visit Provider Family Medicine | DX: R73.03 Prediabetes (principal); I10 Essential (primary) hypertension; N18.9 Chronic kidney disease, unspecified | CPT/HCPCS: 80053; 80061; 83036; 85025 ==

== ENCOUNTER → 2025-04-28 07:55 | Outpatient (BNVA) | payer MEDICARE, SELFPAY | PROVIDERS: PCP Family Medicine | DX: N18.9 Chronic kidney disease, unspecified (principal); I10 Essential (primary) hypertension; R73.03 Prediabetes | CPT/HCPCS: 80053; 80061; 83036; 85025 ==

== ENCOUNTER → 2025-07-28 07:39 | Outpatient (BNVA) | payer MEDICARE, SELFPAY | PROVIDERS: PCP Family Medicine; Visit Provider Family Medicine | DX: E11.9 Type 2 diabetes mellitus without complications (principal); E78.5 Hyperlipidemia, unspecified; I10 Essential (primary) hypertension | CPT/HCPCS: 80053; 80061; 83036; 84443; 85007; 85027 ==